=== PATIENT | male | born 1940 | race Hispanic/Latino ===

== ENCOUNTER 2017-07-25 20:19 | Inpatient (IN) | payer OTHER, MEDICARE ==
--- NOTE | 2017-07-25 21:08 | CT ---
EXAM: CT Head Without Intravenous Contrast EXAM DATE/TIME: 07/25/2017 8:44 PM CLINICAL HISTORY: 77 years old, male; Injury or trauma and signs and symptoms; Fall; Initial encounter; Concussion / head injury; Other: Lt weakness; Additional info: L weakness TECHNIQUE: Axial computed tomography images of the head/brain without intravenous contrast. All CT scans at this facility use one or more dose reduction techniques, viz.: automated exposure control; ma/kV adjustment per patient size (including targeted exams where dose is matched to indication; i.e. head); or iterative reconstruction technique. Coronal and sagittal reformatted images were created and reviewed. COMPARISON: CT HEAD OR BRAIN W/O CONT 2014-03-29 12:28 FINDINGS: Brain: There is prominence of sulci gyri and ventricles. There is no midline shift. There is decreased attenuation in periventricular white matter. There is a small age indeterminate lacunar infarct in the right basal ganglia. There is left parieto-occipital encephalomalacia. There are no focal masses. There are no focal hemorrhages. Jeffery-white differentiation is visualized. Ventricles: See above Bones: Cranial vault is intact. Soft tissues: There is right frontal scalp swelling with small hematoma. Sinuses: There is no acute sinusitis. Ears and mastoids: Middle ears and mastoids are unremarkable. Orbits: There are no acute orbital abnormalities. IMPRESSION: Mild atrophy and small vessel disease, no bleed; left parieto-occipital infarct; age indeterminate right basal infarct; small right frontal scalp hematoma
[2017-07-25 21:18] LABS: BASO # 0.1 K/uL (0.0-0.2); BASO % 0.6 % (0.0-2.0); EOS # 0.1 K/uL (0.0-0.7); EOS % 1.3 % (0.0-4.0); HEMATOCRIT 45.4 % (35.0-51.0); LYMPH # 1.9 K/uL (1.0-4.3); LYMPH % 16.2 % (20.0-40.0); MEAN CELL VOLUME 93.1 fl (80.0-94.0); MEAN CORPUSCULAR HGB CONC 33.3 g/dL (33.0-37.0); MEAN PLATELET VOLUME 8.4 fl (7.2-11.7); MONO # 0.7 K/uL (0.0-0.8); MONO % 6.4 % (0.0-10.0); NEUT # 8.7 K/uL (1.8-7.0); NEUT % 75.5 % (50.0-75.0); NRBC % 0.3 % (0.0-0.0); RED CELL DISTRIBUTION WIDTH 14.8 % (11.5-14.5); WHITE BLOOD COUNT 11.5 K/uL (4.8-10.8)
--- NOTE | 2017-07-25 21:18 | CT ---
EXAM: CT Cervical Spine Without Intravenous Contrast EXAM DATE/TIME: 07/25/2017 8:45 PM CLINICAL HISTORY: 77 years old, male; Injury or trauma; Fall; Initial encounter; Concussion /head injury; Injury details: Patient fell down stairs; Additional info: Trauma R/O FX TECHNIQUE: Axial computed tomography images of the cervical spine without intravenous contrast. All CT scans at this facility use one or more dose reduction techniques, viz.: automated exposure control; ma/kV adjustment per patient size (including targeted exams where dose is matched to indication; i.e. head); or iterative reconstruction technique. Coronal and sagittal reformatted images were created and reviewed. COMPARISON: There are no prior studies for comparison. FINDINGS: Vertebrae: There is straightening of the cervical lordosis. There is no prevertebral soft tissue swelling. Bony structures are osteopenic. There are small lucent lesions in multiple vertebral bodies. There are no fractures. There is multilevel degenerative change. There is narrowing of the pre-dental space. There is narrowing of all disc spaces. There are bulky osteophytes C4-C5 to T1/T2. There is narrowing of all facet joints.Facet joints align anatomically.Spinous processes align in the expected fashion. There is dystrophic ossification adjacent to the spinous process of C7. Discs/spinal canal/neural foramina: See above. Soft tissues: See above. Thyroid: Thyroid is unremarkable Lung apices: Motion limits evaluation of the lung apices. Lung apices are clear. IMPRESSION: Degenerative change no fracture Additional findings as described above.
[2017-07-25] MEDS ORDERED: Morphine 4 MG/ML VIAL IV STA ×4 (21:26→23:15)
[2017-07-25 21:28] LABS: ALB/GLOB RATIO 1.1 (1.0-2.1); ALCOHOL SERUM < 10 mg/dl (0-10); ALKALINE PHOSPHATASE 74 U/L (38-126); ALT/SGPT 35 U/L (21-72); AST/SGOT 25 U/L (17-59); BILIRUBIN,TOTAL 1.7 mg/dl (0.2-1.3); BLOOD UREA NITROGEN 34 mg/dl (9-20); CARBON DIOXIDE 27 mmol/L (22-30); CHLORIDE 103 mmol/L (98-107); CHOLESTEROL 183 mg/dL (0-199); GFR AFRICAN-AMERICAN 42; GLUCOSE,RANDOM 165 mg/dL (75-110); POTASSIUM 4.5 MMOL/L (3.6-5.0); SODIUM 138 mmol/l (132-148)
[2017-07-25] MEDS ORDERED: Morphine 4 MG/ML VIAL ONE ×3 (21:29→23:14)
[2017-07-25 21:34] LABS: PARTIAL THROMBOPLASTIN TIME 30.9 Seconds (25.6-37.1)
[2017-07-25] MEDS ORDERED: Iodixanol 320 MG/ML 100 ML BOTTLE IV ONE (21:39)
[2017-07-25] MEDS ORDERED: Sodium Chloride 0.9% 50 ML IV ONE (21:40)
--- NOTE | 2017-07-25 21:40 | CT ---
EXAM: CT Chest Without Intravenous Contrast CLINICAL HISTORY: 77 years old, male; Injury or trauma; Fall; Initial encounter; Concussion/head injury; Concussion /head injury; Additional info: Fall down stairs, CVA, trauma TECHNIQUE: Axial computed tomography images of the chest without intravenous contrast. All CT scans at this facility use one or more dose reduction techniques, viz.: automated exposure control; ma/kV adjustment per patient size (including targeted exams where dose is matched to indication; i.e. head); or iterative reconstruction technique. Coronal and sagittal reformatted images were created and reviewed. COMPARISON: CT chest 10/02/09 FINDINGS: Artifacts: Motion artifact degrades image quality. Lungs and Pleural Spaces: Trachea and main bronchi are patent. There are centrilobular emphysematous changes greatest in the right upper lobe. There is focal airspace disease in the lingula. There is dependent atelectasis. Left lower lobe is hyperinflated with attenuation of markings. There are mild atelectatic changes in the left upper lobe. There is a small left effusion. There is no right effusion. There is elevation of the left diaphragm. Heart and vasculature: Heart size is normal. There are coronary artery calcifications. There is a very small pericardial effusion.Aorta and main pulmonary artery are normal in caliber. There are vascular calcifications. Mediastinum: Esophagus is unremarkable. There are multiple mildly prominent mediastinal nodes. Suzanne noncontrast Thyroid: Thyroid is only partially imaged. Bones/joints: There are degenerative changes in the osseus structures. There are bridging osteophytes and syndesmophytes throughout the thoracic spine. There are no acute displaced rib fractures. There are postsurgical changes in the right shoulder. There are degenerative changes in the osseus structures. Soft tissues: unremarkable Upper abdomen: Referred to follow report for abdominal findings IMPRESSION: Emphysema; increasing left lower lobe hyperinflation with mild compressive atelectasis of the left upper lobe; a small left effusion; minimal lingular airspace disease; atherosclerotic disease; no acute displaced rib fractures Additional findings as described above. EXAM: CT Abdomen and Pelvis Without Intravenous Contrast EXAM DATE/TIME: 07/25/2017 8:54 PM CLINICAL HISTORY: 77 years old, male; Injury or trauma; Fall; Initial encounter; Concussion/head injury; Concussion /head injury; Additional info: Fall down stairs, CVA, trauma TECHNIQUE: Axial computed tomography images of the abdomen and pelvis without intravenous contrast. All CT scans at this facility use one or more dose reduction techniques, viz.: automated exposure control; ma/kV adjustment per patient size (including targeted exams where dose is matched to indication; i.e. head); or iterative reconstruction technique. Coronal and sagittal reformatted images were created and reviewed. COMPARISON: There are no prior studies for comparison. FINDINGS: Artifacts: Streak artifact degrades image quality. Lower thorax: Refer to prior report for chest findings ABDOMEN: Liver: unremarkable Gallbladder and bile ducts: Gallbladder is partially distended.Common duct is unremarkable. Pancreas: Pancreas is atrophic. Spleen: unremarkable Adrenals: unremarkable Kidneys and ureters: Kidneys appear mildly atrophic. There are parapelvic cysts. There is no pelvocaliectasis or ureterectasis. Stomach and bowel: Stomach is incompletely distended. Rotation is normal. There is fluid and air throughout the small bowel. There is no small bowel obstruction. Terminal ileum is unremarkable. Appendix is not visualized. There is no pericecal inflammation. Colon is incompletely distended which limits evaluation.There is diverticulosis. Appendix: See stomach and bowel PELVIS: Bladder: Bladder is incompletely distended. There is mild bladder wall thickening. Reproductive: Prostate is enlarged. Seminal vesicles are unremarkable. ABDOMEN and PELVIS: Intraperitoneal space: There is no free air or free fluid. Bones/joints: Bony structures are osteopenic. There are bridging osteophytes and syndesmophytes at multiple levels. There is degenerative disc disease at multiple levels. There is partial ankylosis of the left sacroiliac joint. Soft tissues: There are small collateral vessels in the left inguinal region and abdominal wall. There is a fat containing left inguinal hernia. There is a fat-containing umbilical hernia. Vasculature: An IVC filter is in place.There are vascular calcifications. Lymph nodes: There is no pathologic adenopathy. Other findings: Additional findings as described above. IMPRESSION: No acute solid visceral or bowel injury, no fracture seen Additional findings as described above.
--- NOTE | 2017-07-25 22:40 | ED PDOC ---
HPI:STROKE - Time Time: 20:30 - Historian Historian: Patient, Family - Chief Complaint Chief Complaint: Weakness, Confusion, Facial droop - Onset Date: 07/25/17 Time: 19:15 - Timing Timing: Currently Symptomatic - Context Context: Walking, Tripped - Location Locate left: Lower extremity - Severity of pain Maximum severity:: Severe Severity Current: Severe - Associated Symptoms Associated symptoms:: Anticoagulant use - Exacerbated by Exacerbated by:: Postition Change - Relieved by Relieved by:: Nothing - TPA Positive for Contraindication: Yes Reason tPA is not being Administered: trauma fall down 17 stairs, already using pradaxa - Notes: Notes:: 77yo male arrives via EMS w family states fell down 1 flight of stairs (17 carpeted stairs) to a landing where he was found by a neighbor about 15-20min ( estimated) after fall. On arrival to ED found to have L facial droop and left sided weakness, code stroke initiated. is poor historian, thinks he takes pradaxa for a blood clot? Unsure if has atrial fib history. Denies etoh abuse. Patient somewhat neglectful of left weakness, c/o back and left leg pain. Does state he went to a wake tonight, was more SOB than normal, attempted to climb 5 flights to apartment when SOB worsened, he remembers reaching for inhaler but states "Left arm wouldnt work right", then remembers falling. PMD Isaac Flores NIHSS Stroke Scale - Date/Time Evaluation Performed Date Performed: 07/25/17 Time Performed: 20:30 When Was NIHSS Performed: Baseline - How Severe is the Stroke Level of Consciousness: 0=Alert LOC to Questions: 0=Both comments correct LOC to commands: 0=Obeys both correctly Best Gaze: 0=Normal Visual: 0=No visual loss Facial: 2=Partial (lower face paralysis) Motor Arm - Left: 2=Falls before 10 sec Motor Arm - Right: 0=No drift Motor Leg - Left: 3=No effort against gravity (falls immediately) Motor Leg - Right: 0=No drift Limb Ataxia: 1=Present Upper or Lower Sensory: 0=Normal Best Language: 0=No aphasia Dysarthia: 0=Normal articulation Extinction & Inattention (Neglect): 1=Partial neglect (mild edmar-attention) Score: 9 rTPA Inclusion/Exclusion - Refusal of Treatment Patient Refused Treatment: No - Inclusion Criteria for Altepase Patient is 18 years or Older: Yes The Clinical Diagnosis of Ischemic Stroke That is Causing a Potentially Disabling Neurological Deficit: Yes Time of Onset is Well Established to be Less Than 270 Minute Before Treatment Would Begin: Yes Risk/Benefit Discussed With Patient/Family Member Present: Yes - Exclusion Criteria for Altepase Uncontrolled Hypertension at Time of Treatment (Systolic BP above 185 or Diastolic BP above 110 mmHg): No Less Than 3 Months Had a Recent: Head Trauma Active Internal Bleeding: No Known Bleeding Diathesis Including but Not Limited to: Platelets Below 100,000/ mm,PTT Above 40 sec After Heparin Use, Current Use of Oral Anitcoagulant With INR Greater Than 1.7 or PT Greater Than 15 secs: No Evidence of an Intracranial Hemorrhage: No - Warning to TPA With Conditions Following Conditions Weighed Against Anticipated Benefit: Yes Condition: Rapid Improvement Additional Condition (For 3-4.5 Hour Window): Any anticoagulant use prior to admission (Even if INR less than 1.7) (fall with multisystem trauma) Past Medical History Reviewed: Historical Data, Nursing Documentation, Vital Signs Vital Signs: Last Vital Signs Temp 98.1 F 07/25/17 20:22 Pulse 87 07/25/17 20:22 Resp 18 07/25/17 20:22 BP 143/92 H 07/25/17 20:22 Pulse Ox 96 07/25/17 20:22 - Medical History PMH: Atrial Fibrillation, COPD, HTN - Family History Family History: States: Unknown Family Hx - Living Arrangements Living Arrangements: With Family - Social History Current smoker - smoking cessation education provided: No - Allergies Allergies/Adverse Reactions: Allergies Allergy/AdvReac Type Severity Reaction Status Date / Time No Known Allergies Allergy Verified 07/25/17 20:24 Review of Systems Constitutional: Negative for: Fever, Chills Cardiovascular: Negative for: Chest Pain, Palpitations Respiratory: Positive for: Cough, Shortness of Breath Gastrointestinal: Negative for: Nausea, Vomiting, Abdominal Pain Musculoskeletal: Positive for: Shoulder Pain, Arm Pain, Back Pain, Hand Pain, Leg Pain, Foot Pain Skin: Negative for: Rash, Lesions, Jaundice Neurological: Positive for: Weakness, Dizziness. Negative for: Numbness, Headache Psych: Negative for: Depression Physical Exam - Reviewed Nursing Documentation Reviewed: Yes Vital Signs Reviewed: Yes - Physical Exam Appears: Positive for: Non-toxic (L facial droop with slight dysarthria, dry, scattered abrasions extremities) Head Exam: Positive for: NORMAL INSPECTION, NORMOCEPHALIC. Negative for: ATRAUMATIC (L scalp frontal contusion) Skin: Positive for: Normal Color, Warm, DRY Eye Exam: Positive for: EOMI, Normal appearance, PERRL ENT: Positive for: Normal ENT Inspection Neck: Positive for: Normal, Painless ROM Cardiovascular/Chest: Positive for: Tachycardia, Irregularly Irregular Respiratory: Positive for: Decreased Breath Sounds. Negative for: Respiratory Distress Pulses-Radial (L): 3+/4+ Pulses-Radial (R): 3+/4+ Gastrointestinal/Abdominal: Positive for: Bowel Sounds, Soft, Other (umbilical hernia). Negative for: Tenderness Back: Positive for: Vertebral Tenderness, Decreased ROM, Muscle Spasm Extremity: Positive for: Tenderness (L hand, L anlkle), Swelling (L wrist/hand/ L ankle) Neurologic/Psych: Positive for: Alert, manager transplant II-XII (L facial droop), Motor/ Sensory Deficits, Other (LUE and LLE weakness, L facial droop, mild confusion/ L neglect). Negative for: Oriented, Aphasia - Laboratory Results Result Diagrams: 07/25/17 21:02 07/25/17 21:02 - ECG O2 Sat by Pulse Oximetry: 96 Pulse Ox Interpretation: Normal Medical Decision Making Medical Decision Making: code stroke initiated CT brain report reviewed d/w rads 9:00pm Dr Slaughter [employer] neuro contacted, case discussed, not candidate for peripheral TPA given major trauma and already on pradaxa. Rec obtain CTA head/neck for possible intervention CTA brain/neck revealed large PE left main/ descending. CT CHest/abd/pelv without contrast ordered r/o traumatic injury. Report from [facility] reviewed. D/w pulmonary and PMD Dr Gray who agrees likely start heparin, unsure if taking pradaxa given developing major PE. D/w Dr Slaughter- consider PFO, need echo w bubble study. ASA 300mg rectal given. Also c/o polyarthralgia from fall- found to have nondisplaced L distal fib fracture, podiatry notified for am consult and L post splint LE placed. L hand appears chronic DJD, unclear if fracture present. Pt states +prior old navicular fracture. Splint placed to L hand. On re-eval at 1030p- L motor improved to 4/5 LUE and LLE. Facial droop improved but persists. Labs reviewed, mild elev BUN/Horse Race Starter, benefits of IV contrast outweight risks. IVF initiated. Admitted Dr Overton hospitalist ICU given acute CVA, acute PE, trauma. Family updated on findings and decision for blood thinning medication discussed. Risks of bleeding explained and questions answered, benefits of treatment of large PE outweigh risks. CTA: VASCULATURE: Right common carotid artery: Unremarkable. No significant stenosis. No dissection or occlusion. Right internal carotid artery: Less than 30% stenosis is identified within the right internal carotid artery, at the level of the bifurcation. The extracranial segment is otherwise patent with no significant stenosis. No dissection or occlusion. Right external carotid artery: Unremarkable. No occlusion. Right vertebral artery: Unremarkable. No significant stenosis. No dissection or occlusion. Left common carotid artery: Unremarkable. No significant stenosis. No dissection or occlusion. Left internal carotid artery: Approximately 30% narrowing is identified at the level of the bifurcation. Extracranial segment is otherwise patent with no significant stenosis. No dissection or occlusion. Left external carotid artery: Unremarkable. No occlusion. Left vertebral artery: Unremarkable. No significant stenosis. No dissection or occlusion. ADELAASYA Marquis | Final Radiology Report CONFIDENTIALITY STATEMENT This report is intended only for use by the referring physician, and only in accordance with law. If you received this in error, call [phone]. Page 3 of 3 NECK: Bones/joints: No acute fracture. No dislocation. Soft tissues: Unremarkable as visualized. No mass. Within the visualized lung britton, is a significant filling defect within the left main and descending pulmonary artery, consistent with pulmonary embolus. CAROTID STENOSIS REFERENCE USING NASCET CRITERIA: % ICA stenosis = (1 - narrowest ICA diameter/diameter of distal cervical ICA) x 100. Mild - <50% stenosis. Moderate - 50-69% stenosis. Severe - 70-94% stenosis. Near occlusion - 95-99% stenosis. Occluded - 100% stenosis. IMPRESSION: Mild stenosis within the bilateral internal carotid arteries at the level of the bifurcations, as detailed above. Findings within the left main and descending pulmonary artery, consistent with pulmonary embolus. Thank you for allowing us to participate in the care of your patient. Dictated and Authenticated by: Leigh Kothari MD 07/25/2017 11:10 PM Eastern Time ([place] & [place]) TECHNIQUE: Axial computed tomography images of the abdomen and pelvis without intravenous contrast. All CT scans at this facility use one or more dose reduction techniques, viz.: automated exposure control; ma/kV adjustment per patient size (including targeted exams where dose is matched to indication; i.e. head); or iterative reconstruction technique. Coronal and sagittal reformatted images were created and reviewed. COMPARISON: There are no prior studies for comparison. FINDINGS: Artifacts: Streak artifact degrades image quality. Lower thorax: Refer to prior report for chest findings ABDOMEN: Liver: unremarkable Gallbladder and bile ducts: Gallbladder is partially distended.Common duct is unremarkable. Pancreas: Pancreas is atrophic. Spleen: unremarkable Adrenals: unremarkable Kidneys and ureters: Kidneys appear mildly atrophic. There are parapelvic cysts. There is no pelvocaliectasis or ureterectasis. Stomach and bowel: Stomach is incompletely distended. Rotation is normal. There is fluid and air throughout the small bowel. There is no small bowel obstruction. Terminal ileum is unremarkable. Appendix is not visualized. There is no pericecal inflammation. Colon is incompletely distended which limits evaluation.There is diverticulosis. Appendix: See stomach and bowel PELVIS: Bladder: Bladder is incompletely distended. There is mild bladder wall thickening. Reproductive: Prostate is enlarged. Seminal vesicles are unremarkable. ABDOMEN and PELVIS: Intraperitoneal space: There is no free air or free fluid. Bones/joints: Bony structures are osteopenic. There are bridging osteophytes and syndesmophytes at multiple levels. There is degenerative disc disease at multiple levels. There is partial ankylosis of the left sacroiliac joint. Soft tissues: There are small collateral vessels in the left inguinal region and abdominal wall. There is a fat containing left inguinal hernia. There is a fat-containing umbilical hernia. Vasculature: An IVC filter is in place.There are vascular calcifications. Lymph nodes: There is no pathologic adenopathy. Other findings: Additional findings as described above. IMPRESSION: No acute solid visceral or bowel injury, no fracture seen Additional findings as described above. Thank you for allowing us to participate in the care of your patient. Dictated and Authenticated by: Dorie Lee MD 07/25/2017 9:39 PM Eastern Time ([place] & [place]) CLINICAL HISTORY: 77 years old, male; Injury or trauma and signs and symptoms; Fall; Initial encounter; Concussion / head injury; Other: Lt weakness; Additional info: L weakness TECHNIQUE: Axial computed tomography images of the head/brain without intravenous contrast. All CT scans at this facility use one or more dose reduction techniques, viz.: automated exposure control; ma/kV adjustment per patient size (including targeted exams where dose is matched to indication; i.e. head); or iterative reconstruction technique. Coronal and sagittal reformatted images were created and reviewed. COMPARISON: CT HEAD OR BRAIN W/O CONT 2014-03-29 12:28 FINDINGS: Brain: There is prominence of sulci gyri and ventricles. There is no midline shift. There is decreased attenuation in periventricular white matter. There is a small age indeterminate lacunar infarct in the right basal ganglia. There is left parieto-occipital encephalomalacia. There are no focal masses. There are no focal hemorrhages. Jeffery-white differentiation is visualized. Ventricles: See above Bones: Cranial vault is intact. Soft tissues: There is right frontal scalp swelling with small hematoma. Sinuses: There is no acute sinusitis. Ears and mastoids: Middle ears and mastoids are unremarkable. Orbits: There are no acute orbital abnormalities. IMPRESSION: Mild atrophy and small vessel disease, no bleed; left parieto- occipital infarct; age indeterminate right basal infarct; small right frontal scalp hematoma Thank you for allowing us to participate in the care of your patient. LORENE ASYA | Final Radiology Report CONFIDENTIALITY STATEMENT This report is intended only for use by the referring physician, and only in accordance with law. If you received this in error, call [phone]. Page 2 of 2 Dictated and Authenticated by: Dorie Lee MD Disposition - Clinical Impression Clinical Impression: Pulmonary embolism, CVA (cerebral vascular accident), Left fibular fracture, Dehydration, Wrist injury - Patient ED Disposition Is Patient to be Admitted: Yes - Disposition Disposition Time: 22:30 Condition: CRITICAL Forms: [employer] (Romanian) - Pt Status Changed To: Hospital Disposition Of: Inpatient - Admit Certification Admit to Inpatient:: After my assessment, the patient will require hospitalization for at least two midnights. This is because of the severity of symptoms shown, intensity of services needed, and/or the medical risk in this patient being treated as an outpatient. - POA Present On Arrival: Falls Or Trauma
[2017-07-25] MEDS ORDERED: Sodium Chloride 0.9% 1,000 ML IV STA (23:10)
--- NOTE | 2017-07-25 23:10 | CT ---
EXAM: CT Angiography Head With Intravenous Contrast CLINICAL HISTORY: 77 years old, male; Signs and symptoms; Weakness; Additional info: L side weakness. TECHNIQUE: Axial computed tomographic angiography images of the head with intravenous contrast using CT angiography protocol. All CT scans at this facility use one or more dose reduction techniques, viz.: automated exposure control; ma/kV adjustment per patient size (including targeted exams where dose is matched to indication; i.e. head); or iterative reconstruction technique. MIP reconstructed images were created and reviewed. Coronal and sagittal reformatted images were created and reviewed. CONTRAST: 80 mL of [id number] administered intravenously. COMPARISON: No relevant prior studies available. FINDINGS: Right internal carotid artery: No acute findings. Intracranial segment is patent with no significant stenosis. No aneurysm. Right anterior cerebral artery: Unremarkable. No occlusion or significant stenosis. No aneurysm. Right middle cerebral artery: Unremarkable. No occlusion or significant stenosis. No aneurysm. Right posterior cerebral artery: Unremarkable. No occlusion or significant stenosis. No aneurysm. Right vertebral artery: Mild atherosclerotic change. Left internal carotid artery: 30-40% stenosis of the cavernous internal carotid artery. The Intracranial segment is otherwise patent with no significant stenosis. No aneurysm. Left anterior cerebral artery: Unremarkable. No occlusion or significant stenosis. No aneurysm. Left middle cerebral artery: Unremarkable. No occlusion or significant stenosis. No aneurysm. Left posterior cerebral artery: Unremarkable. No occlusion or significant stenosis. No aneurysm. Left vertebral artery: Mild atherosclerotic change. Basilar artery: Unremarkable. No occlusion or significant stenosis. No aneurysm. IMPRESSION: Mild stenosis within the supraclinoid left internal carotid artery, as detailed above. Otherwise, largely unremarkable CTA examination of the brain, as detailed above. EXAM: CT Angiography Neck With Intravenous Contrast CLINICAL HISTORY: 77 years old, male; Signs and symptoms; Weakness; Additional info: L side weakness. TECHNIQUE: Axial computed tomographic angiography images of the neck with intravenous contrast using CT angiography protocol. All CT scans at this facility use one or more dose reduction techniques, viz.: automated exposure control; ma/kV adjustment per patient size (including targeted exams where dose is matched to indication; i.e. head); or iterative reconstruction technique. MIP reconstructed images were created and reviewed. Coronal and sagittal reformatted images were created and reviewed. CONTRAST: 80 mL of [id number] administered intravenously. COMPARISON: CT - HEAD W/O (CODE STROKE) 2017-07-25 20:46 FINDINGS: VASCULATURE: Right common carotid artery: Unremarkable. No significant stenosis. No dissection or occlusion. Right internal carotid artery: Less than 30% stenosis is identified within the right internal carotid artery, at the level of the bifurcation. The extracranial segment is otherwise patent with no significant stenosis. No dissection or occlusion. Right external carotid artery: Unremarkable. No occlusion. Right vertebral artery: Unremarkable. No significant stenosis. No dissection or occlusion. Left common carotid artery: Unremarkable. No significant stenosis. No dissection or occlusion. Left internal carotid artery: Approximately 30% narrowing is identified at the level of the bifurcation. Extracranial segment is otherwise patent with no significant stenosis. No dissection or occlusion. Left external carotid artery: Unremarkable. No occlusion. Left vertebral artery: Unremarkable. No significant stenosis. No dissection or occlusion. NECK: Bones/joints: No acute fracture. No dislocation. Soft tissues: Unremarkable as visualized. No mass. Within the visualized lung britton, is a significant filling defect within the left main and descending pulmonary artery, consistent with pulmonary embolus. CAROTID STENOSIS REFERENCE USING NASCET CRITERIA: % ICA stenosis = (1 - narrowest ICA diameter/diameter of distal cervical ICA) x 100. Mild - <50% stenosis. Moderate - 50-69% stenosis. Severe - 70-94% stenosis. Near occlusion - 95-99% stenosis. Occluded - 100% stenosis. IMPRESSION: Mild stenosis within the bilateral internal carotid arteries at the level of the bifurcations, as detailed above. Findings within the left main and descending pulmonary artery, consistent with pulmonary embolus.
[2017-07-25 23:52] VITALS: BMI 30.1
[2017-07-25] MEDS ORDERED: Heparin25000 units/250ml 1/2NS 25,000 UNITS/250 ML BAG IV ONE (23:54)
[2017-07-26] MEDS ORDERED: Metoprolol 1 mg/ml Inj IVP SCH (00:15)
--- NOTE | 2017-07-26 00:15 | CP.PCM.HP ---
History of Present Illness - History of Present Illness History of Present Illness: CC: Fall, R CVA, PE; ankle fx HPI: 77 y/o male who was brought in by EMS after he fell down a flight of 17 stairs. Per report by him and family, dropped patient off at front of apt after an event and went to park the car. Patient was climbing up stairs and became SOB, and tried to use his inhaler, however, he noted difficulty using L arm to take out inhaler. He then felt unsteady, and apparently fell down the stairs. He was found by a neighbor awake, but confused. Neighbor called EMS, by which time had arrived as well. It was about 25 minutes between when he was dropped off and when EMS was called. When family arrived in ED, did note a facial droop on L which was new, as well as slurred speech. Patient currently continues to c/o LUE and LLE weakness, but states better than it was earlier. Denies CP, SOB. Denies f/c/n/v/d. Patient denies any EtOH. Patient is on Pradaxa which he says he is compliant with. PMD: Isaac ROS: 14 systems reviewed, negative other than HPI MHx: COPD, DM2, A fib, prior DVT/PE SHx: None Allergies: NKDA Medications: As per med rec (on Pradaxa as above) Family Hx: No findings relevant to current condition Social: Lives with family, prior history of smoking, prior EtOH, no current usage Surrogate: , info on chart Present on Admission - Present on Admission Any Indicators Present on Admission: No Past Patient History - Past Social History Smoking Status: Former Smoker - CARDIAC Hx Atrial Fibrillation: Yes Hx Hypertension: Yes - PULMONARY Hx Chronic Obstructive Pulmonary Disease (COPD): Yes - GASTROINTESTINAL Other/Comment: GI Bleed - PSYCHIATRIC Hx Substance Use: No - SURGICAL HISTORY Other/Comment: left hand Meds Allergies/Adverse Reactions: Allergies Allergy/AdvReac Type Severity Reaction Status Date / Time No Known Allergies Allergy Verified 07/25/17 20:24 Physical Exam - Constitutional Appears: No Acute Distress - Head Exam Head Exam: ATRAUMATIC, NORMOCEPHALIC - Eye Exam Eye Exam: EOMI, PERRL - ENT Exam ENT Exam: Mucous Membranes Moist - Neck Exam Neck exam: Positive for: Full Rom - Respiratory Exam Respiratory Exam: Rhonchi, NORMAL BREATHING PATTERN - Cardiovascular Exam Cardiovascular Exam: Irregular Rhythm, +S1, +S2 - GI/Abdominal Exam GI & Abdominal Exam: Normal Bowel Sounds, Soft - Extremities Exam Extremities exam: Positive for: full ROM, normal inspection Additional comments: 3/5 strength in LUE and LLE - Neurological Exam Neurological exam: Alert, Oriented x3 Additional comments: L facial droop, L sided weakness as above - Psychiatric Exam Psychiatric exam: Normal Affect, Normal Mood - Skin Skin Exam: Dry, Warm Results - Vital Signs Recent Vital Signs: Last Vital Signs Temp 98.1 F 07/25/17 20:22 Pulse 97 H 07/25/17 23:31 Resp 16 07/25/17 23:31 BP 123/82 07/25/17 23:31 Pulse Ox 96 07/26/17 00:10 - Labs Result Diagrams: 07/26/17 04:20 07/26/17 04:20 Labs: Laboratory Results - last 24 hr 07/25/17 07/25/17 07/25/17 21:02 21:02 21:02 WBC 11.5 H RBC 4.88 Hgb 15.1 Hct 45.4 MCV 93.1 MCH 31.0 MCHC 33.3 RDW 14.8 H Plt Count 180 MPV 8.4 Neut % (Auto) 75.5 H Lymph % (Auto) 16.2 L Alpine % (Auto) 6.4 Eos % (Auto) 1.3 Baso % (Auto) 0.6 Neut # 8.7 H Lymph # 1.9 Alpine # 0.7 Eos # 0.1 Baso # 0.1 PT 13.5 H INR 1.2 APTT 30.9 Sodium 138 Potassium 4.5 Chloride 103 Carbon Dioxide 27 Anion Gap 13 BUN 34 H Creatinine 1.9 H Est GFR ( Amer) 42 Est GFR (Non-Af Amer) 35 Random Glucose 165 H Calcium 9.0 Total Bilirubin 1.7 H AST 25 ALT 35 Alkaline Phosphatase 74 Troponin I < 0.0120 NT-Pro-B Natriuret Pep 1710 H Total Protein 8.0 Albumin 4.2 Globulin 3.8 Albumin/Globulin Ratio 1.1 Triglycerides 135 Cholesterol 183 LDL Cholesterol Direct 131 H HDL Cholesterol 32 Alcohol, Quantitative < 10 Blood Type Antibody Screen BBK History Checked 07/25/17 21:02 WBC RBC Hgb Hct MCV MCH MCHC RDW Plt Count MPV Neut % (Auto) Lymph % (Auto) Alpine % (Auto) Eos % (Auto) Baso % (Auto) Neut # Lymph # Alpine # Eos # Baso # PT INR APTT Sodium Potassium Chloride Carbon Dioxide Anion Gap BUN Creatinine Est GFR ( Amer) Est GFR (Non-Af Amer) Random Glucose Calcium Total Bilirubin AST ALT Alkaline Phosphatase Troponin I NT-Pro-B Natriuret Pep Total Protein Albumin Globulin Albumin/Globulin Ratio Triglycerides Cholesterol LDL Cholesterol Direct HDL Cholesterol Alcohol, Quantitative Blood Type A POSITIVE Antibody Screen Negative BBK History Checked Patient has bt - EKG Data EKG Interpreted by: Myself - EKG Data EKG comments: a fib, rate controlled - Imaging and Cardiology CT scan - chest Status: Image reviewed by me, Report reviewed by me (CTA:) Assessment & Plan (1) CVA (cerebral vascular accident) Assessment and Plan: 77 y/o male with multiple medical conditions presenting with R CVA with L deficits as well as a large PE in the setting of already being on Pradaxa. 1) CVA -admit ICU -NPO, IVF -got rectal ASA x 1 -q6h accucheck, SSI for DM control -allow BP to run higher -Tylenol W[place] for fever -Echo in AM -Neuro c/s in AM 2) PE -Patient on full dose heparin 3) ARF -IVF -dose meds renally -repeat BMP in AM 4) A fib -Metoprolol 5 mg IV q6h PRN to control rate -Hold other b-B/CCB for now given recent CVA, allow BP to run higher 5) DM2 -Patient NPO, q6h accucheck -SSI only for now 6) Ankle Fx -pain control -podiatry consult in AM 7) DVT PPx -- on full dose heparin Status: Acute (2) Pulmonary embolism Status: Acute (3) ARF (acute renal failure) Status: Acute (4) Left fibular fracture Status: Acute (5) Wrist injury Status: Acute (6) COPD (chronic obstructive pulmonary disease) Status: Acute (7) DM2 (diabetes mellitus, type 2) Status: Acute (8) DVT prophylaxis Status: Acute
[2017-07-26] MEDS: Heparin25000 units/250ml 1/2NS 25,000 UNITS/250 ML BAG IV SCH ×2 (00:34→17:16)
[2017-07-26] MEDS ORDERED: Albuterol-Ipratrop 3 mg / 0.5 (3 ml) UD INH PRN (00:42)
[2017-07-26] MEDS: Sodium Chloride 0.9% 1,000 ML IV STA ×2 (04:57→12:33)
[2017-07-26] MEDS: Insulin Lispro (humaLOG) 100 Units/ml Inj SC SCH ×3 (04:58→12:49)
[2017-07-26 05:48] LABS: HEMATOCRIT 41.9 % (35.0-51.0); MEAN CELL VOLUME 93.6 fl (80.0-94.0); MEAN CORPUSCULAR HGB CONC 33.1 g/dL (33.0-37.0); RED CELL DISTRIBUTION WIDTH 14.2 % (11.5-14.5); WHITE BLOOD COUNT 9.4 K/uL (4.8-10.8)
[2017-07-26 05:51] LABS: CALCIUM 8.7 mg/dL (8.4-10.2); POTASSIUM 4.7 MMOL/L (3.6-5.0)
[2017-07-26] MEDS ORDERED: Influenza Vaccine 18yr & older 0.5 ML/45 MCG SYR IM ONE (09:28)
[2017-07-26] MEDS ORDERED: Pneumococcal 23-Valent Vaccine IM ONE (09:29)
--- NOTE | 2017-07-26 09:36 | RAD ---
HISTORY: fall COMPARISON: Chest radiograph dated 03/29/2014 FINDINGS: LUNGS: Stable chronic prominence of the bilateral interstitial markings. No focal consolidation. PLEURA: Elevation of the left hemidiaphragm, stable. Small left pleural effusion. No pneumothorax apparent. CARDIOVASCULAR: Cardiomediastinal silhouette stably prominent. OSSEOUS STRUCTURES: Unchanged. VISUALIZED UPPER ABDOMEN: Normal. OTHER FINDINGS: None. IMPRESSION: Stable chronic prominence of the bilateral interstitial markings. Small left pleural effusion.
--- NOTE | 2017-07-26 09:37 | RAD ---
PROCEDURE: Left Hip X-ray Radiographs. HISTORY: fall COMPARISON: Left hip radiographs dated 10/12/2009. FINDINGS: BONES: No fracture. JOINTS: Mild narrowing of both hips. SOFT TISSUES: Normal. OTHER FINDINGS: None. IMPRESSION: Mild bilateral hip degenerative changes. No demonstrated fracture or dislocation.
--- NOTE | 2017-07-26 09:39 | RAD ---
PROCEDURE: Left Ankle Radiographs. HISTORY: fall down stairs COMPARISON: None FINDINGS: BONES: Relatively nondisplaced lateral malleolar fracture. JOINTS: Normal. No osteoarthritis. Ankle mortise maintained. Talar dome intact SOFT TISSUES: Marked lateral malleolar soft tissue swelling and small ankle joint effusion. OTHER FINDINGS: None. IMPRESSION: Relatively nondisplaced lateral malleolar fracture.
--- NOTE | 2017-07-26 09:40 | RAD ---
PROCEDURE: Radiographs of the left elbow. HISTORY: fall down stairs COMPARISON: No prior. FINDINGS: BONES: Normal. No fracture. JOINTS: Mildly narrowed. SOFT TISSUES: Normal. JOINT EFFUSION: None. OTHER FINDINGS: Calcific tendinitis of the triceps tendon IMPRESSION: No demonstrated fracture dislocation. Calcific tendinitis of the triceps tendon.
[2017-07-26] MEDS ORDERED: Albuterol 0.083% Inhal Sol (2.5 mg/3 mL) UD INH PRN (09:41)
--- NOTE | 2017-07-26 09:41 | RAD ---
PROCEDURE: Radiographs of the Left Forearm HISTORY: fall down stairs COMPARISON: None available. TECHNIQUE: Frontal and lateral views obtained. FINDINGS: BONES: No fracture or destructive lesion. JOINT SPACES: severe chronic arthritic change involving the wrist with extensive subchondral cyst formation and joint space narrowing. OTHER FINDINGS: None. IMPRESSION: No demonstrated fracture dislocation. Severe wrist degenerative change.
--- NOTE | 2017-07-26 09:42 | RAD ---
PROCEDURE: Left Wrist Radiographs. HISTORY: fall down stairs COMPARISON: None. FINDINGS: BONES: No fracture. JOINTS: Severe chronic degenerative change with extensive subchondral cyst formation and joint space narrowing. Proximal carpal row not clearly identified. SOFT TISSUES: Normal. OTHER FINDINGS: None. IMPRESSION: Severe chronic appearing degenerative change involving the wrist as described above.
--- NOTE | 2017-07-26 09:44 | RAD ---
PROCEDURE: Left Femur Radiographs. HISTORY: fall COMPARISON: None. TECHNIQUE: AP and Lateral Radiographs of the left femur. FINDINGS: FEMUR: No fracture. SOFT TISSUES: Normal. OTHER FINDINGS: Mild hip joint and tibial femoral compartment narrowing. IMPRESSION: No demonstrated fracture dislocation. Mild left hip and knee degenerative changes.
--- NOTE | 2017-07-26 09:45 | RAD ---
PROCEDURE: Left Knee Radiographs. HISTORY: Pain. COMPARISON: None. FINDINGS: BONES: No fracture. JOINTS: Mild tricompartmental narrowing. JOINT EFFUSION: None. OTHER FINDINGS: None. IMPRESSION: No demonstrated fracture dislocation. Mild degenerative changes.
--- NOTE | 2017-07-26 09:46 | RAD ---
PROCEDURE: Radiographs of the Right Shoulder HISTORY: fall COMPARISON: No prior. FINDINGS: BONES: No fracture. Prior rotator cuff repair with surgical tack over the humeral head. JOINTS: Glenohumeral and acromioclavicular joints preserved. SOFT TISSUES: Normal. OTHER FINDINGS: None. IMPRESSION: No demonstrated fracture or dislocation.
--- NOTE | 2017-07-26 10:11 | CP.PCM.CON ---
History of Present Illness - History of Present Illness History of Present Illness: This 77 year old male, a former heavy cigarette smoker with a longstanding H/O COPD, had climbed approximately 3 flights of stairs in his home and became SOB. When he reached for his inhaler he claims his arm 'felt funny'. He used his inhaler with the other hand, but suddenly fell w/o LOC, but had no ability to stop his fall. When found by a neighbor 911 was called and he was brought in to the ER where there was left upper and lower extremity weakness and a facial droop with slurred speach. He sustained multiple injuries with the fall including a fractured left ankle. His respiratory status has been stable on his current regimen. He is taking Pradaxa for chronic atrial fibrillation. 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 Review of Systems - Constitutional Constitutional: Daytime Sleepiness - Cardiovascular Cardiovascular: Irregular Heart Rhythm - Respiratory Respiratory: Cough, Dyspnea on Exertion - Genitourinary Genitourinary: Urinary Frequency, Urinary Urgency - Hematologic/Lymphatic Hematologic: Easy Bruising Past Patient History - Past Medical History & Family History Past Medical History?: Yes Pertinent Family History: Liver cancer. - Past Social History Smoking Status: Former Smoker Chewing Tobacco Use: No Cigar Use: No Alcohol: Social Drugs: Denies Home Situation {Lives}: With Family - CARDIAC Hx Atrial Fibrillation: Yes Hx Hypertension: Yes Hx Peripheral Edema: Yes - PULMONARY Hx Chronic Obstructive Pulmonary Disease (COPD): Yes Hx Pneumonia: Yes Hx Pulmonary Embolism: Yes - NEUROLOGICAL Hx Neurological Disorder: No - HEENT Hx HEENT Problems: No - RENAL Hx Chronic Kidney Disease: No - ENDOCRINE/METABOLIC Hx Diabetes Mellitus Type 2: Yes - HEMATOLOGICAL/ONCOLOGICAL Hx Blood Disorders: No Hx Human Immunodeficiency Virus (HIV): No - INTEGUMENTARY Hx Cellulitis: Yes - MUSCULOSKELETAL/RHEUMATOLOGICAL Hx Arthritis: Yes Hx Falls: Yes - GASTROINTESTINAL Hx Gastritis: Yes Other/Comment: GI Bleed - GENITOURINARY/GYNECOLOGICAL Hx Prostate Problems: Yes - PSYCHIATRIC Hx Psychophysiologic Disorder: No Hx Substance Use: No - SURGICAL HISTORY Other/Comment: IVC filter placement 2009. Left hand - ANESTHESIA Hx Anesthesia: Yes Hx Anesthesia Reactions: No Hx Malignant Hyperthermia: No Has any member of the family had a problem w/ anesthesia?: No Meds Allergies/Adverse Reactions: Allergies Allergy/AdvReac Type Severity Reaction Status Date / Time No Known Allergies Allergy Verified 07/25/17 20:24 - Medications Medications: Current Medications Acetaminophen (Tylenol 325 Mg Supp) 325 mg IL Q6 PRN PRN Reason: Fever >100.4 F Albuterol Sulfate (Albuterol 0.083% Inhal Yesy (2.5 Mg/3 Ml) Ud) 2.5 mg INH RQ4 PRN PRN Reason: Shortness of Breath Albuterol/Ipratropium (Duoneb 3 Mg/0.5 Mg (3 Ml) Ud) 3 ml INH RQID MUNA Atorvastatin Calcium (Lipitor) 40 mg PO DAILY [facility] Heparin Sodium/Sodium Chloride (Heparin 36516 Units/250ml 1/2 Normal Saline) 25 ,000 units in 250 mls @ 18 mls/hr IV .[id number] [facility] PRN Reason: Protocol Last Titration: 07/26/17 08:00 Dose: 15 mls/hr Sodium Chloride (Sodium Chloride 0.9%) 1,000 mls @ 75 mls/hr IV .[id number] STA Stop: 07/26/17 12:29 Last Admin: 07/26/17 04:57 Dose: 75 mls/hr Insulin Human Lispro (Humalog) 0 units SC Q6H MUNA PRN Reason: Protocol Last Admin: 07/26/17 09:05 Dose: 2 units Metoprolol Tartrate (Lopressor) 5 mg IVP Q6H PRN PRN Reason: For HR sustained > 120 Morphine Sulfate (Morphine) 1 mg IVP Q4 PRN PRN Reason: Pain, Mild (1-3) Morphine Sulfate (Morphine) 2 mg IVP Q4H PRN PRN Reason: Pain, moderate (4-7) Last Admin: 07/26/17 09:07 Dose: 2 mg Ondansetron HCl (Zofran Inj) 4 mg IVP Q6H PRN PRN Reason: Nausea/Vomiting Physical Exam - Additional Findings Additional findings: Speech is fluent, slight slurring noted. Residual left facial droop noted. Ecchymosis over right eyebrow. Dressings applied to left forearm and wrist as well as left ankle. There is no palpable lymphadenopathy. The neck is supple and trachea is midline. No neck vein distention. No carotid bruit. Pharynx is pink and mucous membranes are dry, no exudate. No dullness on chest percussion. No subcut emphysema. No chest wall ecchymosis. Breath sounds are diminished bilaterally. Scattered dry rales and occasional expiratory wheezes are heard in both lungs. No bronchial breath sounds or egophony. Few sonorous rhonchi in dependant areas. No rub. Heart sounds are distant and the rhythm is irregular, tachycardic. Abdomen is soft and nontender with normal bowel sounds. No palpable HSM. No CVA tenderness. Left upper and lower extremity weakness. Trace ankle edema on the left. Results - Vital Signs Recent Vital Signs: Last Vital Signs Temp 99.2 F 07/26/17 08:00 Pulse 109 H 07/26/17 08:00 Resp 22 07/26/17 08:00 BP 117/85 07/26/17 08:00 Pulse Ox 95 07/26/17 08:00 - Labs Result Diagrams: 07/27/17 05:20 07/27/17 05:25 Labs: Laboratory Results - last 24 hr 07/25/17 07/25/17 07/25/17 21:02 21:02 21:02 WBC 11.5 H RBC 4.88 Hgb 15.1 Hct 45.4 MCV 93.1 MCH 31.0 MCHC 33.3 RDW 14.8 H Plt Count 180 MPV 8.4 Neut % (Auto) 75.5 H Lymph % (Auto) 16.2 L Hind[place] % (Auto) 6.4 Eos % (Auto) 1.3 Baso % (Auto) 0.6 Neut # 8.7 H Lymph # 1.9 Hinds # 0.7 Eos # 0.1 Baso # 0.1 PT 13.5 H INR 1.2 APTT 30.9 Sodium 138 Potassium 4.5 Chloride 103 Carbon Dioxide 27 Anion Gap 13 BUN 34 H Creatinine 1.9 H Est GFR ( Amer) 42 Est GFR (Non-Af Amer) 35 POC Glucose (mg/dL) Random Glucose 165 H Calcium 9.0 Total Bilirubin 1.7 H AST 25 ALT 35 Alkaline Phosphatase 74 Troponin I < 0.0120 NT-Pro-B Natriuret Pep 1710 H Total Protein 8.0 Albumin 4.2 Globulin 3.8 Albumin/Globulin Ratio 1.1 Triglycerides 135 Cholesterol 183 LDL Cholesterol Direct 131 H HDL Cholesterol 32 Alcohol, Quantitative < 10 Blood Type Antibody Screen BBK History Checked 07/25/17 07/26/17 07/26/17 21:02 04:20 04:20 WBC 9.4 RBC 4.47 Hgb 13.8 Hct 41.9 MCV 93.6 MCH 31.0 MCHC 33.1 RDW 14.2 Plt Count 139 MPV Neut % (Auto) Lymph % (Auto) [place] % (Auto) Eos % (Auto) Baso % (Auto) Neut # Lymph # Hinds # Eos # Baso # PT INR APTT 150.2 H* D Sodium Potassium Chloride Carbon Dioxide Anion Gap BUN Creatinine Est GFR ( Amer) Est GFR (Non-Af Amer) POC Glucose (mg/dL) Random Glucose Calcium Total Bilirubin AST ALT Alkaline Phosphatase Troponin I NT-Pro-B Natriuret Pep Total Protein Albumin Globulin Albumin/Globulin Ratio Triglycerides Cholesterol LDL Cholesterol Direct HDL Cholesterol Alcohol, Quantitative Blood Type A POSITIVE Antibody Screen Negative BBK History Checked Patient has bt 07/26/17 07/26/17 07/26/17 04:20 04:20 05:50 WBC RBC Hgb Hct MCV MCH MCHC RDW Plt Count MPV Neut % (Auto) Lymph % (Auto) [place] % (Auto) Eos % (Auto) Baso % (Auto) Neut # Lymph # [place] # Eos # Baso # PT INR APTT Sodium 140 Potassium 4.7 Chloride 105 Carbon Dioxide 26 Anion Gap 14 BUN 36 H Creatinine 1.6 H Est GFR ( Amer) 51 Est GFR (Non-Af Amer) 42 POC Glucose (mg/dL) 154 H Random Glucose 152 H Calcium 8.7 Total Bilirubin AST ALT Alkaline Phosphatase Troponin I < 0.0120 NT-Pro-B Natriuret Pep Total Protein Albumin Globulin Albumin/Globulin Ratio Triglycerides Cholesterol LDL Cholesterol Direct HDL Cholesterol Alcohol, Quantitative Blood Type Antibody Screen BBK History Checked Assessment & Plan (1) CVA (cerebral vascular accident) Status: Acute Priority: High (2) Pulmonary embolism Status: Acute Priority: High (3) COPD (chronic obstructive pulmonary disease) Status: Chronic Priority: High (4) DM2 (diabetes mellitus, type 2) Status: Chronic Priority: High - Assessment and Plan (Free Text) Plan: Patient has shown significant improvement neurologically since admission. Placed on unfractionated heparin because of suspected acute PE. Routine maintenance regimen for his COPD, no steroids. Pain control. Glucose control. Supplemental O2 (maintain SpO2 95+). Neurology consult, podiatry consult, cardiology consult. - Date & Time Date: 07/26/17 Time: 10:47
--- NOTE | 2017-07-26 12:16 | CARD ---
APPROVED REPORT EKG Measurement Heart [id number] <Conclusion> Atrial fibrillation Low voltage QRS Abnormal ECG
--- NOTE | 2017-07-26 14:10 | CP.PCM.CON ---
History of Present Illness - History of Present Illness History of Present Illness: Mr. Cruz is a 77-year-old man who is a former heavy cigarette smoker with a longstanding H/O COPD, atrial fibrillation, and states that he lives on the 5th floor and was taking the stairs up to his apartment. At the top of the stairs, he felt like his left arm and leg were numb. He felt strange and confused and fell down the stairs. He sustained multiple injuries with the fall including a fractured left ankle. He was brought to the ED and a code stroke was called for left sided weakness and an initial NIHSS of 8. CT scan of the head did not show any acute findings and CTA of the head/neck was negative for intracranial thombus, but was found to have a pulmonary embolism. He was started on heparin for treatment. MRI of the brain is pending, but today, he continues to have left sided numbness, but most of the weakness has resolved. He continues to have left facial droop and mild dysarthria, although his speech is easily understood. He complained of back and hip pain. He denied chest pain, but did complain of SOB. He did not have any other complaints at the time. Review of Systems - Review of Systems All systems: reviewed and no additional remarkable complaints except Past Patient History - Past Medical History & Family History Past Medical History?: Yes - Past Social History Smoking Status: Former Smoker - CARDIAC Hx Atrial Fibrillation: Yes Hx Hypertension: Yes - PULMONARY Hx Chronic Obstructive Pulmonary Disease (COPD): Yes - ENDOCRINE/METABOLIC Hx Diabetes Mellitus Type 2: Yes - HEMATOLOGICAL/ONCOLOGICAL Hx AIDS: No Hx Human Immunodeficiency Virus (HIV): No - MUSCULOSKELETAL/RHEUMATOLOGICAL Hx Falls: Yes - GASTROINTESTINAL Other/Comment: GI Bleed - PSYCHIATRIC Hx Substance Use: No - SURGICAL HISTORY Other/Comment: left hand - ANESTHESIA Hx Anesthesia: Yes Hx Anesthesia Reactions: No Hx Malignant Hyperthermia: No Has any member of the family had a problem w/ anesthesia?: No Meds Allergies/Adverse Reactions: Allergies Allergy/AdvReac Type Severity Reaction Status Date / Time No Known Allergies Allergy Verified 07/25/17 20:24 - Medications Medications: Current Medications Acetaminophen (Tylenol 325 Mg Supp) 325 mg OR Q6 PRN PRN Reason: Fever >100.4 F Acetaminophen (Tylenol 325mg Tab) 650 mg PO Q6 PRN PRN Reason: Pain, moderate (4-7) Last Admin: 07/26/17 12:52 Dose: 650 mg Albuterol Sulfate (Albuterol 0.083% Inhal Yesy (2.5 Mg/3 Ml) Ud) 2.5 mg INH RQ4 PRN PRN Reason: Shortness of Breath Albuterol/Ipratropium (Duoneb 3 Mg/0.5 Mg (3 Ml) Ud) 3 ml INH RQID MUNA Atorvastatin Calcium (Lipitor) 40 mg PO DAILY [facility] Heparin Sodium/Sodium Chloride (Heparin 12225 Units/250ml 1/2 Normal Saline) 25 ,000 units in 250 mls @ 18 mls/hr IV .[id number] [facility] PRN Reason: Protocol Last Titration: 07/26/17 08:00 Dose: 15 mls/hr Insulin Human Lispro (Humalog) 0 units SC Q6H MUNA PRN Reason: Protocol Last Admin: 07/26/17 12:49 Dose: 2 units Metoprolol Tartrate (Lopressor) 5 mg IVP Q6H PRN PRN Reason: For HR sustained > 120 Ondansetron HCl (Zofran Inj) 4 mg IVP Q6H PRN PRN Reason: Nausea/Vomiting Physical Exam - Constitutional Appears: Chronically Ill - Head Exam Head Exam: ATRAUMATIC, NORMAL INSPECTION, NORMOCEPHALIC - Eye Exam Eye Exam: EOMI, Normal appearance, PERRL - ENT Exam ENT Exam: Mucous Membranes Moist, Normal Exam - Neck Exam Neck exam: Positive for: Normal Inspection - Respiratory Exam Respiratory Exam: Prolonged Expiratory Phase, Wheezes - Cardiovascular Exam Cardiovascular Exam: Irregular Rhythm - GI/Abdominal Exam GI & Abdominal Exam: Normal Bowel Sounds, Soft. absent: Tenderness - Rectal Exam Rectal Exam: Deferred - Back Exam Back exam: vertebral tenderness - Neurological Exam Neurological exam: Abnormal Gait, Alert, CN II-XII Intact, Oriented x3 Additional comments: Sensation is decreased on the left side as compared with the right. Left upper extremity pronator drift. Left leg is 4/5 in strength as compared with the right. Left facial droop noted. Reflexes normal. Plantar response normal. NIHSS= 4 - Psychiatric Exam Psychiatric exam: Normal Affect, Normal Mood - Skin Skin Exam: Dry, Intact, Normal Color, Warm Results - Vital Signs Recent Vital Signs: Last Vital Signs Temp 99.2 F 07/26/17 12:52 Pulse 112 H 07/26/17 12:00 Resp 23 07/26/17 12:00 BP 169/84 H 07/26/17 12:00 Pulse Ox 97 07/26/17 12:00 - Labs Result Diagrams: 07/26/17 04:20 07/26/17 04:20 Labs: Laboratory Results - last 24 hr 07/25/17 07/25/17 07/25/17 21:02 21:02 21:02 WBC 11.5 H RBC 4.88 Hgb 15.1 Hct 45.4 MCV 93.1 MCH 31.0 MCHC 33.3 RDW 14.8 H Plt Count 180 MPV 8.4 Neut % (Auto) 75.5 H Lymph % (Auto) 16.2 L [place] % (Auto) 6.4 Eos % (Auto) 1.3 Baso % (Auto) 0.6 Neut # 8.7 H Lymph # 1.9 [place] # 0.7 Eos # 0.1 Baso # 0.1 PT 13.5 H INR 1.2 APTT 30.9 Sodium 138 Potassium 4.5 Chloride 103 Carbon Dioxide 27 Anion Gap 13 BUN 34 H Creatinine 1.9 H Est GFR ( Amer) 42 Est GFR (Non-Af Amer) 35 POC Glucose (mg/dL) Random Glucose 165 H Hemoglobin A1c Calcium 9.0 Total Bilirubin 1.7 H AST 25 ALT 35 Alkaline Phosphatase 74 Troponin I < 0.0120 NT-Pro-B Natriuret Pep 1710 H Total Protein 8.0 Albumin 4.2 Globulin 3.8 Albumin/Globulin Ratio 1.1 Triglycerides 135 Cholesterol 183 LDL Cholesterol Direct 131 H HDL Cholesterol 32 Alcohol, Quantitative < 10 Blood Type Antibody Screen BBK History Checked 07/25/17 07/25/17 07/26/17 21:02 21:06 04:20 WBC 9.4 RBC 4.47 Hgb 13.8 Hct 41.9 MCV 93.6 MCH 31.0 MCHC 33.1 RDW 14.2 Plt Count 139 MPV Neut % (Auto) Lymph % (Auto) [place] % (Auto) Eos % (Auto) Baso % (Auto) Neut # Lymph # [place] # Eos # Baso # PT INR APTT Sodium Potassium Chloride Carbon Dioxide Anion Gap BUN Creatinine Est GFR ( Amer) Est GFR (Non-Af Amer) POC Glucose (mg/dL) Random Glucose Hemoglobin A1c 5.9 Calcium Total Bilirubin AST ALT Alkaline Phosphatase Troponin I NT-Pro-B Natriuret Pep Total Protein Albumin Globulin Albumin/Globulin Ratio Triglycerides Cholesterol LDL Cholesterol Direct HDL Cholesterol Alcohol, Quantitative Blood Type A POSITIVE Antibody Screen Negative BBK History Checked Patient has bt 07/26/17 07/26/17 07/26/17 04:20 04:20 04:20 WBC RBC Hgb Hct MCV MCH MCHC RDW Plt Count MPV Neut % (Auto) Lymph % (Auto) [place] % (Auto) Eos % (Auto) Baso % (Auto) Neut # Lymph # [place] # Eos # Baso # PT INR APTT 150.2 H* D Sodium 140 Potassium 4.7 Chloride 105 Carbon Dioxide 26 Anion Gap 14 BUN 36 H Creatinine 1.6 H Est GFR ( Amer) 51 Est GFR (Non-Af Amer) 42 POC Glucose (mg/dL) Random Glucose 152 H Hemoglobin A1c Calcium 8.7 Total Bilirubin AST ALT Alkaline Phosphatase Troponin I < 0.0120 NT-Pro-B Natriuret Pep Total Protein Albumin Globulin Albumin/Globulin Ratio Triglycerides Cholesterol LDL Cholesterol Direct HDL Cholesterol Alcohol, Quantitative Blood Type Antibody Screen BBK History Checked 07/26/17 07/26/17 07/26/17 05:50 10:39 11:21 WBC RBC Hgb Hct MCV MCH MCHC RDW Plt Count MPV Neut % (Auto) Lymph % (Auto) [place] % (Auto) Eos % (Auto) Baso % (Auto) Neut # Lymph # [place] # Eos # Baso # PT INR APTT Sodium Potassium Chloride Carbon Dioxide Anion Gap BUN Creatinine Est GFR ( Amer) Est GFR (Non-Af Amer) POC Glucose (mg/dL) 154 H 187 H Random Glucose Hemoglobin A1c Calcium Total Bilirubin AST ALT Alkaline Phosphatase Troponin I < 0.0120 NT-Pro-B Natriuret Pep Total Protein Albumin Globulin Albumin/Globulin Ratio Triglycerides Cholesterol LDL Cholesterol Direct HDL Cholesterol Alcohol, Quantitative Blood Type Antibody Screen BBK History Checked - Imaging and Cardiology CT scan - head Status: Image reviewed by me, Report reviewed by me Assessment & Plan (1) CVA (cerebral vascular accident) Assessment and Plan: Likely secondary to atrial fibrillation and possible failure of Pradaxa. I recommend continuing heparin for the treatment of pulmonary embolism. Echocardiogram with bubble study is necessary to rule out PFO since he does have a PE and this could be a risk for stroke. Continue permissive hypertension for now, and consider using digoxin for rate control in the setting of atrial fibrillation. In addition to treating his injuries and underlying medical conditions, I recommend the followin. Telemetry 2. PT/OT eval and treatment 3. May start Eliquis 5 mg BID after heparin is stopped. 4. MRI of the brain and MRA of the head/neck 5. Fluids with NS at 100 mL/hr 6. Statin to maintain LDL<100 mg/dL Thank you. Status: Acute Priority: High
[2017-07-26 14:41] LABS: URINE BILIRUBIN NEGATIVE (NEGATIVE); URINE BLOOD NEGATIVE (NEGATIVE); URINE COLOR YELLOW (YELLOW); URINE GLUCOSE (UA) NEG (Normal); URINE KETONE NEGATIVE (NEGATIVE); URINE LEUKOCYTE ESTERASE NEG Leu/uL (Negative); URINE PROTEIN NEGATIVE (NEGATIVE); URINE UROBILINOGEN 0.2-1.0 mg/dL (0.2-1.0); WBC URINE < 1 /hpf (0-5)
[2017-07-26] MEDS: Albuterol-Ipratrop 3 mg / 0.5 (3 ml) UD INH SCH ×2 (15:01→19:20)
--- NOTE | 2017-07-26 15:32 | CP.PCM.CON ---
History of Present Illness - History of Present Illness History of Present Illness: 77 y/o w/m well known to me admitted after falling down a flight of stairs 2* to TIA sustaining a non displaced Fx of Left Lateral Maleolus on admission he had Left facial droop and left arm weakness/numbness/confusion Most of the Symptoms have resolved PMH: Atrial Fibrillation (on Pradaxa) COPD DM Type II DVT EKG: Atrial Fibrillation Troponin: neg Past Patient History - Past Medical History & Family History Past Medical History?: Yes - Past Social History Smoking Status: Former Smoker - CARDIAC Hx Atrial Fibrillation: Yes Hx Hypertension: Yes - PULMONARY Hx Chronic Obstructive Pulmonary Disease (COPD): Yes - ENDOCRINE/METABOLIC Hx Diabetes Mellitus Type 2: Yes - HEMATOLOGICAL/ONCOLOGICAL Hx AIDS: No Hx Human Immunodeficiency Virus (HIV): No - MUSCULOSKELETAL/RHEUMATOLOGICAL Hx Falls: Yes - GASTROINTESTINAL Other/Comment: GI Bleed - PSYCHIATRIC Hx Substance Use: No - SURGICAL HISTORY Other/Comment: left hand - ANESTHESIA Hx Anesthesia: Yes Hx Anesthesia Reactions: No Hx Malignant Hyperthermia: No Has any member of the family had a problem w/ anesthesia?: No Meds Allergies/Adverse Reactions: Allergies Allergy/AdvReac Type Severity Reaction Status Date / Time No Known Allergies Allergy Verified 07/25/17 20:24 - Medications Medications: Current Medications Acetaminophen (Tylenol 325 Mg Supp) 325 mg OR Q6 PRN PRN Reason: Fever >100.4 F Acetaminophen (Tylenol 325mg Tab) 650 mg PO Q6 PRN PRN Reason: Pain, moderate (4-7) Last Admin: 07/26/17 12:52 Dose: 650 mg Albuterol Sulfate (Albuterol 0.083% Inhal Yesy (2.5 Mg/3 Ml) Ud) 2.5 mg INH RQ4 PRN PRN Reason: Shortness of Breath Albuterol/Ipratropium (Duoneb 3 Mg/0.5 Mg (3 Ml) Ud) 3 ml INH RQID MUNA Last Admin: 07/26/17 15:01 Dose: Not Given Atorvastatin Calcium (Lipitor) 40 mg PO DAILY [facility] Heparin Sodium/Sodium Chloride (Heparin 18798 Units/250ml 1/2 Normal Saline) 25 ,000 units in 250 mls @ 18 mls/hr IV .[id number] MUNA PRN Reason: Protocol Last Titration: 07/26/17 08:00 Dose: 15 mls/hr Insulin Human Lispro (Humalog) 0 units SC Q6H MUNA PRN Reason: Protocol Last Admin: 07/26/17 12:49 Dose: 2 units Metoprolol Tartrate (Lopressor) 5 mg IVP Q6H PRN PRN Reason: For HR sustained > 120 Ondansetron HCl (Zofran Inj) 4 mg IVP Q6H PRN PRN Reason: Nausea/Vomiting Physical Exam - Constitutional Appears: Well - Respiratory Exam Respiratory Exam: Decreased Breath Sounds - Cardiovascular Exam Cardiovascular Exam: Irregular Rhythm Results - Vital Signs Recent Vital Signs: Last Vital Signs Temp 98.3 F 07/26/17 13:52 Pulse 117 H 07/26/17 13:59 Resp 15 07/26/17 13:59 BP 134/81 07/26/17 13:59 Pulse Ox 97 07/26/17 13:59 - Labs Result Diagrams: 07/26/17 04:20 07/26/17 04:20 Labs: Laboratory Results - last 24 hr 07/25/17 07/25/17 07/25/17 21:02 21:02 21:02 WBC 11.5 H RBC 4.88 Hgb 15.1 Hct 45.4 MCV 93.1 MCH 31.0 MCHC 33.3 RDW 14.8 H Plt Count 180 MPV 8.4 Neut % (Auto) 75.5 H Lymph % (Auto) 16.2 L [place] % (Auto) 6.4 Eos % (Auto) 1.3 Baso % (Auto) 0.6 Neut # 8.7 H Lymph # 1.9 [place] # 0.7 Eos # 0.1 Baso # 0.1 PT 13.5 H INR 1.2 APTT 30.9 Sodium 138 Potassium 4.5 Chloride 103 Carbon Dioxide 27 Anion Gap 13 BUN 34 H Creatinine 1.9 H Est GFR ( Amer) 42 Est GFR (Non-Af Amer) 35 POC Glucose (mg/dL) Random Glucose 165 H Hemoglobin A1c Calcium 9.0 Total Bilirubin 1.7 H AST 25 ALT 35 Alkaline Phosphatase 74 Troponin I < 0.0120 NT-Pro-B Natriuret Pep 1710 H Total Protein 8.0 Albumin 4.2 Globulin 3.8 Albumin/Globulin Ratio 1.1 Triglycerides 135 Cholesterol 183 LDL Cholesterol Direct 131 H HDL Cholesterol 32 Urine Color Urine Clarity Urine pH Ur Specific [place] Urine Protein Urine Glucose (UA) Urine Ketones Urine Blood Urine Nitrate Urine Bilirubin Urine Urobilinogen Ur Leukocyte Esterase Urine Microscopic WBC Ur Squamous Epith Cells Alcohol, Quantitative < 10 Blood Type Antibody Screen BBK History Checked 07/25/17 07/25/17 07/26/17 21:02 21:06 04:20 WBC 9.4 RBC 4.47 Hgb 13.8 Hct 41.9 MCV 93.6 MCH 31.0 MCHC 33.1 RDW 14.2 Plt Count 139 MPV Neut % (Auto) Lymph % (Auto) [place] % (Auto) Eos % (Auto) Baso % (Auto) Neut # Lymph # [place] # Eos # Baso # PT INR APTT Sodium Potassium Chloride Carbon Dioxide Anion Gap BUN Creatinine Est GFR ( Amer) Est GFR (Non-Af Amer) POC Glucose (mg/dL) Random Glucose Hemoglobin A1c 5.9 Calcium Total Bilirubin AST ALT Alkaline Phosphatase Troponin I NT-Pro-B Natriuret Pep Total Protein Albumin Globulin Albumin/Globulin Ratio Triglycerides Cholesterol LDL Cholesterol Direct HDL Cholesterol Urine Color Urine Clarity Urine pH Ur Specific [place] Urine Protein Urine Glucose (UA) Urine Ketones Urine Blood Urine Nitrate Urine Bilirubin Urine Urobilinogen Ur Leukocyte Esterase Urine Microscopic WBC Ur Squamous Epith Cells Alcohol, Quantitative Blood Type A POSITIVE Antibody Screen Negative BBK History Checked Patient has bt 07/26/17 07/26/17 07/26/17 04:20 04:20 04:20 WBC RBC Hgb Hct MCV MCH MCHC RDW Plt Count MPV Neut % (Auto) Lymph % (Auto) [place] % (Auto) Eos % (Auto) Baso % (Auto) Neut # Lymph # [place] # Eos # Baso # PT INR APTT 150.2 H* D Sodium 140 Potassium 4.7 Chloride 105 Carbon Dioxide 26 Anion Gap 14 BUN 36 H Creatinine 1.6 H Est GFR ( Amer) 51 Est GFR (Non-Af Amer) 42 POC Glucose (mg/dL) Random Glucose 152 H Hemoglobin A1c Calcium 8.7 Total Bilirubin AST ALT Alkaline Phosphatase Troponin I < 0.0120 NT-Pro-B Natriuret Pep Total Protein Albumin Globulin Albumin/Globulin Ratio Triglycerides Cholesterol LDL Cholesterol Direct HDL Cholesterol Urine Color Urine Clarity Urine pH Ur Specific [place] Urine Protein Urine Glucose (UA) Urine Ketones Urine Blood Urine Nitrate Urine Bilirubin Urine Urobilinogen Ur Leukocyte Esterase Urine Microscopic WBC Ur Squamous Epith Cells Alcohol, Quantitative Blood Type Antibody Screen BBK History Checked 07/26/17 07/26/17 07/26/17 05:50 10:39 11:21 WBC RBC Hgb Hct MCV MCH MCHC RDW Plt Count MPV Neut % (Auto) Lymph % (Auto) [place] % (Auto) Eos % (Auto) Baso % (Auto) Neut # Lymph # [place] # Eos # Baso # PT INR APTT Sodium Potassium Chloride Carbon Dioxide Anion Gap BUN Creatinine Est GFR ( Amer) Est GFR (Non-Af Amer) POC Glucose (mg/dL) 154 H 187 H Random Glucose Hemoglobin A1c Calcium Total Bilirubin AST ALT Alkaline Phosphatase Troponin I < 0.0120 NT-Pro-B Natriuret Pep Total Protein Albumin Globulin Albumin/Globulin Ratio Triglycerides Cholesterol LDL Cholesterol Direct HDL Cholesterol Urine Color Urine Clarity Urine pH Ur Specific [place] Urine Protein Urine Glucose (UA) Urine Ketones Urine Blood Urine Nitrate Urine Bilirubin Urine Urobilinogen Ur Leukocyte Esterase Urine Microscopic WBC Ur Squamous Epith Cells Alcohol, Quantitative Blood Type Antibody Screen BBK History Checked 07/26/17 11:39 WBC RBC Hgb Hct MCV MCH MCHC RDW Plt Count MPV Neut % (Auto) Lymph % (Auto) [place] % (Auto) Eos % (Auto) Baso % (Auto) Neut # Lymph # [place] # Eos # Baso # PT INR APTT Sodium Potassium Chloride Carbon Dioxide Anion Gap BUN Creatinine Est GFR ( Amer) Est GFR (Non-Af Amer) POC Glucose (mg/dL) Random Glucose Hemoglobin A1c Calcium Total Bilirubin AST ALT Alkaline Phosphatase Troponin I NT-Pro-B Natriuret Pep Total Protein Albumin Globulin Albumin/Globulin Ratio Triglycerides Cholesterol LDL Cholesterol Direct HDL Cholesterol Urine Color Yellow Urine Clarity Slighty-cloudy Urine pH 5.0 Ur Specific [place] 1.039 H Urine Protein Negative Urine Glucose (UA) Neg Urine Ketones Negative Urine Blood Negative Urine Nitrate Negative Urine Bilirubin Negative Urine Urobilinogen 0.2-1.0 Ur Leukocyte Esterase Neg Urine Microscopic WBC < 1 Ur Squamous Epith Cells < 1 Alcohol, Quantitative Blood Type Antibody Screen BBK History Checked Assessment & Plan (1) CVA (cerebral vascular accident) Status: Acute Priority: High (2) Left fibular fracture Status: Acute (3) COPD (chronic obstructive pulmonary disease) Status: Chronic Priority: High (4) DM2 (diabetes mellitus, type 2) Status: Chronic Priority: High - Assessment and Plan (Free Text) Assessment: Atrial Fibrillation
--- NOTE | 2017-07-26 15:47 | CP.CCUPN ---
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 ER eval noted with discovery of acute PTE, CVA, Left ankle fracture, and dehydration. Stated on IV Heparin drip, presently awake and responsive, denies any recurrent SOB nor chest discomfort at bed rest. 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 ALLERGIES: NKDA Home Meds: Albuterol, Budesonide, Pradaxa, Diltiazem 24H CD, Lasix, Zyrtec, Lopressor, Montelukast, Januvia, Tiptropium. ROS: No other pertinent negs or positives on 10+ system review. PMSFH: All Nursing and physician documentation reviewed to date; no new pertinent info noted relevant to current medical problems. CXR: elevated left HD ( chronic), no gross consolidation (my interp). IMPRESSION / MAJOR PROBLEMS NOW: 1. Acute CVA 2. H/o Chronic A fib on NOAC 3. H/o DVT with IVCF, also on NOAC 4. s/p Fall at home 5. SubAcute PTE: non-massive 6. h/o COPD 7. h/o DM II PLAN: 1. Unclear if true PTE event, remains on Heparin drip for now. 2. Venous Doppler US legs. 3. ECHO for RA/RV size and strain, Trops negative x 3. 4. Neuro eval reviewed: further vascular studies ordered. Statin therapy. Neuro recommends IV Acetaminophen prn for pain. 5. Keep normoglycemic. 6. Stable for tele bed monitoring. CCU Objective - Vital Signs / Intake & Output Vital Signs (Last 4 hours): Vital Signs Temp Pulse Resp BP Pulse Ox 07/26/17 13:59 117 H 15 134/81 97 07/26/17 13:52 98.3 F 117 H 15 134/81 07/26/17 12:52 99.2 F 07/26/17 12:00 98.2 F 112 H 23 169/84 H 97 Intake and Output (Last 8hrs): Intake & Output 07/26/17 07/26/17 07/26/17 06:59 14:59 22:59 Intake Total 100 Balance 100 Weight 210 lb 210 lb Intake: IV 100 - Physical Exam Head: Positive for: Atraumatic, Normocephalic Pupils: Positive for: PERRL Extroacular Muscles: Positive for: EOMI Conjunctiva: Positive for: Normal. Negative for: Icteric Mouth: Positive for: Moist Mucous Membranes Neck: Positive for: Normal Range of Motion. Negative for: JVD Respiratory/Chest: Positive for: Clear to Auscultation, Decreased Breath Sounds (left base). Negative for: Accessory Muscle Use, Wheezes Cardiovascular: Positive for: Irregular Rhythm. Negative for: Murmurs, Tachycardic, Bradycardic, Rub Abdomen: Positive for: Normal Bowel Sounds. Negative for: Tenderness, Distention, Mass/Organomegaly Lower Extremity: Positive for: Edema (trace), NORMAL PULSES. Negative for: CALF TENDERNESS, Cyanosis Skin: Positive for: Warm, Dry. Negative for: Rashes Psychiatric: Positive for: Alert, Oriented x 3, Normal Mood - Medications Active Medications: Active Medications Generic Name Dose Route Start Last Admin Trade Name Freq PRN Reason Stop Dose Admin Acetaminophen 325 mg 07/26/17 00:44 Tylenol 325 Mg Supp OR Q6 PRN Fever >100.4 F Acetaminophen 650 mg 07/26/17 12:40 07/26/17 12:52 Tylenol 325mg Tab PO 650 mg Q6 PRN Administration Pain, moderate (4-7) Albuterol Sulfate 2.5 mg 07/26/17 09:41 Albuterol 0.083% Inhal Yesy (2.5 Mg/3 Ml) Ud INH RQ4 PRN Shortness of Breath Albuterol/Ipratropium 3 ml 07/26/17 12:00 07/26/17 15:01 Duoneb 3 Mg/0.5 Mg (3 Ml) Ud INH Not Given RQID MUNA Atorvastatin Calcium 40 mg 07/26/17 22:00 Lipitor PO DAILY MUNA Heparin Sodium/Sodium Chloride 25,000 units in 250 mls @ 18 mls/hr 07/25/17 23 :45 07/26/17 08:00 Heparin 44999 Units/250ml 1/2 Normal Saline IV 15 mls/hr .[id number] MUNA Titration Protocol Insulin Human Lispro 0 units 07/26/17 01:45 07/26/17 12:49 Humalog SC 2 units Q6H MUNA Administration Protocol Metoprolol Tartrate 5 mg 07/26/17 00:29 Lopressor IVP Q6H PRN For HR sustained > 120 Ondansetron HCl 4 mg 07/26/17 00:07 Zofran Inj IVP Q6H PRN Nausea/Vomiting - Patient Studies Lab Studies: Lab Studies 07/26/17 07/26/17 07/26/17 Range/Units 11:39 11:21 10:39 WBC (4.8-10.8) K/uL RBC (4.40-5.90) Mil/uL Hgb (12.0-18.0) g/dL Hct (35.0-51.0) % MCV (80.0-94.0) fl MCH (27.0-31.0) pg MCHC (33.0-37.0) g/dL RDW (11.5-14.5) % Plt Count (130-400) K/uL MPV (7.2-11.7) fl Neut % (Auto) (50.0-75.0) % Lymph % (Auto) (20.0-40.0) % [place] % (Auto) (0.0-10.0) % Eos % (Auto) (0.0-4.0) % Baso % (Auto) (0.0-2.0) % Neut # (1.8-7.0) K/uL Lymph # (1.0-4.3) K/uL [place] # (0.0-0.8) K/uL Eos # (0.0-0.7) K/uL Baso # (0.0-0.2) K/uL PT (9.8-13.1) Seconds INR (0.9-1.2) APTT (25.6-37.1) Seconds Sodium (132-148) mmol/l Potassium (3.6-5.0) MMOL/L Chloride (98-107) mmol/L Carbon Dioxide (22-30) mmol/L Anion Gap (10-20) BUN (9-20) mg/dl Creatinine (0.8-1.5) mg/dl Est GFR ( Amer) Est GFR (Non-Af Amer) POC Glucose (mg/dL) 187 H (65-110) mg/dL Random Glucose (75-110) mg/dL Hemoglobin A1c (4.2-6.5) % Calcium (8.4-10.2) mg/dL Total Bilirubin (0.2-1.3) mg/dl AST (17-59) U/L ALT (21-72) U/L Alkaline Phosphatase (38-126) U/L Troponin I < 0.0120 (0.00-0.120) ng/mL NT-Pro-B Natriuret Pep (0-900) pg/ml Total Protein (6.3-8.2) G/DL Albumin (3.5-5.0) g/dL Globulin (2.2-3.9) gm/dL Albumin/Globulin Ratio (1.0-2.1) Triglycerides (0-149) mg/DL Cholesterol (0-199) mg/dL LDL Cholesterol Direct (0-129) mg/dL HDL Cholesterol (30-70) MG/DL Urine Color Yellow (YELLOW) Urine Clarity Slighty-cloudy (Clear) Urine pH 5.0 (5.0-8.0) Ur Specific [place] 1.039 H (1.003-1.030) Urine Protein Negative (NEGATIVE) mg/dL Urine Glucose (UA) Neg (Normal) mg/dL Urine Ketones Negative (NEGATIVE) mg/dL Urine Blood Negative (NEGATIVE) Urine Nitrate Negative (NEGATIVE) Urine Bilirubin Negative (NEGATIVE) Urine Urobilinogen 0.2-1.0 (0.2-1.0) mg/dL Ur Leukocyte Esterase Neg (Negative) [place]eb[place]/uL Urine Microscopic WBC < 1 (0-5) /hpf Ur Squamous Epith Cells < 1 (0-5) /hpf Alcohol, Quantitative (0-10) mg/dl Blood Type Antibody Screen BBK History Checked 07/26/17 07/26/17 07/26/17 Range/Units 05:50 04:20 04:20 WBC (4.8-10.8) K/uL RBC (4.40-5.90) Mil/uL Hgb (12.0-18.0) g/dL Hct (35.0-51.0) % MCV (80.0-94.0) fl MCH (27.0-31.0) pg MCHC (33.0-37.0) g/dL RDW (11.5-14.5) % Plt Count (130-400) K/uL MPV (7.2-11.7) fl Neut % (Auto) (50.0-75.0) % Lymph % (Auto) (20.0-40.0) % [place] % (Auto) (0.0-10.0) % Eos % (Auto) (0.0-4.0) % Baso % (Auto) (0.0-2.0) % Neut # (1.8-7.0) K/uL Lymph # (1.0-4.3) K/uL [place] # (0.0-0.8) K/uL Eos # (0.0-0.7) K/uL Baso # (0.0-0.2) K/uL PT (9.8-13.1) Seconds INR (0.9-1.2) APTT (25.6-37.1) Seconds Sodium 140 (132-148) mmol/l Potassium 4.7 (3.6-5.0) MMOL/L Chloride 105 (98-107) mmol/L Carbon Dioxide 26 (22-30) mmol/L Anion Gap 14 (10-20) BUN 36 H (9-20) mg/dl Creatinine 1.6 H (0.8-1.5) mg/dl Est GFR ( Amer) 51 Est GFR (Non-Af Amer) 42 POC Glucose (mg/dL) 154 H (65-110) mg/dL Random Glucose 152 H (75-110) mg/dL Hemoglobin A1c (4.2-6.5) % Calcium 8.7 (8.4-10.2) mg/dL Total Bilirubin (0.2-1.3) mg/dl AST (17-59) U/L ALT (21-72) U/L Alkaline Phosphatase (38-126) U/L Troponin I < 0.0120 (0.00-0.120) ng/mL NT-Pro-B Natriuret Pep (0-900) pg/ml Total Protein (6.3-8.2) G/DL Albumin (3.5-5.0) g/dL Globulin (2.2-3.9) gm/dL Albumin/Globulin Ratio (1.0-2.1) Triglycerides (0-149) mg/DL Cholesterol (0-199) mg/dL LDL Cholesterol Direct (0-129) mg/dL HDL Cholesterol (30-70) MG/DL Urine Color (YELLOW) Urine Clarity (Clear) Urine pH (5.0-8.0) Ur Specific [place] (1.003-1.030) Urine Protein (NEGATIVE) mg/dL Urine Glucose (UA) (Normal) mg/dL Urine Ketones (NEGATIVE) mg/dL Urine Blood (NEGATIVE) Urine Nitrate (NEGATIVE) Urine Bilirubin (NEGATIVE) Urine Urobilinogen (0.2-1.0) mg/dL Ur Leukocyte Esterase (Negative) Bebeto/uL Urine Microscopic WBC (0-5) /hpf Ur Squamous Epith Cells (0-5) /hpf Alcohol, Quantitative (0-10) mg/dl Blood Type Antibody Screen BBK History Checked 07/26/17 07/26/17 07/25/17 Range/Units 04:20 04:20 21:06 WBC 9.4 (4.8-10.8) K/uL RBC 4.47 (4.40-5.90) Mil/uL Hgb 13.8 (12.0-18.0) g/dL Hct 41.9 (35.0-51.0) % MCV 93.6 (80.0-94.0) fl MCH 31.0 (27.0-31.0) pg MCHC 33.1 (33.0-37.0) g/dL RDW 14.2 (11.5-14.5) % Plt Count 139 (130-400) K/uL MPV (7.2-11.7) fl Neut % (Auto) (50.0-75.0) % Lymph % (Auto) (20.0-40.0) % [place] % (Auto) (0.0-10.0) % Eos % (Auto) (0.0-4.0) % Baso % (Auto) (0.0-2.0) % Neut # (1.8-7.0) K/uL Lymph # (1.0-4.3) K/uL [place] # (0.0-0.8) K/uL Eos # (0.0-0.7) K/uL Baso # (0.0-0.2) K/uL PT (9.8-13.1) Seconds INR (0.9-1.2) APTT 150.2 H* D (25.6-37.1) Seconds Sodium (132-148) mmol/l Potassium (3.6-5.0) MMOL/L Chloride (98-107) mmol/L Carbon Dioxide (22-30) mmol/L Anion Gap (10-20) BUN (9-20) mg/dl Creatinine (0.8-1.5) mg/dl Est GFR ( Amer) Est GFR (Non-Af Amer) POC Glucose (mg/dL) (65-110) mg/dL Random Glucose (75-110) mg/dL Hemoglobin A1c 5.9 (4.2-6.5) % Calcium (8.4-10.2) mg/dL Total Bilirubin (0.2-1.3) mg/dl AST (17-59) U/L ALT (21-72) U/L Alkaline Phosphatase (38-126) U/L Troponin I (0.00-0.120) ng/mL NT-Pro-B Natriuret Pep (0-900) pg/ml Total Protein (6.3-8.2) G/DL Albumin (3.5-5.0) g/dL Globulin (2.2-3.9) gm/dL Albumin/Globulin Ratio (1.0-2.1) Triglycerides (0-149) mg/DL Cholesterol (0-199) mg/dL LDL Cholesterol Direct (0-129) mg/dL HDL Cholesterol (30-70) MG/DL Urine Color (YELLOW) Urine Clarity (Clear) Urine pH (5.0-8.0) Ur Specific [place] (1.003-1.030) Urine Protein (NEGATIVE) mg/dL Urine Glucose (UA) (Normal) mg/dL Urine Ketones (NEGATIVE) mg/dL Urine Blood (NEGATIVE) Urine Nitrate (NEGATIVE) Urine Bilirubin (NEGATIVE) Urine Urobilinogen (0.2-1.0) mg/dL Ur Leukocyte Esterase (Negative) Bebeto/uL Urine Microscopic WBC (0-5) /hpf Ur Squamous Epith Cells (0-5) /hpf Alcohol, Quantitative (0-10) mg/dl Blood Type Antibody Screen BBK History Checked 07/25/17 07/25/17 07/25/17 Range/Units 21:02 21:02 21:02 WBC (4.8-10.8) K/uL RBC (4.40-5.90) Mil/uL Hgb (12.0-18.0) g/dL Hct (35.0-51.0) % MCV (80.0-94.0) fl MCH (27.0-31.0) pg MCHC (33.0-37.0) g/dL RDW (11.5-14.5) % Plt Count (130-400) K/uL MPV (7.2-11.7) fl Neut % (Auto) (50.0-75.0) % Lymph % (Auto) (20.0-40.0) % [place] % (Auto) (0.0-10.0) % Eos % (Auto) (0.0-4.0) % Baso % (Auto) (0.0-2.0) % Neut # (1.8-7.0) K/uL Lymph # (1.0-4.3) K/uL [place] # (0.0-0.8) K/uL Eos # (0.0-0.7) K/uL Baso # (0.0-0.2) K/uL PT 13.5 H (9.8-13.1) Seconds INR 1.2 (0.9-1.2) APTT 30.9 (25.6-37.1) Seconds Sodium 138 (132-148) mmol/l Potassium 4.5 (3.6-5.0) MMOL/L Chloride 103 (98-107) mmol/L Carbon Dioxide 27 (22-30) mmol/L Anion Gap 13 (10-20) BUN 34 H (9-20) mg/dl Creatinine 1.9 H (0.8-1.5) mg/dl Est GFR ( Amer) 42 Est GFR (Non-Af Amer) 35 POC Glucose (mg/dL) (65-110) mg/dL Random Glucose 165 H (75-110) mg/dL Hemoglobin A1c (4.2-6.5) % Calcium 9.0 (8.4-10.2) mg/dL Total Bilirubin 1.7 H (0.2-1.3) mg/dl AST 25 (17-59) U/L ALT 35 (21-72) U/L Alkaline Phosphatase 74 (38-126) U/L Troponin I < 0.0120 (0.00-0.120) ng/mL NT-Pro-B Natriuret Pep 1710 H (0-900) pg/ml Total Protein 8.0 (6.3-8.2) G/DL Albumin 4.2 (3.5-5.0) g/dL Globulin 3.8 (2.2-3.9) gm/dL Albumin/Globulin Ratio 1.1 (1.0-2.1) Triglycerides 135 (0-149) mg/DL Cholesterol 183 (0-199) mg/dL LDL Cholesterol Direct 131 H (0-129) mg/dL HDL Cholesterol 32 (30-70) MG/DL Urine Color (YELLOW) Urine Clarity (Clear) Urine pH (5.0-8.0) Ur Specific [place] (1.003-1.030) Urine Protein (NEGATIVE) mg/dL Urine Glucose (UA) (Normal) mg/dL Urine Ketones (NEGATIVE) mg/dL Urine Blood (NEGATIVE) Urine Nitrate (NEGATIVE) Urine Bilirubin (NEGATIVE) Urine Urobilinogen (0.2-1.0) mg/dL Ur Leukocyte Esterase (Negative) Bebeto/uL Urine Microscopic WBC (0-5) /hpf Ur Squamous Epith Cells (0-5) /hpf Alcohol, Quantitative < 10 (0-10) mg/dl Blood Type A POSITIVE Antibody Screen Negative BBK History Checked Patient has bt 07/25/17 Range/Units 21:02 WBC 11.5 H (4.8-10.8) K/uL RBC 4.88 (4.40-5.90) Mil/uL Hgb 15.1 (12.0-18.0) g/dL Hct 45.4 (35.0-51.0) % MCV 93.1 (80.0-94.0) fl MCH 31.0 (27.0-31.0) pg MCHC 33.3 (33.0-37.0) g/dL RDW 14.8 H (11.5-14.5) % Plt Count 180 (130-400) K/uL MPV 8.4 (7.2-11.7) fl Neut % (Auto) 75.5 H (50.0-75.0) % Lymph % (Auto) 16.2 L (20.0-40.0) % [place] % (Auto) 6.4 (0.0-10.0) % Eos % (Auto) 1.3 (0.0-4.0) % Baso % (Auto) 0.6 (0.0-2.0) % Neut # 8.7 H (1.8-7.0) K/uL Lymph # 1.9 (1.0-4.3) K/uL [place] # 0.7 (0.0-0.8) K/uL Eos # 0.1 (0.0-0.7) K/uL Baso # 0.1 (0.0-0.2) K/uL PT (9.8-13.1) Seconds INR (0.9-1.2) APTT (25.6-37.1) Seconds Sodium (132-148) mmol/l Potassium (3.6-5.0) MMOL/L Chloride (98-107) mmol/L Carbon Dioxide (22-30) mmol/L Anion Gap (10-20) BUN (9-20) mg/dl Creatinine (0.8-1.5) mg/dl Est GFR ( Amer) Est GFR (Non-Af Amer) POC Glucose (mg/dL) (65-110) mg/dL Random Glucose (75-110) mg/dL Hemoglobin A1c (4.2-6.5) % Calcium (8.4-10.2) mg/dL Total Bilirubin (0.2-1.3) mg/dl AST (17-59) U/L ALT (21-72) U/L Alkaline Phosphatase (38-126) U/L Troponin I (0.00-0.120) ng/mL NT-Pro-B Natriuret Pep (0-900) pg/ml Total Protein (6.3-8.2) G/DL Albumin (3.5-5.0) g/dL Globulin (2.2-3.9) gm/dL Albumin/Globulin Ratio (1.0-2.1) Triglycerides (0-149) mg/DL Cholesterol (0-199) mg/dL LDL Cholesterol Direct (0-129) mg/dL HDL Cholesterol (30-70) MG/DL Urine Color (YELLOW) Urine Clarity (Clear) Urine pH (5.0-8.0) Ur Specific [place] (1.003-1.030) Urine Protein (NEGATIVE) mg/dL Urine Glucose (UA) (Normal) mg/dL Urine Ketones (NEGATIVE) mg/dL Urine Blood (NEGATIVE) Urine Nitrate (NEGATIVE) Urine Bilirubin (NEGATIVE) Urine Urobilinogen (0.2-1.0) mg/dL Ur Leukocyte Esterase (Negative) Bebeto/uL Urine Microscopic WBC (0-5) /hpf Ur Squamous Epith Cells (0-5) /hpf Alcohol, Quantitative (0-10) mg/dl Blood Type Antibody Screen BBK History Checked Laboratory Results - last 24 hr 07/25/17 07/25/17 07/25/17 21:02 21:02 21:02 WBC 11.5 H RBC 4.88 Hgb 15.1 Hct 45.4 MCV 93.1 MCH 31.0 MCHC 33.3 RDW 14.8 H Plt Count 180 MPV 8.4 Neut % (Auto) 75.5 H Lymph % (Auto) 16.2 L [place] % (Auto) 6.4 Eos % (Auto) 1.3 Baso % (Auto) 0.6 Neut # 8.7 H Lymph # 1.9 [place] # 0.7 Eos # 0.1 Baso # 0.1 PT 13.5 H INR 1.2 APTT 30.9 Sodium 138 Potassium 4.5 Chloride 103 Carbon Dioxide 27 Anion Gap 13 BUN 34 H Creatinine 1.9 H Est GFR ( Amer) 42 Est GFR (Non-Af Amer) 35 POC Glucose (mg/dL) Random Glucose 165 H Hemoglobin A1c Calcium 9.0 Total Bilirubin 1.7 H AST 25 ALT 35 Alkaline Phosphatase 74 Troponin I < 0.0120 NT-Pro-B Natriuret Pep 1710 H Total Protein 8.0 Albumin 4.2 Globulin 3.8 Albumin/Globulin Ratio 1.1 Triglycerides 135 Cholesterol 183 LDL Cholesterol Direct 131 H HDL Cholesterol 32 Urine Color Urine Clarity Urine pH Ur Specific [place] Urine Protein Urine Glucose (UA) Urine Ketones Urine Blood Urine Nitrate Urine Bilirubin Urine Urobilinogen Ur Leukocyte Esterase Urine Microscopic WBC Ur Squamous Epith Cells Alcohol, Quantitative < 10 Blood Type Antibody Screen BBK History Checked 07/25/17 07/25/17 07/26/17 21:02 21:06 04:20 WBC 9.4 RBC 4.47 Hgb 13.8 Hct 41.9 MCV 93.6 MCH 31.0 MCHC 33.1 RDW 14.2 Plt Count 139 MPV Neut % (Auto) Lymph % (Auto) [place] % (Auto) Eos % (Auto) Baso % (Auto) Neut # Lymph # [place] # Eos # Baso # PT INR APTT Sodium Potassium Chloride Carbon Dioxide Anion Gap BUN Creatinine Est GFR ( Amer) Est GFR (Non-Af Amer) POC Glucose (mg/dL) Random Glucose Hemoglobin A1c 5.9 Calcium Total Bilirubin AST ALT Alkaline Phosphatase Troponin I NT-Pro-B Natriuret Pep Total Protein Albumin Globulin Albumin/Globulin Ratio Triglycerides Cholesterol LDL Cholesterol Direct HDL Cholesterol Urine Color Urine Clarity Urine pH Ur Specific [place] Urine Protein Urine Glucose (UA) Urine Ketones Urine Blood Urine Nitrate Urine Bilirubin Urine Urobilinogen Ur Leukocyte Esterase Urine Microscopic WBC Ur Squamous Epith Cells Alcohol, Quantitative Blood Type A POSITIVE Antibody Screen Negative BBK History Checked Patient has bt 07/26/17 07/26/17 07/26/17 04:20 04:20 04:20 WBC RBC Hgb Hct MCV MCH MCHC RDW Plt Count MPV Neut % (Auto) Lymph % (Auto) [place] % (Auto) Eos % (Auto) Baso % (Auto) Neut # Lymph # [place] # Eos # Baso # PT INR APTT 150.2 H* D Sodium 140 Potassium 4.7 Chloride 105 Carbon Dioxide 26 Anion Gap 14 BUN 36 H Creatinine 1.6 H Est GFR ( Amer) 51 Est GFR (Non-Af Amer) 42 POC Glucose (mg/dL) Random Glucose 152 H Hemoglobin A1c Calcium 8.7 Total Bilirubin AST ALT Alkaline Phosphatase Troponin I < 0.0120 NT-Pro-B Natriuret Pep Total Protein Albumin Globulin Albumin/Globulin Ratio Triglycerides Cholesterol LDL Cholesterol Direct HDL Cholesterol Urine Color Urine Clarity Urine pH Ur Specific [place] Urine Protein Urine Glucose (UA) Urine Ketones Urine Blood Urine Nitrate Urine Bilirubin Urine Urobilinogen Ur Leukocyte Esterase Urine Microscopic WBC Ur Squamous Epith Cells Alcohol, Quantitative Blood Type Antibody Screen BBK History Checked 07/26/17 07/26/17 07/26/17 05:50 10:39 11:21 WBC RBC Hgb Hct MCV MCH MCHC RDW Plt Count MPV Neut % (Auto) Lymph % (Auto) [place] % (Auto) Eos % (Auto) Baso % (Auto) Neut # Lymph # [place] # Eos # Baso # PT INR APTT Sodium Potassium Chloride Carbon Dioxide Anion Gap BUN Creatinine Est GFR ( Amer) Est GFR (Non-Af Amer) POC Glucose (mg/dL) 154 H 187 H Random Glucose Hemoglobin A1c Calcium Total Bilirubin AST ALT Alkaline Phosphatase Troponin I < 0.0120 NT-Pro-B Natriuret Pep Total Protein Albumin Globulin Albumin/Globulin Ratio Triglycerides Cholesterol LDL Cholesterol Direct HDL Cholesterol Urine Color Urine Clarity Urine pH Ur Specific [place] Urine Protein Urine Glucose (UA) Urine Ketones Urine Blood Urine Nitrate Urine Bilirubin Urine Urobilinogen Ur Leukocyte Esterase Urine Microscopic WBC Ur Squamous Epith Cells Alcohol, Quantitative Blood Type Antibody Screen BBK History Checked 07/26/17 11:39 WBC RBC Hgb Hct MCV MCH MCHC RDW Plt Count MPV Neut % (Auto) Lymph % (Auto) [place] % (Auto) Eos % (Auto) Baso % (Auto) Neut # Lymph # [place] # Eos # Baso # PT INR APTT Sodium Potassium Chloride Carbon Dioxide Anion Gap BUN Creatinine Est GFR ( Amer) Est GFR (Non-Af Amer) POC Glucose (mg/dL) Random Glucose Hemoglobin A1c Calcium Total Bilirubin AST ALT Alkaline Phosphatase Troponin I NT-Pro-B Natriuret Pep Total Protein Albumin Globulin Albumin/Globulin Ratio Triglycerides Cholesterol LDL Cholesterol Direct HDL Cholesterol Urine Color Yellow Urine Clarity Slighty-cloudy Urine pH 5.0 Ur Specific [place] 1.039 H Urine Protein Negative Urine Glucose (UA) Neg Urine Ketones Negative Urine Blood Negative Urine Nitrate Negative Urine Bilirubin Negative Urine Urobilinogen 0.2-1.0 Ur Leukocyte Esterase Neg Urine Microscopic WBC < 1 Ur Squamous Epith Cells < 1 Alcohol, Quantitative Blood Type Antibody Screen BBK History Checked Radiology Interpretations (Free Text): see above Fingerstick Blood Sugar Results: 187 Review of Systems - Review of Systems All systems: reviewed and no additional remarkable complaints except (see above) Critical Care Progress Note - Nutrition Nutrition: Nutrition Category Date Time Status Heart Healthy Diet [DIET] Diets 07/26/17 Lunch Active
--- NOTE | 2017-07-26 16:45 | CP.PCM.CON ---
History of Present Illness - History of Present Illness History of Present Illness: Podiatry Consult Note- Dr. Roche 77 y.o male with PMH of COPD, DM2, A fib, history of PE/DVT was seen in the ICU for left ankle fracture sustained secondary to trauma/falling steps of stair. Patient is seen resting comfortably at bedside, accompanied by his two daughters and a family friend. Patient is in NAD, AAOx3. Patient reports that he does not feel any left foot or ankle pain at the moment. He rates the pain 0/ 10 to the left lower extremity on VAS scale. However he does report hip pain, which made it difficult for him to sleep last night. He denies numbness or tingling to the left ankle or foot. Patient reports some shortness of breath. He denies chest pain, chills, fever, diarrhea, vomiting, nausea. Welcome Wagon Host/Hostess: Dr. Roche PMH:COPD, DM2, A fib, history of DVT/PE PSH: none SH: former heavy smoker, denies elicit drug use FH: noncontributory ALL: NKDA MEDS: see medication list Past Patient History - Past Medical History & Family History Past Medical History?: Yes - Past Social History Smoking Status: Former Smoker - CARDIAC Hx Atrial Fibrillation: Yes Hx Hypertension: Yes - PULMONARY Hx Chronic Obstructive Pulmonary Disease (COPD): Yes - ENDOCRINE/METABOLIC Hx Diabetes Mellitus Type 2: Yes - HEMATOLOGICAL/ONCOLOGICAL Hx AIDS: No Hx Human Immunodeficiency Virus (HIV): No - MUSCULOSKELETAL/RHEUMATOLOGICAL Hx Falls: Yes - GASTROINTESTINAL Other/Comment: GI Bleed - PSYCHIATRIC Hx Substance Use: No - SURGICAL HISTORY Other/Comment: left hand - ANESTHESIA Hx Anesthesia: Yes Hx Anesthesia Reactions: No Hx Malignant Hyperthermia: No Has any member of the family had a problem w/ anesthesia?: No Meds Allergies/Adverse Reactions: Allergies Allergy/AdvReac Type Severity Reaction Status Date / Time No Known Allergies Allergy Verified 07/25/17 20:24 - Medications Medications: Current Medications Acetaminophen (Tylenol 325 Mg Supp) 325 mg [place] Q6 PRN PRN Reason: Fever >100.4 F Acetaminophen (Tylenol 325mg Tab) 650 mg PO Q6 PRN PRN Reason: Pain, moderate (4-7) Last Admin: 07/26/17 12:52 Dose: 650 mg Albuterol Sulfate (Albuterol 0.083% Inhal Yesy (2.5 Mg/3 Ml) Ud) 2.5 mg INH RQ4 PRN PRN Reason: Shortness of Breath Albuterol/Ipratropium (Duoneb 3 Mg/0.5 Mg (3 Ml) Ud) 3 ml INH RQID [facility] Last Admin: 07/26/17 15:01 Dose: Not Given Atorvastatin Calcium (Lipitor) 40 mg PO DAILY [facility] Heparin Sodium/Sodium Chloride (Heparin 28055 Units/250ml 1/2 Normal Saline) 25 ,000 units in 250 mls @ 18 mls/hr IV .[id number] [facility] PRN Reason: Protocol Last Titration: 07/26/17 08:00 Dose: 15 mls/hr Insulin Human Lispro (Humalog) 0 units SC Q6H [facility] PRN Reason: Protocol Last Admin: 07/26/17 12:49 Dose: 2 units Metoprolol Tartrate (Lopressor) 5 mg IVP Q6H PRN PRN Reason: For HR sustained > 120 Ondansetron HCl (Zofran Inj) 4 mg IVP Q6H PRN PRN Reason: Nausea/Vomiting Physical Exam - Constitutional Appears: Well, Non-toxic, No Acute Distress - Extremities Exam Additional comments: Vasc: DP and PT 1/4 bilaterally, CFT < 3 seconds x10 digits, temperature gradient from knees to distal toes wnl, localized nonpitting edema to the left ankle, trace edema noted to the LE Ortho: moderate pain with palpation to the lateral malleolus, MM is 3/5 in all four compartments of dorsiflexion, plantarflexion, inversion, eversion, negative calf tenderness Neuro: gross and protective sensation intact Derm: no open lesions, no ecchymosis appreciated, no clinical signs of infection - Psychiatric Exam Psychiatric exam: Normal Affect, Normal Mood Results - Vital Signs Recent Vital Signs: Last Vital Signs Temp 98.3 F 07/26/17 13:52 Pulse 117 H 07/26/17 13:59 Resp 15 07/26/17 13:59 BP 134/81 07/26/17 13:59 Pulse Ox 97 07/26/17 13:59 - Labs Result Diagrams: 07/26/17 04:20 07/26/17 04:20 Labs: Laboratory Results - last 24 hr 07/25/17 07/25/17 07/25/17 21:02 21:02 21:02 WBC 11.5 H RBC 4.88 Hgb 15.1 Hct 45.4 MCV 93.1 MCH 31.0 MCHC 33.3 RDW 14.8 H Plt Count 180 MPV 8.4 Neut % (Auto) 75.5 H Lymph % (Auto) 16.2 L Grant % (Auto) 6.4 Eos % (Auto) 1.3 Baso % (Auto) 0.6 Neut # 8.7 H Lymph # 1.9 Grant # 0.7 Eos # 0.1 Baso # 0.1 PT 13.5 H INR 1.2 APTT 30.9 Sodium 138 Potassium 4.5 Chloride 103 Carbon Dioxide 27 Anion Gap 13 BUN 34 H Creatinine 1.9 H Est GFR ( Amer) 42 Est GFR (Non-Af Amer) 35 POC Glucose (mg/dL) Random Glucose 165 H Hemoglobin A1c Calcium 9.0 Total Bilirubin 1.7 H AST 25 ALT 35 Alkaline Phosphatase 74 Troponin I < 0.0120 NT-Pro-B Natriuret Pep 1710 H Total Protein 8.0 Albumin 4.2 Globulin 3.8 Albumin/Globulin Ratio 1.1 Triglycerides 135 Cholesterol 183 LDL Cholesterol Direct 131 H HDL Cholesterol 32 Urine Color Urine Clarity Urine pH Ur Specific [place] Urine Protein Urine Glucose (UA) Urine Ketones Urine Blood Urine Nitrate Urine Bilirubin Urine Urobilinogen Ur Leukocyte Esterase Urine Microscopic WBC Ur Squamous Epith Cells Alcohol, Quantitative < 10 Blood Type Antibody Screen BBK History Checked 07/25/17 07/25/17 07/26/17 21:02 21:06 04:20 WBC 9.4 RBC 4.47 Hgb 13.8 Hct 41.9 MCV 93.6 MCH 31.0 MCHC 33.1 RDW 14.2 Plt Count 139 MPV Neut % (Auto) Lymph % (Auto) Grant % (Auto) Eos % (Auto) Baso % (Auto) Neut # Lymph # Grant # Eos # Baso # PT INR APTT Sodium Potassium Chloride Carbon Dioxide Anion Gap BUN Creatinine Est GFR ( Amer) Est GFR (Non-Af Amer) POC Glucose (mg/dL) Random Glucose Hemoglobin A1c 5.9 Calcium Total Bilirubin AST ALT Alkaline Phosphatase Troponin I NT-Pro-B Natriuret Pep Total Protein Albumin Globulin Albumin/Globulin Ratio Triglycerides Cholesterol LDL Cholesterol Direct HDL Cholesterol Urine Color Urine Clarity Urine pH Ur Specific [place] Urine Protein Urine Glucose (UA) Urine Ketones Urine Blood Urine Nitrate Urine Bilirubin Urine Urobilinogen Ur Leukocyte Esterase Urine Microscopic WBC Ur Squamous Epith Cells Alcohol, Quantitative Blood Type A POSITIVE Antibody Screen Negative BBK History Checked Patient has bt 07/26/17 07/26/17 07/26/17 04:20 04:20 04:20 WBC RBC Hgb Hct MCV MCH MCHC RDW Plt Count MPV Neut % (Auto) Lymph % (Auto) Grant % (Auto) Eos % (Auto) Baso % (Auto) Neut # Lymph # Grant # Eos # Baso # PT INR APTT 150.2 H* D Sodium 140 Potassium 4.7 Chloride 105 Carbon Dioxide 26 Anion Gap 14 BUN 36 H Creatinine 1.6 H Est GFR ( Amer) 51 Est GFR (Non-Af Amer) 42 POC Glucose (mg/dL) Random Glucose 152 H Hemoglobin A1c Calcium 8.7 Total Bilirubin AST ALT Alkaline Phosphatase Troponin I < 0.0120 NT-Pro-B Natriuret Pep Total Protein Albumin Globulin Albumin/Globulin Ratio Triglycerides Cholesterol LDL Cholesterol Direct HDL Cholesterol Urine Color Urine Clarity Urine pH Ur Specific [place] Urine Protein Urine Glucose (UA) Urine Ketones Urine Blood Urine Nitrate Urine Bilirubin Urine Urobilinogen Ur Leukocyte Esterase Urine Microscopic WBC Ur Squamous Epith Cells Alcohol, Quantitative Blood Type Antibody Screen BBK History Checked 07/26/17 07/26/17 07/26/17 05:50 10:39 11:21 WBC RBC Hgb Hct MCV MCH MCHC RDW Plt Count MPV Neut % (Auto) Lymph % (Auto) Grant % (Auto) Eos % (Auto) Baso % (Auto) Neut # Lymph # Grant # Eos # Baso # PT INR APTT Sodium Potassium Chloride Carbon Dioxide Anion Gap BUN Creatinine Est GFR ( Amer) Est GFR (Non-Af Amer) POC Glucose (mg/dL) 154 H 187 H Random Glucose Hemoglobin A1c Calcium Total Bilirubin AST ALT Alkaline Phosphatase Troponin I < 0.0120 NT-Pro-B Natriuret Pep Total Protein Albumin Globulin Albumin/Globulin Ratio Triglycerides Cholesterol LDL Cholesterol Direct HDL Cholesterol Urine Color Urine Clarity Urine pH Ur Specific [place] Urine Protein Urine Glucose (UA) Urine Ketones Urine Blood Urine Nitrate Urine Bilirubin Urine Urobilinogen Ur Leukocyte Esterase Urine Microscopic WBC Ur Squamous Epith Cells Alcohol, Quantitative Blood Type Antibody Screen BBK History Checked 07/26/17 11:39 WBC RBC Hgb Hct MCV MCH MCHC RDW Plt Count MPV Neut % (Auto) Lymph % (Auto) Grant % (Auto) Eos % (Auto) Baso % (Auto) Neut # Lymph # Grant # Eos # Baso # PT INR APTT Sodium Potassium Chloride Carbon Dioxide Anion Gap BUN Creatinine Est GFR ( Amer) Est GFR (Non-Af Amer) POC Glucose (mg/dL) Random Glucose Hemoglobin A1c Calcium Total Bilirubin AST ALT Alkaline Phosphatase Troponin I NT-Pro-B Natriuret Pep Total Protein Albumin Globulin Albumin/Globulin Ratio Triglycerides Cholesterol LDL Cholesterol Direct HDL Cholesterol Urine Color Yellow Urine Clarity Slighty-cloudy Urine pH 5.0 Ur Specific [place] 1.039 H Urine Protein Negative Urine Glucose (UA) Neg Urine Ketones Negative Urine Blood Negative Urine Nitrate Negative Urine Bilirubin Negative Urine Urobilinogen 0.2-1.0 Ur Leukocyte Esterase Neg Urine Microscopic WBC < 1 Ur Squamous Epith Cells < 1 Alcohol, Quantitative Blood Type Antibody Screen BBK History Checked Assessment & Plan - Assessment and Plan (Free Text) Assessment: 77 y.o male with PMH of COPD, DM2, A fib, history of PE/DVT was seen in the ICU for left nondisplaced lateral malleolus fracture Plan: Patient examined and evaluated in ICU Charts, labs, vitals reviewed X-rays reviewed- nondisplaced lateral malleolus fracture left Discussed plan in detail with attending Dr. Roche Modified [place]ynn Compression applied to left LE Keep dressing clean, dry, intact. Patient to be NWB to the LLE Will continue to follow while in house Thank you for the consult
[2017-07-26] MEDS: Metoprolol 1 mg/ml Inj IVP PRN (17:20)
[2017-07-26] MEDS: HYDROmorphone 0.5 mg/0.5 ml ISec IVP PRN ×2 (18:10→23:59)
--- NOTE | 2017-07-26 19:06 | CP.PCM.PN ---
Subjective - Date & Time of Evaluation Date of Evaluation: 07/26/17 Time of Evaluation: 10:00 - Subjective Subjective: Patient seen bedside. Feeling well. Denies any pain . Afib on monitor HR 109 BP 117/85 saturating well 94 5 . With dysarthria and left side numbness passed swallow eval WBC 9 Hgb 13.8 BUN/ Cr 36/1.6 Left ankle Xray showed non displaced lmalleolar fracture CT head showed left parieto occipito fracture , right basal ganglia infarction Objective - Vital Signs/Intake and Output Vital Signs (last 24 hours): Temp Pulse Resp BP Pulse Ox 98.1 F 125 H 17 123/82 94 L 07/26/17 17:00 07/26/17 18:00 07/26/17 18:00 07/26/17 18:00 07/26/17 18:00 Intake and Output: 07/26/17 07/27/17 18:59 06:59 Intake Total 1265 Output Total 200 Balance 1065 - Medications Medications: Current Medications Acetaminophen (Tylenol 325 Mg Supp) 325 mg [place] Q6 PRN PRN Reason: Fever >100.4 F Acetaminophen (Tylenol 325mg Tab) 650 mg PO Q6 PRN PRN Reason: Pain, moderate (4-7) Last Admin: 07/26/17 12:52 Dose: 650 mg Albuterol Sulfate (Albuterol 0.083% Inhal Yesy (2.5 Mg/3 Ml) Ud) 2.5 mg INH RQ4 PRN PRN Reason: Shortness of Breath Albuterol/Ipratropium (Duoneb 3 Mg/0.5 Mg (3 Ml) Ud) 3 ml INH RQID [facility] Last Admin: 07/26/17 15:01 Dose: Not Given Atorvastatin Calcium (Lipitor) 40 mg PO DAILY [facility] Hydromorphone HCl (Dilaudid) 0.5 mg IVP Q2 PRN PRN Reason: Pain, moderate (4-7) Stop: 07/28/17 17:38 Last Admin: 07/26/17 18:10 Dose: 0.5 mg Heparin Sodium/Sodium Chloride (Heparin 51524 Units/250ml 1/2 Normal Saline) 25 ,000 units in 250 mls @ 18 mls/hr IV .[id number] [facility] PRN Reason: Protocol Last Titration: 12/01/17 18:06 Dose: 13 mls/hr Insulin Human Lispro (Humalog) 0 units SC Q6H [facility] PRN Reason: Protocol Last Admin: 07/26/17 12:49 Dose: 2 units Metoprolol Tartrate (Lopressor) 5 mg IVP Q6H PRN PRN Reason: For HR sustained > 120 Last Admin: 07/26/17 17:20 Dose: 5 mg Ondansetron HCl (Zofran Inj) 4 mg IVP Q6H PRN PRN Reason: Nausea/Vomiting - Labs Labs: 07/26/17 04:20 07/26/17 04:20 PT 13.5 Seconds (9.8-13.1) H 07/25/17 21:02 INR 1.2 (0.9-1.2) 07/25/17 21:02 APTT 82.5 Seconds (25.6-37.1) H D 07/26/17 17:09 - Constitutional Appears: Non-toxic, No Acute Distress - Head Exam Head Exam: ATRAUMATIC, NORMOCEPHALIC - Eye Exam Eye Exam: EOMI, PERRL Pupil Exam: NORMAL ACCOMODATION - ENT Exam ENT Exam: Mucous Membranes Moist, Normal Exam - Neck Exam Neck Exam: Full ROM, Normal Inspection - Respiratory Exam Respiratory Exam: Clear to Ausculation Bilateral. absent: Rales, Rhonchi, Wheezes - Cardiovascular Exam Cardiovascular Exam: Irregular Rhythm, +S1, +S2. absent: JVD - GI/Abdominal Exam GI & Abdominal Exam: Soft, Normal Bowel Sounds. absent: Distended, Guarding, Tenderness, Rebound - Rectal Exam Rectal Exam: Deferred - Extremities Exam Extremities Exam: Full ROM, Normal Capillary Refill, Normal Inspection. absent : Calf Tenderness, Pedal Edema - Back Exam Back Exam: NORMAL INSPECTION - Neurological Exam Neurological Exam: Alert, Awake Additional comments: left facial droop left side numbness left upper extremity pronator drift LLE 4/5 power - Psychiatric Exam Psychiatric exam: Normal Affect, Normal Mood - Skin Skin Exam: Dry, Intact, Normal Color, Warm Assessment and Plan - Assessment and Plan (Free Text) Assessment: 77-year-old man,former heavy cigarette smoker with a longstanding , COPD, atrial fibrillation, history of PE and DVt s/o IVC filter on Pradaxa , DM , HTN brought to Er for evaluation after fall from 5 flight of stairs. As per patient he was taking the stairs up to his apartment when he felt left arm and left leg weakness and numbness. He fell down the stairs and he sustained multiple injuries . He was brought to the ED and a code stroke was called for left sided weakness and an initial NIHSS of 8. CT scan of the head did not show any acute findings and CTA of the head/neck was negative for intracranial thrombus, but was found to have a pulmonary embolism on left main descending pulmonary artery . He was started on heparin drip and admitted to ICU . Imaging of pelvis, left arm , wrist , neck sll showed no fracture except left ankle non displaced malleolar fracture . Neuro was consulted He continues to have left sided numbness, but most of the weakness has resolved. He continues to have left facial droop and mild dysarthria, although his speech is easily understood. 1. Acute CVA continue ICU monitoring with left facial droop, dysarthria,left side numbness Neuro eval appreciated Allow permissive hypertension patient passed swallow eval Continue Statin, ASA F/u Echo , MRI head and MRA Glycemic control PT/OT / speech eval 2. Subacute PE patient has history of PE , DVT IVC filter Continue heparin drip for now As per neuro can switch to eliquist once heparin drip is discontinued 3. ARF Continue IVF BUN/cr 36/1.6 medications dosed to renal function 4. A fib rate uncontrolled Metoprolol 5 mg IV q6h PRN to control rate Will consider digoxin Po for better herat rate control cardiology cosnult appreciated f/u echo report 5.DM2 start diet accuchecks, insulin coverage f/u Hgb A1c 6. Non displaced left malleolar Ankle Fx pain control podiatry consult appreciated NWB to LLE 7. COPD (chronic obstructive pulmonary disease) stable pulmonary consulted stu 8. DVT prophylaxis Acute Heparin drip
[2017-07-26] MEDS ORDERED: Digoxin 250 mcg (0.25 mg) Tab PO ONE (19:31)
[2017-07-27] MEDS: Insulin Lispro (humaLOG) 100 Units/ml Inj SC SCH ×5 (01:44→21:58)
[2017-07-27] MEDS: Heparin 25,000units in D5W 25,000 UNITS/250 ML BAG IV SCH ×2 (02:08→16:19)
[2017-07-27] MEDS: HYDROmorphone 0.5 mg/0.5 ml ISec IVP PRN ×4 (02:10→20:26)
[2017-07-27] MEDS: Metoprolol 1 mg/ml Inj IVP PRN ×2 (07:08)
[2017-07-27] MEDS: Albuterol-Ipratrop 3 mg / 0.5 (3 ml) UD INH SCH ×2 (07:18→11:23)
[2017-07-27 07:39] LABS: HEMATOCRIT 37.1 % (35.0-51.0); MEAN CELL VOLUME 93.8 fl (80.0-94.0); MEAN CORPUSCULAR HGB CONC 34.1 g/dL (33.0-37.0); RED CELL DISTRIBUTION WIDTH 14.5 % (11.5-14.5); WHITE BLOOD COUNT 5.8 K/uL (4.8-10.8)
[2017-07-27 07:56] LABS: BLOOD UREA NITROGEN 23 mg/dl (9-20); CALCIUM 8.4 mg/dL (8.4-10.2); CARBON DIOXIDE 26 mmol/L (22-30); CHLORIDE 108 mmol/L (98-107); GFR AFRICAN-AMERICAN > 60; GLUCOSE,RANDOM 104 mg/dL (75-110); POTASSIUM 4.2 MMOL/L (3.6-5.0); SODIUM 140 mmol/l (132-148)
--- NOTE | 2017-07-27 08:00 | CP.PCM.PN ---
Objective - Vital Signs/Intake and Output Vital Signs (last 24 hours): Temp Pulse Resp BP Pulse Ox 98.4 F 146 H 17 141/82 98 07/27/17 04:00 07/27/17 07:08 07/27/17 06:01 07/27/17 07:08 07/27/17 06:01 Intake and Output: 07/27/17 07/27/17 06:59 18:59 Intake Total 679 Output Total 400 Balance 279 - Medications Medications: Current Medications Acetaminophen (Tylenol 325 Mg Supp) 325 mg [place] Q6 PRN PRN Reason: Fever >100.4 F Acetaminophen (Tylenol 325mg Tab) 650 mg PO Q6 PRN PRN Reason: Pain, moderate (4-7) Last Admin: 07/26/17 12:52 Dose: 650 mg Albuterol Sulfate (Albuterol 0.083% Inhal Yesy (2.5 Mg/3 Ml) Ud) 2.5 mg INH RQ4 PRN PRN Reason: Shortness of Breath Albuterol/Ipratropium (Duoneb 3 Mg/0.5 Mg (3 Ml) Ud) 3 ml INH RQID [facility] Last Admin: 07/27/17 07:18 Dose: 3 ml Atorvastatin Calcium (Lipitor) 40 mg PO DAILY [facility] Last Admin: 07/26/17 21:10 Dose: 40 mg Hydromorphone HCl (Dilaudid) 0.5 mg IVP Q2 PRN PRN Reason: Pain, moderate (4-7) Stop: 07/28/17 17:38 Last Admin: 07/27/17 02:10 Dose: 0.5 mg Heparin Sodium/Dextrose (Heparin 25,000 Units/250ml In D5w) 25,000 units in 250 mls @ 12 mls/hr IV .[id number] [facility] PRN Reason: Protocol Last Admin: 07/27/17 02:08 Dose: 13 mls/hr Insulin Human Lispro (Humalog) 0 units SC Q6H [facility] PRN Reason: Protocol Last Admin: 07/27/17 07:15 Dose: Not Given Metoprolol Tartrate (Lopressor) 5 mg IVP Q6H PRN PRN Reason: For HR sustained > 120 Last Admin: 07/27/17 07:08 Dose: 5 mg Ondansetron HCl (Zofran Inj) 4 mg IVP Q6H PRN PRN Reason: Nausea/Vomiting - Labs Labs: 07/26/17 04:20 07/27/17 05:25 PT 13.5 Seconds (9.8-13.1) H 07/25/17 21:02 INR 1.2 (0.9-1.2) 07/25/17 21:02 APTT 61.3 Seconds (25.6-37.1) H D 07/27/17 01:11 Assessment and Plan - Assessment and Plan (Free Text) Assessment: 77-year-old man,former heavy cigarette smoker with a longstanding , COPD, atrial fibrillation, history of PE and DVt s/o IVC filter on Pradaxa , DM , HTN brought to Er for evaluation after fall from 5 flight of stairs. As per patient he was taking the stairs up to his apartment when he felt left arm and left leg weakness and numbness. He fell down the stairs and he sustained multiple injuries . He was brought to the ED and a code stroke was called for left sided weakness and an initial NIHSS of 8. CT scan of the head did not show any acute findings and CTA of the head/neck was negative for intracranial thrombus, but was found to have a pulmonary embolism on left main descending pulmonary artery . He was started on heparin drip and admitted to ICU . Imaging of pelvis, left arm , wrist , neck sll showed no fracture except left ankle non displaced malleolar fracture . Neuro was consulted He continues to have left sided numbness, but most of the weakness has resolved. He continues to have left facial droop and mild dysarthria, although his speech is easily understood. 1. Acute CVA continue ICU monitoring with left facial droop, dysarthria,left side numbness Neuro eval appreciated Allow permissive hypertension patient passed swallow eval Continue Statin, ASA F/u Echo , MRI head and MRA Glycemic control PT/OT / speech eval 2. Subacute PE patient has history of PE , DVT IVC filter Continue heparin drip for now As per neuro can switch to eliquist once heparin drip is discontinued 3. ARF Continue IVF BUN/cr 36/1.6 medications dosed to renal function 4. A fib rate uncontrolled Metoprolol 5 mg IV q6h PRN to control rate Will consider digoxin Po for better herat rate control cardiology cosnult appreciated f/u echo report 5.DM2 start diet accuchecks, insulin coverage f/u Hgb A1c 6. Non displaced left malleolar Ankle Fx pain control podiatry consult appreciated NWB to LLE 7. COPD (chronic obstructive pulmonary disease) stable pulmonary consulted stu 8. DVT prophylaxis Acute Heparin drip
--- NOTE | 2017-07-27 08:31 | CP.CCUPN ---
CCU Subjective - Physician Review Subjective (Free Text): Awake and alert, geovany required multiple doses of Dilaudid for L hip pain-relief, no untoward effects noted on mental status, with up to Q2H low dose Dilaudid. Anahiev is non-formulary at [facility] as requested for pain relief use by Neurology. Afebrile, no fever spikes, other hemodynamics have been acceptable. he denies any SOB, chest discomfort at bed rest. Very mild left sided weakness noted, but speech is near normal too. Other vitals and I/O's reviewed. ROS: No other pertinent negs or positives on 10+ system review. PMSFH: All Nursing and physician documentation reviewed to date; no new pertinent info noted relevant to current medical problems. IMPRESSION / MAJOR PROBLEMS NOW: 1. Acute CVA 2. H/o Chronic A fib on NOAC 3. H/o DVT with IVCF, also on NOAC 4. s/p Fall at home 5. SubAcute PTE: non-massive 6. h/o COPD 7. h/o DM II PLANS: essentially unchanged today- 1. Unclear if true PTE event, remains on Heparin drip for now. As renal function continues to improve, could impose another CT Chest angio study to re- assess extent of PTE mentioned on initial CTA Head/ Neck but not on CTA Chest study; or do V/Q lung scan if tolerable. 2. Venous Doppler US legs. 3. ECHO for RA/RV size and strain, Trops negative x 3. 4. Neuro eval reviewed: further vascular studies ordered. Statin therapy. Neuro recommends IV Acetaminophen prn for pain. 5. Keep normoglycemic. 6. Stable for tele bed monitoring. 7. Appears to not need any surgical repair of ankle fracture. If so, start post-CVA PT/OT/Speech therapy as tolerated. CCU Objective - Vital Signs / Intake & Output Vital Signs (Last 4 hours): Vital Signs Temp Pulse Resp BP Pulse Ox 07/27/17 08:00 98.5 F 116 H 15 141/82 91 L 07/27/17 07:08 146 H 141/82 07/27/17 06:01 110 H 17 134/75 98 Intake and Output (Last 8hrs): Intake & Output 07/26/17 07/27/17 07/27/17 22:59 06:59 14:59 Intake Total 1065 679 Output Total 200 400 Balance 865 279 Intake: IV 1065 525 Intake, Piggyback 104 Oral 50 Output: Urine 200 400 Urine, Voided 200 400 Other: # Voids Urine, Voided 2 - Physical Exam Head: Positive for: Atraumatic, Normocephalic Pupils: Positive for: PERRL Extroacular Muscles: Positive for: EOMI Conjunctiva: Positive for: Normal. Negative for: Icteric Mouth: Positive for: Moist Mucous Membranes Neck: Positive for: Normal Range of Motion. Negative for: JVD Respiratory/Chest: Positive for: Clear to Auscultation, Decreased Breath Sounds (left base). Negative for: Accessory Muscle Use, Wheezes Cardiovascular: Positive for: Irregular Rhythm. Negative for: Murmurs, Tachycardic, Bradycardic, Rub Abdomen: Positive for: Normal Bowel Sounds. Negative for: Tenderness, Distention, Mass/Organomegaly Lower Extremity: Positive for: Edema (trace), NORMAL PULSES. Negative for: CALF TENDERNESS, Cyanosis Skin: Positive for: Warm, Dry. Negative for: Rashes Psychiatric: Positive for: Alert, Oriented x 3, Normal Mood - Medications Active Medications: Active Medications Generic Name Dose Route Start Last Admin Trade Name Freq PRN Reason Stop Dose Admin Acetaminophen 325 mg 07/26/17 00:44 Tylenol 325 Mg Supp [place] Q6 PRN Fever >100.4 F Acetaminophen 650 mg 07/26/17 12:40 07/26/17 12:52 Tylenol 325mg Tab PO 650 mg Q6 PRN Administration Pain, moderate (4-7) Albuterol Sulfate 2.5 mg 07/26/17 09:41 Albuterol 0.083% Inhal Yesy (2.5 Mg/3 Ml) Ud INH RQ4 PRN Shortness of Breath Albuterol/Ipratropium 3 ml 07/26/17 12:00 07/27/17 07:18 Duoneb 3 Mg/0.5 Mg (3 Ml) Ud INH 3 ml RQID MUNA Administration Atorvastatin Calcium 40 mg 07/26/17 22:00 07/26/17 21:10 Lipitor PO 40 mg DAILY MUNA Administration Hydromorphone HCl 0.5 mg 07/26/17 17:38 07/27/17 02:10 Dilaudid IVP 07/28/17 17:38 0.5 mg Q2 PRN Administration Pain, moderate (4-7) Heparin Sodium/Dextrose 25,000 units in 250 mls @ 12 mls/hr 07/27/17 01:15 02:08 Heparin 25,000 Units/250ml In D5w IV 13 mls/hr .[id number] [facility] Administration Protocol Insulin Human Lispro 0 units 07/26/17 01:45 07/27/17 07:15 Humalog SC Not Given Q6H [facility] Protocol Metoprolol Tartrate 5 mg 07/26/17 00:29 07/27/17 07:08 Lopressor IVP 5 mg Q6H PRN Administration For HR sustained > 120 Ondansetron HCl 4 mg 07/26/17 00:07 Zofran Inj IVP Q6H PRN Nausea/Vomiting - Patient Studies Lab Studies: Lab Studies 07/27/17 07/27/17 07/27/17 Range/Units 07:30 05:44 05:25 WBC (4.8-10.8) K/uL RBC (4.40-5.90) Mil/uL Hgb (12.0-18.0) g/dL Hct (35.0-51.0) % MCV (80.0-94.0) fl MCH (27.0-31.0) pg MCHC (33.0-37.0) g/dL RDW (11.5-14.5) % Plt Count (130-400) K/uL APTT 76.7 H D (25.6-37.1) Seconds Sodium 140 (132-148) mmol/l Potassium 4.2 (3.6-5.0) MMOL/L Chloride 108 H (98-107) mmol/L Carbon Dioxide 26 (22-30) mmol/L Anion Gap 10 (10-20) BUN 23 H (9-20) mg/dl Creatinine 1.3 (0.8-1.5) mg/dl Est GFR ( Amer) > 60 Est GFR (Non-Af Amer) 54 POC Glucose (mg/dL) 100 (65-110) mg/dL Random Glucose 104 (75-110) mg/dL Hemoglobin A1c (4.2-6.5) % Calcium 8.4 (8.4-10.2) mg/dL Troponin I (0.00-0.120) ng/mL Urine Color (YELLOW) Urine Clarity (Clear) Urine pH (5.0-8.0) Ur Specific [place] (1.003-1.030) Urine Protein (NEGATIVE) mg/dL Urine Glucose (UA) (Normal) mg/dL Urine Ketones (NEGATIVE) mg/dL Urine Blood (NEGATIVE) Urine Nitrate (NEGATIVE) Urine Bilirubin (NEGATIVE) Urine Urobilinogen (0.2-1.0) mg/dL Ur Leukocyte Esterase (Negative) Bebeto/uL Urine Microscopic WBC (0-5) /hpf Ur Squamous Epith Cells (0-5) /hpf 07/27/17 07/27/17 07/26/17 Range/Units 05:20 01:11 21:30 WBC 5.8 (4.8-10.8) K/uL RBC 3.95 L (4.40-5.90) Mil/uL Hgb 12.6 (12.0-18.0) g/dL Hct 37.1 (35.0-51.0) % MCV 93.8 (80.0-94.0) fl MCH 32.0 H (27.0-31.0) pg MCHC 34.1 (33.0-37.0) g/dL RDW 14.5 (11.5-14.5) % Plt Count 129 L (130-400) K/uL APTT 61.3 H D (25.6-37.1) Seconds Sodium (132-148) mmol/l Potassium (3.6-5.0) MMOL/L Chloride (98-107) mmol/L Carbon Dioxide (22-30) mmol/L Anion Gap (10-20) BUN (9-20) mg/dl Creatinine (0.8-1.5) mg/dl Est GFR ( Amer) Est GFR (Non-Af Amer) POC Glucose (mg/dL) 160 H (65-110) mg/dL Random Glucose (75-110) mg/dL Hemoglobin A1c (4.2-6.5) % Calcium (8.4-10.2) mg/dL Troponin I (0.00-0.120) ng/mL Urine Color (YELLOW) Urine Clarity (Clear) Urine pH (5.0-8.0) Ur Specific [place] (1.003-1.030) Urine Protein (NEGATIVE) mg/dL Urine Glucose (UA) (Normal) mg/dL Urine Ketones (NEGATIVE) mg/dL Urine Blood (NEGATIVE) Urine Nitrate (NEGATIVE) Urine Bilirubin (NEGATIVE) Urine Urobilinogen (0.2-1.0) mg/dL Ur Leukocyte Esterase (Negative) Bebeto/uL Urine Microscopic WBC (0-5) /hpf Ur Squamous Epith Cells (0-5) /hpf 07/26/17 07/26/17 07/26/17 Range/Units 17:09 16:10 11:39 WBC (4.8-10.8) K/uL RBC (4.40-5.90) Mil/uL Hgb (12.0-18.0) g/dL Hct (35.0-51.0) % MCV (80.0-94.0) fl MCH (27.0-31.0) pg MCHC (33.0-37.0) g/dL RDW (11.5-14.5) % Plt Count (130-400) K/uL APTT 82.5 H D (25.6-37.1) Seconds Sodium (132-148) mmol/l Potassium (3.6-5.0) MMOL/L Chloride (98-107) mmol/L Carbon Dioxide (22-30) mmol/L Anion Gap (10-20) BUN (9-20) mg/dl Creatinine (0.8-1.5) mg/dl Est GFR ( Amer) Est GFR (Non-Af Amer) POC Glucose (mg/dL) 95 (65-110) mg/dL Random Glucose (75-110) mg/dL Hemoglobin A1c (4.2-6.5) % Calcium (8.4-10.2) mg/dL Troponin I (0.00-0.120) ng/mL Urine Color Yellow (YELLOW) Urine Clarity Slighty-cloudy (Clear) Urine pH 5.0 (5.0-8.0) Ur Specific [place] 1.039 H (1.003-1.030) Urine Protein Negative (NEGATIVE) mg/dL Urine Glucose (UA) Neg (Normal) mg/dL Urine Ketones Negative (NEGATIVE) mg/dL Urine Blood Negative (NEGATIVE) Urine Nitrate Negative (NEGATIVE) Urine Bilirubin Negative (NEGATIVE) Urine Urobilinogen 0.2-1.0 (0.2-1.0) mg/dL Ur Leukocyte Esterase Neg (Negative) Bebeto/uL Urine Microscopic WBC < 1 (0-5) /hpf Ur Squamous Epith Cells < 1 (0-5) /hpf 07/26/17 07/26/17 07/25/17 Range/Units 11:21 10:39 21:06 WBC (4.8-10.8) K/uL RBC (4.40-5.90) Mil/uL Hgb (12.0-18.0) g/dL Hct (35.0-51.0) % MCV (80.0-94.0) fl MCH (27.0-31.0) pg MCHC (33.0-37.0) g/dL RDW (11.5-14.5) % Plt Count (130-400) K/uL APTT (25.6-37.1) Seconds Sodium (132-148) mmol/l Potassium (3.6-5.0) MMOL/L Chloride (98-107) mmol/L Carbon Dioxide (22-30) mmol/L Anion Gap (10-20) BUN (9-20) mg/dl Creatinine (0.8-1.5) mg/dl Est GFR ( Amer) Est GFR (Non-Af Amer) POC Glucose (mg/dL) 187 H (65-110) mg/dL Random Glucose (75-110) mg/dL Hemoglobin A1c 5.9 (4.2-6.5) % Calcium (8.4-10.2) mg/dL Troponin I < 0.0120 (0.00-0.120) ng/mL Urine Color (YELLOW) Urine Clarity (Clear) Urine pH (5.0-8.0) Ur Specific [place] (1.003-1.030) Urine Protein (NEGATIVE) mg/dL Urine Glucose (UA) (Normal) mg/dL Urine Ketones (NEGATIVE) mg/dL Urine Blood (NEGATIVE) Urine Nitrate (NEGATIVE) Urine Bilirubin (NEGATIVE) Urine Urobilinogen (0.2-1.0) mg/dL Ur Leukocyte Esterase (Negative) Bebeto/uL Urine Microscopic WBC (0-5) /hpf Ur Squamous Epith Cells (0-5) /hpf Laboratory Results - last 24 hr 07/25/17 07/26/17 07/26/17 21:06 10:39 11:21 WBC RBC Hgb Hct MCV MCH MCHC RDW Plt Count APTT Sodium Potassium Chloride Carbon Dioxide Anion Gap BUN Creatinine Est GFR ( Amer) Est GFR (Non-Af Amer) POC Glucose (mg/dL) 187 H Random Glucose Hemoglobin A1c 5.9 Calcium Troponin I < 0.0120 Urine Color Urine Clarity Urine pH Ur Specific [place] Urine Protein Urine Glucose (UA) Urine Ketones Urine Blood Urine Nitrate Urine Bilirubin Urine Urobilinogen Ur Leukocyte Esterase Urine Microscopic WBC Ur Squamous Epith Cells 07/26/17 07/26/17 07/26/17 11:39 16:10 17:09 WBC RBC Hgb Hct MCV MCH MCHC RDW Plt Count APTT 82.5 H D Sodium Potassium Chloride Carbon Dioxide Anion Gap BUN Creatinine Est GFR ( Amer) Est GFR (Non-Af Amer) POC Glucose (mg/dL) 95 Random Glucose Hemoglobin A1c Calcium Troponin I Urine Color Yellow Urine Clarity Slighty-cloudy Urine pH 5.0 Ur Specific [place] 1.039 H Urine Protein Negative Urine Glucose (UA) Neg Urine Ketones Negative Urine Blood Negative Urine Nitrate Negative Urine Bilirubin Negative Urine Urobilinogen 0.2-1.0 Ur Leukocyte Esterase Neg Urine Microscopic WBC < 1 Ur Squamous Epith Cells < 1 07/26/17 07/27/17 07/27/17 21:30 01:11 05:20 WBC 5.8 RBC 3.95 L Hgb 12.6 Hct 37.1 MCV 93.8 MCH 32.0 H MCHC 34.1 RDW 14.5 Plt Count 129 L APTT 61.3 H D Sodium Potassium Chloride Carbon Dioxide Anion Gap BUN Creatinine Est GFR ( Amer) Est GFR (Non-Af Amer) POC Glucose (mg/dL) 160 H Random Glucose Hemoglobin A1c Calcium Troponin I Urine Color Urine Clarity Urine pH Ur Specific [place] Urine Protein Urine Glucose (UA) Urine Ketones Urine Blood Urine Nitrate Urine Bilirubin Urine Urobilinogen Ur Leukocyte Esterase Urine Microscopic WBC Ur Squamous Epith Cells 07/27/17 07/27/17 07/27/17 05:25 05:44 07:30 WBC RBC Hgb Hct MCV MCH MCHC RDW Plt Count APTT 76.7 H D Sodium 140 Potassium 4.2 Chloride 108 H Carbon Dioxide 26 Anion Gap 10 BUN 23 H Creatinine 1.3 Est GFR ( Amer) > 60 Est GFR (Non-Af Amer) 54 POC Glucose (mg/dL) 100 Random Glucose 104 Hemoglobin A1c Calcium 8.4 Troponin I Urine Color Urine Clarity Urine pH Ur Specific [place] Urine Protein Urine Glucose (UA) Urine Ketones Urine Blood Urine Nitrate Urine Bilirubin Urine Urobilinogen Ur Leukocyte Esterase Urine Microscopic WBC Ur Squamous Epith Cells Fingerstick Blood Sugar Results: 100 Review of Systems - Review of Systems All systems: reviewed and no additional remarkable complaints except (as above) Critical Care Progress Note - Nutrition Nutrition: Nutrition Category Date Time Status Consistent Carbohydrate [DIET] Diets 07/27/17 Breakfast Active
[2017-07-27] MEDS ORDERED: Digoxin 0.05 mg/mL Elixir 5mL PO ONE (09:45)
--- NOTE | 2017-07-27 11:17 | CP.PCM.PN ---
Subjective - Date & Time of Evaluation Date of Evaluation: 07/27/17 Time of Evaluation: 10:00 - Subjective Subjective: Pt is in AF w/ RVR Digoxin was given last evening and again this AM Will place on Digoxin 0.25 daily Objective - Vital Signs/Intake and Output Vital Signs (last 24 hours): Temp Pulse Resp BP Pulse Ox 98.5 F 139 H 28 H 139/84 96 07/27/17 10:05 07/27/17 10:05 07/27/17 10:05 07/27/17 10:05 07/27/17 10:00 Intake and Output: 07/27/17 07/27/17 06:59 18:59 Intake Total 679 150 Output Total 400 200 Balance 279 -50 - Medications Medications: Current Medications Acetaminophen (Tylenol 325 Mg Supp) 325 mg [place] Q6 PRN PRN Reason: Fever >100.4 F Acetaminophen (Tylenol 325mg Tab) 650 mg PO Q6 PRN PRN Reason: Pain, moderate (4-7) Last Admin: 07/27/17 09:05 Dose: 650 mg Albuterol Sulfate (Albuterol 0.083% Inhal Yesy (2.5 Mg/3 Ml) Ud) 2.5 mg INH RQ4 PRN PRN Reason: Shortness of Breath Albuterol/Ipratropium (Duoneb 3 Mg/0.5 Mg (3 Ml) Ud) 3 ml INH RQID MUNA Last Admin: 07/27/17 07:18 Dose: 3 ml Atorvastatin Calcium (Lipitor) 40 mg PO DAILY [facility] Last Admin: 07/27/17 09:04 Dose: 40 mg Digoxin (Lanoxin Elixir Soln) 0.25 mg PO DAILY [facility] Hydromorphone HCl (Dilaudid) 0.5 mg IVP Q2 PRN PRN Reason: Pain, moderate (4-7) Stop: 07/28/17 17:38 Last Admin: 07/27/17 02:10 Dose: 0.5 mg Heparin Sodium/Dextrose (Heparin 25,000 Units/250ml In D5w) 25,000 units in 250 mls @ 12 mls/hr IV .[id number] MUNA PRN Reason: Protocol Last Titration: 07/27/17 09:01 Dose: 11 mls/hr Insulin Human Lispro (Humalog) 0 units SC Q6H MUNA PRN Reason: Protocol Last Admin: 07/27/17 07:15 Dose: Not Given Ondansetron HCl (Zofran Inj) 4 mg IVP Q6H PRN PRN Reason: Nausea/Vomiting Last Admin: 07/27/17 10:21 Dose: 4 mg - Labs Labs: 07/27/17 05:20 07/27/17 05:25 PT 13.5 Seconds (9.8-13.1) H 07/25/17 21:02 INR 1.2 (0.9-1.2) 07/25/17 21:02 APTT 76.7 Seconds (25.6-37.1) H D 07/27/17 07:30 Assessment and Plan (1) CVA (cerebral vascular accident) Status: Acute (2) Left fibular fracture Status: Acute (3) COPD (chronic obstructive pulmonary disease) Status: Chronic (4) DM2 (diabetes mellitus, type 2) Status: Chronic
--- NOTE | 2017-07-27 12:08 | CP.PCM.PN ---
Subjective - Date & Time of Evaluation Date of Evaluation: 07/27/17 Time of Evaluation: 11:55 - Subjective Subjective: Looks comfortable this morning. Remains in a fib with RVR. Oxygenation and vital signs are stable. Pain controlled with low dose Dilaudid w/o inducing somnolence. Faint residual facial droop still present. Speech is better. Scattered rhonchi are present in the dependant areas of both lungs (R>L). Few low pitched expiratory wheezes are heard. No bronchial breath souds. Dry to medium rales (few) are present in lower lobes posteriorly. Heart sounds are very distant, tachy ~120. Abdomen is soft with NABS. New dressing applied to left ankle, toes are pink and warm. On review of chest CT done w/o contrast there is noted definite oligemia of the LLL, favoring the dx of acute PE. Will continue anticoagulation with heparin for now, and switch to Eliquis later. Will continue respiratory treatment with once daily Spiriva and switch albuterol to low dose Xopenex to hopefully help reduce the heart rate by decreasing the adrenergic stimulus. OOB to chair TIFFANIE. Will add acetylcysteine to the aerosol regimen. Objective - Vital Signs/Intake and Output Vital Signs (last 24 hours): Temp Pulse Resp BP Pulse Ox 98.5 F 139 H 28 H 139/84 96 07/27/17 10:05 07/27/17 10:05 07/27/17 10:05 07/27/17 10:05 07/27/17 10:00 Intake and Output: 07/26/17 07/27/17 23:59 11:59 Intake Total 1165 829 Output Total 200 600 Balance 965 229 - Medications Medications: Current Medications Acetaminophen (Tylenol 325 Mg Supp) 325 mg [place] Q6 PRN PRN Reason: Fever >100.4 F Acetaminophen (Tylenol 325mg Tab) 650 mg PO Q6 PRN PRN Reason: Pain, moderate (4-7) Last Admin: 07/27/17 09:05 Dose: 650 mg Albuterol Sulfate (Albuterol 0.083% Inhal Yesy (2.5 Mg/3 Ml) Ud) 2.5 mg INH RQ4 PRN PRN Reason: Shortness of Breath Albuterol/Ipratropium (Duoneb 3 Mg/0.5 Mg (3 Ml) Ud) 3 ml INH RQID MUNA Last Admin: 07/27/17 11:23 Dose: 3 ml Atorvastatin Calcium (Lipitor) 40 mg PO DAILY [facility] Last Admin: 07/27/17 09:04 Dose: 40 mg Digoxin (Lanoxin Elixir Soln) 0.25 mg PO DAILY COUNT [facility]CLUD[facility] Hydromorphone HCl (Dilaudid) 0.5 mg IVP Q2 PRN PRN Reason: Pain, moderate (4-7) Stop: 07/28/17 17:38 Last Admin: 07/27/17 02:10 Dose: 0.5 mg Heparin Sodium/Dextrose (Heparin 25,000 Units/250ml In D5w) 25,000 units in 250 mls @ 12 mls/hr IV .[id number] COUNT [facility]CLUD[facility] PRN Reason: Protocol Last Titration: 07/27/17 09:01 Dose: 11 mls/hr Insulin Human Lispro (Humalog) 0 units SC Q6H MUNA PRN Reason: Protocol Last Admin: 07/27/17 07:15 Dose: Not Given Ondansetron HCl (Zofran Inj) 4 mg IVP Q6H PRN PRN Reason: Nausea/Vomiting Last Admin: 07/27/17 10:21 Dose: 4 mg - Labs Labs: 07/27/17 05:20 07/27/17 05:25 PT 13.5 Seconds (9.8-13.1) H 07/25/17 21:02 INR 1.2 (0.9-1.2) 07/25/17 21:02 APTT 76.7 Seconds (25.6-37.1) H D 07/27/17 07:30 Assessment and Plan (1) CVA (cerebral vascular accident) Status: Acute (2) Pulmonary embolism Status: Acute (3) COPD (chronic obstructive pulmonary disease) Status: Chronic (4) DM2 (diabetes mellitus, type 2) Status: Chronic
[2017-07-27] MEDS ORDERED: Levalbuterol 0.63 MG/3 ML Inhal Soln UD INH PRN (12:16)
--- NOTE | 2017-07-27 12:24 | CP.PCM.PN ---
Subjective - Date & Time of Evaluation Date of Evaluation: 07/27/17 Time of Evaluation: 09:30 - Subjective Subjective: Patient seen and examined bedside. Lying in bed in NAD.Complains of left and right arm numbness, speech has improved. Still afib with RVR on monitor HR ranging to 140 , denies any chest pain, palpitations, chest pain .Pain is controlled. No acute issues overnight BP 141/82 afebrile unable to stay still for MRI of head. Objective - Vital Signs/Intake and Output Vital Signs (last 24 hours): Temp Pulse Resp BP Pulse Ox 98.5 F 139 H 28 H 139/84 96 07/27/17 10:05 07/27/17 10:05 07/27/17 10:05 07/27/17 10:05 07/27/17 10:00 Intake and Output: 07/27/17 07/27/17 06:59 18:59 Intake Total 679 150 Output Total 400 200 Balance 279 -50 - Medications Medications: Current Medications Acetaminophen (Tylenol 325 Mg Supp) 325 mg [place] Q6 PRN PRN Reason: Fever >100.4 F Acetaminophen (Tylenol 325mg Tab) 650 mg PO Q6 PRN PRN Reason: Pain, moderate (4-7) Last Admin: 07/27/17 09:05 Dose: 650 mg Albuterol Sulfate (Albuterol 0.083% Inhal Yesy (2.5 Mg/3 Ml) Ud) 2.5 mg INH RQ4 PRN PRN Reason: Shortness of Breath Albuterol/Ipratropium (Duoneb 3 Mg/0.5 Mg (3 Ml) Ud) 3 ml INH RQID [facility] Last Admin: 07/27/17 11:23 Dose: 3 ml Atorvastatin Calcium (Lipitor) 40 mg PO DAILY [facility] Last Admin: 07/27/17 09:04 Dose: 40 mg Digoxin (Lanoxin Elixir Soln) 0.25 mg PO DAILY [facility] Hydromorphone HCl (Dilaudid) 0.5 mg IVP Q2 PRN PRN Reason: Pain, moderate (4-7) Stop: 07/28/17 17:38 Last Admin: 07/27/17 02:10 Dose: 0.5 mg Heparin Sodium/Dextrose (Heparin 25,000 Units/250ml In D5w) 25,000 units in 250 mls @ 12 mls/hr IV .[id number] MUNA PRN Reason: Protocol Last Titration: 07/27/17 09:01 Dose: 11 mls/hr Insulin Human Lispro (Humalog) 0 units SC Q6H MUNA PRN Reason: Protocol Last Admin: 07/27/17 07:15 Dose: Not Given Ondansetron HCl (Zofran Inj) 4 mg IVP Q6H PRN PRN Reason: Nausea/Vomiting Last Admin: 07/27/17 10:21 Dose: 4 mg - Labs Labs: 07/27/17 05:20 07/27/17 05:25 PT 13.5 Seconds (9.8-13.1) H 07/25/17 21:02 INR 1.2 (0.9-1.2) 07/25/17 21:02 APTT 76.7 Seconds (25.6-37.1) H D 07/27/17 07:30 - Constitutional Appears: Non-toxic, No Acute Distress - Head Exam Additional comments: right frontal hematoma - Eye Exam Eye Exam: EOMI, Normal appearance, PERRL Pupil Exam: NORMAL ACCOMODATION - ENT Exam ENT Exam: Mucous Membranes Moist, Normal Exam - Neck Exam Neck Exam: Full ROM, Normal Inspection - Respiratory Exam Respiratory Exam: Rhonchi, NORMAL BREATHING PATTERN. absent: Accessory Muscle Use, Prolonged Expiratory Phase, Wheezes - Cardiovascular Exam Cardiovascular Exam: Tachycardia, Irregular Rhythm. absent: JVD - GI/Abdominal Exam GI & Abdominal Exam: Soft, Normal Bowel Sounds. absent: Distended, Guarding, Tenderness, Rebound - Rectal Exam Rectal Exam: Deferred - Extremities Exam Extremities Exam: Full ROM, Normal Capillary Refill, Normal Inspection. absent : Pedal Edema - Back Exam Back Exam: NORMAL INSPECTION - Neurological Exam Neurological Exam: Alert, Awake, Oriented x3 Additional comments: left facial droop left arm numbness - Psychiatric Exam Psychiatric exam: Normal Affect - Skin Skin Exam: Dry, Normal Color, Warm Assessment and Plan - Assessment and Plan (Free Text) Assessment: 77-year-old man,former heavy cigarette smoker with a longstanding , COPD, atrial fibrillation, history of PE and DVt s/p IVC filter on Pradaxa , DM , HTN brought to ER for evaluation after fall from 5 flights of stairs. As per patient he was taking the stairs up to his apartment when he felt left arm and left leg weakness and numbness. He fell down the stairs and sustained multiple injuries . He was brought to the ED and a code stroke was called for left sided weakness and an initial NIHSS of 8. CT scan of the head did not show any acute findings and CTA of the head/neck was negative for intracranial thrombus, but was found to have a pulmonary embolism on left main and descending pulmonary artery . He was started on heparin drip and admitted to ICU . Imaging of pelvis , left arm , wrist , neck all showed no fractures except left ankle non displaced malleolar fracture . Neuro was consulted He continues to have left sided numbness, but most of the weakness has resolved. He continues to have left facial droop , dysarthria resolved. 1. Acute CVA presented with left facial droop, dysarthria,left side numbness and weakness. At present left facial droop and left side numbness persists. Neuro eval appreciated Allow permissive hypertension patient passed swallow eval Continue Statin, ASA F/u Echo , MRI head and MRA head / neck Glycemic control PT/OT / speech eval 2. Subacute PE patient has history of PE , DVT IVC filter Continue heparin drip for now As per neuro can switch to eliquist once heparin drip is discontinued 3. ARF improved, most likely prerenal Continue IVF BUN/cr 23/1.3 medications dosed to renal function 4. A fib with RVR rate uncontrolled patient has history of chronic afib and was on metoprolol and cardizem at home both metoprolol and cardizem on hold to allow permissive hypertension Given Digoxin yesterday and this AM 0.5 mg PO .Started on Digoxin 0.25 mg po daily cardiology consult appreciated f/u echo report 5.DM2 started diet accuchecks, insulin coverage f/u Hgb A1c 6. Non displaced left malleolar Ankle Fx pain control podiatry consult appreciated NWB to LLE 7. COPD (chronic obstructive pulmonary disease) with rhonchi today pulmonary consulted changed Duonebs to xopenex Started mucomyst and spiriva as per pulmonary 8. DVT prophylaxis Acute Heparin drip
[2017-07-27] MEDS ORDERED: Digoxin 500 mcg/2ml (0.5 mg/2ml) Inj IVP ONE (12:25)
[2017-07-27 12:31] VITALS: PULSE 160
[2017-07-27] MEDS: Tiotropium 18 mcg Cap For Inhalation INH SCH (13:41)
[2017-07-27] MEDS: Levalbuterol 0.63 MG/3 ML Inhal Soln UD INH SCH (15:21)
[2017-07-27] MEDS: Acetylcysteine 10% 4 ML IH SCH ×2 (15:22→22:02)
[2017-07-27] MEDS: Metoprolol 1 mg/ml Inj IVP SCH ×2 (17:11→22:59)
[2017-07-27] MEDS: Sodium Chloride 0.9% 1,000 ML IV SCH (17:11)
--- NOTE | 2017-07-28 00:50 | MRI ---
PROCEDURE: MR Angiography of the neck without contrast HISTORY: CVA COMPARISON: None available. TECHNIQUE: 3D [id number] angiography of the neck was performed. Rotating maximum intensity projection images of the cervical carotid and vertebral arteries were generated. The origins of the common carotid arteries were not visualized, which is a limitation inherent to the non-contrast time of flight technique. FINDINGS: RIGHT CAROTID ARTERIES: No significant stenosis of the right common carotid artery, carotid bifurcation or right internal carotid artery. LEFT CAROTID ARTERIES: Re- demonstrated is a move moderate appearing stenotic lesion at the level of the left carotid bifurcation extending to the the proximal left internal carotid artery which was estimated at approximately 30-40 % on CTA. However note that the current study poorly delineates this area of stenosis. Consider carotid Doppler of for further evaluation if necessary. VERTEBRAL ARTERIES: Right Vertebral Artery: Normal. Left Vertebral Artery: Normal. OTHER FINDINGS: None. IMPRESSION: Re- demonstrated is a mild - moderate appearing stenotic lesion at the level of the left carotid bifurcation extending into the proximal left internal carotid artery although this is less well seen on this exam as compared to high-resolution CTA of the neck and brain 07/25/2017. Note that the stenosis was estimated between 30-40 % on that exam. Consider followup carotid Doppler for further evaluation if necessary.
[2017-07-28] MEDS: Insulin Lispro (humaLOG) 100 Units/ml Inj SC SCH ×4 (01:55→21:37)
[2017-07-28] MEDS: Metoprolol 1 mg/ml Inj IVP SCH ×2 (03:40→09:45)
[2017-07-28] MEDS: HYDROmorphone 0.5 mg/0.5 ml ISec IVP PRN (04:22)
[2017-07-28 06:37] LABS: HEMATOCRIT 37.7 % (35.0-51.0); MEAN CORPUSCULAR HEMOGLOBIN 31.6 pg (27.0-31.0); MEAN CORPUSCULAR HGB CONC 33.3 g/dL (33.0-37.0); RED CELL DISTRIBUTION WIDTH 14.6 % (11.5-14.5); WHITE BLOOD COUNT 6.7 K/uL (4.8-10.8)
[2017-07-28 06:54] LABS: BLOOD UREA NITROGEN 17 mg/dl (9-20); CALCIUM 8.7 mg/dL (8.4-10.2); CARBON DIOXIDE 26 mmol/L (22-30); CHLORIDE 105 mmol/L (98-107); GFR AFRICAN-AMERICAN > 60; GLUCOSE,RANDOM 178 mg/dL (75-110); SODIUM 140 mmol/l (132-148)
[2017-07-28] MEDS: Levalbuterol 0.63 MG/3 ML Inhal Soln UD INH SCH ×2 (07:35→23:40)
[2017-07-28] MEDS: Acetylcysteine 10% 4 ML IH SCH (07:36)
--- NOTE | 2017-07-28 08:18 | CP.PCM.PN ---
Subjective - Date & Time of Evaluation Date of Evaluation: 07/28/17 Time of Evaluation: 08:00 - Subjective Subjective: Patient seen and examined bedside. No acute issues overnight. Still afib on monitor with uncontrolled rate with HR ranging 130-147.Complains of epigastric discomfort , feeling nauseated. Passing flatus but has had no BM since admission .Unable to void freely. denies any chest pain or SOB . complains of pain to left foot and lower back, with numbness to LUE BP 142/72 afebrile O2 Sat 98 % ON 2 l o2 via NC Objective - Vital Signs/Intake and Output Vital Signs (last 24 hours): Temp Pulse Resp BP Pulse Ox 98 F 143 H 26 H 139/100 H 98 07/27/17 20:00 07/28/17 03:40 07/27/17 22:00 07/28/17 03:40 07/27/17 22:00 Intake and Output: 07/28/17 07/28/17 06:59 18:59 Intake Total 0 Balance 0 - Medications Medications: Current Medications Acetaminophen (Tylenol 325 Mg Supp) 325 mg [place] Q6 PRN PRN Reason: Fever >100.4 F Acetaminophen (Tylenol 325mg Tab) 650 mg PO Q6 PRN PRN Reason: Pain, moderate (4-7) Last Admin: 07/27/17 16:25 Dose: 650 mg Acetylcysteine (Mucomyst 10% 4ml) 2 ml IH RBID [facility] Last Admin: 07/28/17 07:36 Dose: Not Given Atorvastatin Calcium (Lipitor) 40 mg PO DAILY [facility] Last Admin: 07/27/17 09:04 Dose: 40 mg Digoxin (Lanoxin Elixir Soln) 0.25 mg PO DAILY [facility] Famotidine (Pepcid) 20 mg PO BID [facility] Last Admin: 07/27/17 16:23 Dose: 20 mg Hydromorphone HCl (Dilaudid) 0.5 mg IVP Q2 PRN PRN Reason: Pain, moderate (4-7) Stop: 07/28/17 17:38 Last Admin: 07/28/17 04:22 Dose: 0.5 mg Heparin Sodium/Dextrose (Heparin 25,000 Units/250ml In D5w) 25,000 units in 250 mls @ 12 mls/hr IV .[id number] [facility] PRN Reason: Protocol Last Titration: 07/27/17 22:50 Dose: 13 mls/hr Sodium Chloride (Sodium Chloride 0.9%) 1,000 mls @ 75 mls/hr IV .[id number] [facility] Stop: 07/28/17 16:43 Last Admin: 07/27/17 17:11 Dose: 75 mls/hr Insulin Human Lispro (Humalog) 0 units SC Q6H [facility] PRN Reason: Protocol Last Admin: 07/28/17 01:55 Dose: Not Given Levalbuterol HCl (Xopenex) 0.63 mg INH RQ8 [facility] Last Admin: 07/28/17 07:35 Dose: 0.63 mg Levalbuterol HCl (Xopenex) 0.63 mg INH Q4H PRN PRN Reason: Shortness of Breath Metoprolol Tartrate (Lopressor) 2.5 mg IVP Q6 [facility] Last Admin: 07/28/17 03:40 Dose: 2.5 mg Ondansetron HCl (Zofran Inj) 4 mg IVP Q6H PRN PRN Reason: Nausea/Vomiting Last Admin: 07/28/17 01:59 Dose: 4 mg Tiotropium [place] (Spiriva) 18 mcg INH DAILY [facility] Last Admin: 07/27/17 13:41 Dose: 18 mcg - Labs Labs: 07/28/17 05:40 07/28/17 05:40 PT 13.5 Seconds (9.8-13.1) H 07/25/17 21:02 INR 1.2 (0.9-1.2) 07/25/17 21:02 APTT 60.4 Seconds (25.6-37.1) H D 07/28/17 05:40 - Constitutional Appears: Non-toxic, No Acute Distress - Head Exam Head Exam: ATRAUMATIC, NORMAL INSPECTION, NORMOCEPHALIC - Eye Exam Eye Exam: EOMI, Normal appearance, PERRL Pupil Exam: NORMAL ACCOMODATION - ENT Exam ENT Exam: Mucous Membranes Moist, Normal Exam - Neck Exam Neck Exam: Full ROM, Normal Inspection - Respiratory Exam Respiratory Exam: Clear to Ausculation Bilateral, Rhonchi, NORMAL BREATHING PATTERN. absent: Rales, Wheezes, Respiratory Distress - Cardiovascular Exam Cardiovascular Exam: Tachycardia, Irregular Rhythm. absent: JVD - GI/Abdominal Exam GI & Abdominal Exam: Distended, Soft, Tenderness (epigastric ), Normal Bowel Sounds - Rectal Exam Rectal Exam: Deferred - Extremities Exam Extremities Exam: Full ROM, Normal Capillary Refill, Normal Inspection. absent : Calf Tenderness, Pedal Edema Additional comments: LLE and LUE with keith bandage in place - Back Exam Back Exam: NORMAL INSPECTION - Neurological Exam Neurological Exam: Alert, Awake Additional comments: left facial droop left arm numbnes - Psychiatric Exam Psychiatric exam: Normal Affect - Skin Skin Exam: Dry, Normal Color, Warm Assessment and Plan - Assessment and Plan (Free Text) Assessment: 77-year-old man,former heavy cigarette smoker with a longstanding , COPD, atrial fibrillation, history of PE and DVt s/p IVC filter on Pradaxa , DM , HTN brought to ER for evaluation after a fall from 5 flights of stairs. As per patient he was taking the stairs up to his apartment when he felt left arm and left leg weakness and numbness. He fell down the stairs and sustained multiple injuries . He was brought to the ED and a code stroke was called for left sided weakness and an initial NIHSS of 8. CT scan of the head did not show any acute findings and CTA of the head/neck was negative for intracranial thrombus, but was found to have a pulmonary embolism on left main and descending pulmonary artery . He was started on heparin drip and admitted to ICU . Imaging of pelvis , left arm , wrist , neck all showed no fractures except left ankle non displaced malleolar fracture . Neuro was consulted He continues to have left sided numbness, but most of the weakness has resolved. He continues to have left facial droop , dysarthria resolved. At present in ICU unit , afib on monitor with uncontrolled rate patient could not tolerate the MRI 1. Acute CVA presented with left facial droop, dysarthria,left side numbness and weakness. At present left facial droop and left side numbness persists. Neuro eval appreciated Allow permissive hypertension patient passed swallow eval Continue Statin, ASA patient could not tolerate MRI head. MRA neck showed 30-40 % stenotic lesion to left carotid bifurcation F/u Echo Glycemic control PT/OT / speech eval 2. Subacute PE patient has history of PE , DVT IVC filter and was on Pradaxa Continue heparin drip for now As per neuro can switch to eliquist once heparin drip is discontinued 3. ARF improved, most likely prerenal Continue IVF BUN/cr 23/1.3 medications dosed to renal function 4. A fib with RVR rate uncontrolled patient has history of chronic afib and was on metoprolol and cardizem at home both metoprolol and cardizem on hold to allow permissive hypertension Given Digoxin yesterday total 1 mg PO and started on Digoxin 0.25 mg po daily HR today ranging as high as 160 Will load with Amiodarone 150 mg IV and than will start on amiodarone drip cardiology consult appreciated f/u echo report 5.DM2 started diet accuchecks, insulin coverage f/u Hgb A1c 6. Non displaced left malleolar Ankle Fx pain control podiatry consult appreciated NWB to LLE 7. COPD (chronic obstructive pulmonary disease) with rhonchi today pulmonary consulted changed Duonebs to xopenex Started mucomyst and spiriva as per pulmonary 8. Rule out ileus and urinary retention patient with nausea, difficulty urinating and epifgastric discomfort F/u Abdominal flat xray Bladder US Zofran PRN 9. DVT prophylaxis Acute Heparin drip
[2017-07-28] MEDS ORDERED: Amiodarone 900 MG in Dextrose 5% In Water 500 ML IVPB SCH ×2 (09:15→09:17)
[2017-07-28] MEDS ORDERED: Amiodarone 150mg/3 ml vial ONE (09:16)
[2017-07-28] MEDS: Digoxin 0.05 mg/mL Elixir 5mL PO SCH (09:40)
[2017-07-28] MEDS: Sodium Chloride 0.9% 1,000 ML IV SCH (09:44)
[2017-07-28] MEDS: Tiotropium 18 mcg Cap For Inhalation INH SCH (09:46)
--- NOTE | 2017-07-28 10:52 | CP.PCM.PN ---
Subjective - Date & Time of Evaluation Date of Evaluation: 07/28/17 Time of Evaluation: 10:00 - Subjective Subjective: Pt's HR still elevated have added Metoprolol pt c/o nausea/no appetite Abdomen tympanic, BS hypoactive ++passing gas pt may need to be NPO Objective - Vital Signs/Intake and Output Vital Signs (last 24 hours): Temp Pulse Resp BP Pulse Ox 98.8 F 124 H 22 158/109 H 98 07/28/17 08:00 07/28/17 10:00 07/28/17 10:00 07/28/17 10:00 07/28/17 10:00 Intake and Output: 07/28/17 07/28/17 06:59 18:59 Intake Total 450 Output Total 200 100 Balance 250 -100 - Medications Medications: Current Medications Acetaminophen (Tylenol 325 Mg Supp) 325 mg [place] Q6 PRN PRN Reason: Fever >100.4 F Acetaminophen (Tylenol 325mg Tab) 650 mg PO Q6 PRN PRN Reason: Pain, moderate (4-7) Last Admin: 07/27/17 16:25 Dose: 650 mg Acetylcysteine (Mucomyst 10% 4ml) 2 ml IH RBID [facility] Last Admin: 07/28/17 07:36 Dose: Not Given Atorvastatin Calcium (Lipitor) 40 mg PO DAILY [facility] Last Admin: 07/28/17 09:41 Dose: 40 mg Digoxin (Lanoxin Elixir Soln) 0.25 mg PO DAILY [facility] Last Admin: 07/28/17 09:40 Dose: 0.25 mg Famotidine (Pepcid) 20 mg PO BID [facility] Last Admin: 07/28/17 09:41 Dose: 20 mg Hydromorphone HCl (Dilaudid) 0.5 mg IVP Q2 PRN PRN Reason: Pain, moderate (4-7) Stop: 07/28/17 17:38 Last Admin: 07/28/17 04:22 Dose: 0.5 mg Heparin Sodium/Dextrose (Heparin 25,000 Units/250ml In D5w) 25,000 units in 250 mls @ 12 mls/hr IV .[id number] [facility] PRN Reason: Protocol Last Titration: 07/27/17 22:50 Dose: 13 mls/hr Sodium Chloride (Sodium Chloride 0.9%) 1,000 mls @ 75 mls/hr IV .[id number] [facility] Stop: 07/28/17 16:43 Last Admin: 07/28/17 09:44 Dose: 75 mls/hr Amiodarone HCl 450 mg/ (Dextrose) 259 mls @ 34.53 mls/hr IVPB .Q7H31M [facility]; 1 MG /MIN PRN Reason: Protocol Last Admin: 07/28/17 09:50 Dose: 34.53 mls/hr Insulin Human Lispro (Humalog) 0 units SC Q6H [facility] PRN Reason: Protocol Last Admin: 07/28/17 01:55 Dose: Not Given Lactulose (Enulose) 20 gm PO DAILY PRN PRN Reason: Constipation Levalbuterol HCl (Xopenex) 0.63 mg INH RQ8 [facility] Last Admin: 07/28/17 07:35 Dose: 0.63 mg Levalbuterol HCl (Xopenex) 0.63 mg INH Q4H PRN PRN Reason: Shortness of Breath Ondansetron HCl (Zofran Inj) 4 mg IVP Q6H PRN PRN Reason: Nausea/Vomiting Last Admin: 07/28/17 09:49 Dose: 4 mg Tiotropium [place] (Spiriva) 18 mcg INH DAILY [facility] Last Admin: 07/28/17 09:46 Dose: 18 mcg - Labs Labs: 07/28/17 05:40 07/28/17 05:40 PT 13.5 Seconds (9.8-13.1) H 07/25/17 21:02 INR 1.2 (0.9-1.2) 07/25/17 21:02 APTT 60.4 Seconds (25.6-37.1) H D 07/28/17 05:40 Assessment and Plan (1) CVA (cerebral vascular accident) Status: Acute (2) Left fibular fracture Status: Acute (3) COPD (chronic obstructive pulmonary disease) Status: Chronic (4) DM2 (diabetes mellitus, type 2) Status: Chronic
[2017-07-28] MEDS: Acetylcysteine 20% Inhal Soln (4ml) INH SCH (12:00)
[2017-07-28] MEDS: Heparin 25,000units in D5W 25,000 UNITS/250 ML BAG IV SCH (12:26)
[2017-07-28] MEDS: Amiodarone 900 MG in Dextrose 5% In Water 500 ML IVPB SCH (16:52)
--- NOTE | 2017-07-28 17:04 | CP.PCM.PN ---
Subjective - Date & Time of Evaluation Date of Evaluation: 07/28/17 Time of Evaluation: 16:52 - Subjective Subjective: Mr. Cruz was seen and examined today at bedside in the ICU. He was asleep and his family was in the room. We discussed the underlying conditions and his current status. He continues to complain of left leg pain and states that his back pain is slightly better. According to nursing, the patient has not had a bowel movement since being in the hospital. I discussed stopping opiates and trying to use NSAIDs for the pain. Objective - Vital Signs/Intake and Output Vital Signs (last 24 hours): Temp Pulse Resp BP Pulse Ox 96.5 F L 114 H 23 147/74 98 07/28/17 16:00 07/28/17 16:00 07/28/17 16:00 07/28/17 16:00 07/28/17 16:00 Intake and Output: 07/28/17 07/28/17 06:59 18:59 Intake Total 450 1555 Output Total 200 100 Balance 250 1455 - Medications Medications: Current Medications Acetaminophen (Tylenol 325 Mg Supp) 325 mg [place] Q6 PRN PRN Reason: Fever >100.4 F Acetaminophen (Tylenol 325mg Tab) 650 mg PO Q6 PRN PRN Reason: Pain, moderate (4-7) Last Admin: 07/27/17 16:25 Dose: 650 mg Acetylcysteine (Acetylcysteine 20%) 2 ml INH RBID [facility] Last Admin: 07/28/17 12:00 Dose: 2 ml Atorvastatin Calcium (Lipitor) 40 mg PO DAILY [facility] Last Admin: 07/28/17 09:41 Dose: 40 mg Digoxin (Lanoxin Elixir Soln) 0.25 mg PO DAILY [facility] Last Admin: 07/28/17 09:40 Dose: 0.25 mg Famotidine (Pepcid) 20 mg PO BID [facility] Last Admin: 07/28/17 09:41 Dose: 20 mg Heparin Sodium/Dextrose (Heparin 25,000 Units/250ml In D5w) 25,000 units in 250 mls @ 12 mls/hr IV .[id number] [facility] PRN Reason: Protocol Last Admin: 07/28/17 12:26 Dose: 13 mls/hr Amiodarone HCl 450 mg/ (Dextrose) 259 mls @ 34.53 mls/hr IVPB .Q7H31M [facility]; 1 MG /MIN PRN Reason: Protocol Last Admin: 07/28/17 09:50 Dose: 34.53 mls/hr Amiodarone HCl 900 mg/ (Dextrose) 518 mls @ 17.26 mls/hr IVPB .Q24H [facility]; 0.5 MG /MIN PRN Reason: Protocol Stop: 07/29/17 16:46 Ibuprofen (Motrin Tab) 600 mg PO Q8 PRN PRN Reason: Pain, Mild (1-3) Insulin Human Lispro (Humalog) 0 units SC Q6H [facility] PRN Reason: Protocol Last Admin: 07/28/17 12:30 Dose: 3 units Ketorolac Tromethamine (Toradol) 15 mg IVP Q6H PRN PRN Reason: Pain, moderate (4-7) Lactulose (Enulose) 20 gm PO DAILY PRN PRN Reason: Constipation Last Admin: 07/28/17 14:44 Dose: 20 gm Levalbuterol HCl (Xopenex) 0.63 mg INH RQ8 [facility] Last Admin: 07/28/17 07:35 Dose: 0.63 mg Levalbuterol HCl (Xopenex) 0.63 mg INH Q4H PRN PRN Reason: Shortness of Breath Last Admin: 07/28/17 12:00 Dose: 0.63 mg Ondansetron HCl (Zofran Inj) 4 mg IVP Q6H PRN PRN Reason: Nausea/Vomiting Last Admin: 07/28/17 09:49 Dose: 4 mg Tiotropium [place] (Spiriva) 18 mcg INH DAILY [facility] Last Admin: 07/28/17 09:46 Dose: 18 mcg - Labs Labs: 07/28/17 05:40 07/28/17 05:40 PT 13.5 Seconds (9.8-13.1) H 07/25/17 21:02 INR 1.2 (0.9-1.2) 07/25/17 21:02 APTT 51.1 Seconds (25.6-37.1) H D 07/28/17 12:30 - Neurological Exam Neurological Exam: Alert, Awake, CN II-XII Intact, Oriented x3 Neuro motor strength exam: Left Upper Extremity: 3, Right Upper Extremity: 5, Left Lower Extremity: 3, Right Lower Extremity: 5 Additional comments: NIHSS = 5 Assessment and Plan (1) CVA (cerebral vascular accident) Assessment & Plan: Will repeat CT head to evaluate for stroke status since he cannot tolerate the MRI. I recommend starting Eliquis at 5 mg BID and stopping Heparin if the CT head does not show any hemorrhagic conversion. For severe pain, we can try a one time dose of Toradol 15 mg IV. This should be used sparingly since he is also on anticoagulation for the potential PE. But, constipation and changes in his mental status due to opiates are another concern. Tylenol does not seem to be helping his pain. Status: Acute
[2017-07-28] MEDS: Magnesium Oxide 400 mg Tab UD PO SCH (17:06)
[2017-07-29] MEDS: Insulin Lispro (humaLOG) 100 Units/ml Inj SC SCH ×4 (01:37→22:07)
[2017-07-29 05:07] LABS: HEMATOCRIT 36.7 % (35.0-51.0); MEAN CELL VOLUME 95.1 fl (80.0-94.0); MEAN CORPUSCULAR HEMOGLOBIN 31.7 pg (27.0-31.0); MEAN CORPUSCULAR HGB CONC 33.3 g/dL (33.0-37.0); RED CELL DISTRIBUTION WIDTH 14.4 % (11.5-14.5); WHITE BLOOD COUNT 8.8 K/uL (4.8-10.8)
[2017-07-29 05:18] LABS: BLOOD UREA NITROGEN 17 mg/dl (9-20); CALCIUM 8.2 mg/dL (8.4-10.2); CARBON DIOXIDE 25 mmol/L (22-30); CHLORIDE 105 mmol/L (98-107); GFR AFRICAN-AMERICAN > 60; GLUCOSE,RANDOM 162 mg/dL (75-110); POTASSIUM 4.4 MMOL/L (3.6-5.0); SODIUM 138 mmol/l (132-148)
--- NOTE | 2017-07-29 08:30 | PN ---
DATE: 07/28/2017 CRITICAL CARE PROGRESS NOTE LOCATION: Patient in ICU, bed 425. SUBJECTIVE: The patient is seen and evaluated at the bedside. Events since admission noted. Past medical, surgical, and social history reviewed. Nursing notes and other consultants' note reviewed. A 77-year-old male with history of chronic obstructive pulmonary disease, diabetes mellitus type 2, atrial fibrillation, prior deep venous thrombosis/PE, status post IVC filter, admitted through emergency room on 07/25/2017, complaining of left upper extremity and left lower extremity weakness, status post fall and sustained nondisplaced fracture of left fibula. Overnight, afebrile. Telemetry, atrial fibrillation with rapid ventricular response, given digoxin for rate control. PHYSICAL EXAMINATION: VITAL SIGNS: Blood pressure 147 to 155/74 to 99, respiratory rate 25, oxygen saturation 98%. Intake 1555, output on 300, positive balance 1255. Weight 210 pounds. HEAD, EYE, EAR, NOSE AND THROAT: Left facial droop, oral mucosa dry. Extraocular muscles are intact. Pupils equal, round, reactive to light, and accommodation. CHEST: Bilateral breath sounds. Clear to auscultation. Scattered rhonchi bilaterally. HEART: Rhythm irregular, tachycardic. No audible murmur. ABDOMEN: Bowel sounds present. Soft, mild tenderness in the epigastric area. No rebound or tenderness. EXTREMITIES: Full range of motion. NEUROLOGICAL: Left lower extremity and left upper extremity with Jesus bandage in place. Alert, awake, follows commands appropriate. Noted left arm numbness. SKIN: Without rash. LABORATORY DATA: WBC 6.7, hemoglobin 12.6, hematocrit 37.7, platelet count 129. PTT 51.1. SMA-7: Sodium 140, potassium 5, chloride 105, CO2 of 26, blood urea nitrogen 17, creatinine 1.1, glucose 185. Urinalysis: Leuko esterase negative, wbc less than 1, alcohol level less than 10. Microbiology: Blood culture, no growth reported. MRA of neck: [id number] appearing stenotic lesion at the level of the left carotid bifurcation extending into the proximal left internal carotid artery. IMPRESSION AND PLAN: 1. Neurological: Acute cerebrovascular accident, admitted with left facial droop, dysarthria, and left-sided numbness and weakness. Seen by Neurology consult. Recommend a repeat CT head, status post swallow evaluation, continue statin and aspirin. Suspected subacute pulmonary embolism on intravenous heparin, currently status post inferior vena cava filter for history of pulmonary embolism in the past. As per neuro, can switch to Eliquis once heparin is discontinued. 2. Acute renal failure, improved. 3. History of atrial fibrillation with rapid ventricular response. Continue digoxin and amiodarone. Appreciate cardiology input. Beta ines on hold secondary to consent about permissive hypertension and reduction in blood pressure from metoprolol. 4. Diabetes mellitus type 2. Accu-check with regular insulin coverage, maintain blood sugar less than 180. 5. Nondisplaced malleolar fracture, left. Pain, analgesic as needed. Podiatry consult noted. Nonweightbearing to left lower extremity. 6. History of chronic obstructive pulmonary disease, continue DuoNeb, Xopenex 0.63 mg q. 8 hours, Spiriva and Mucomyst. 7. Rule out ileus, urinary retention. Zofran as needed. Bladder ultrasound. Follow up abdominal x-ray. 8. Continue heparin drip to cover for deep venous thrombosis prophylaxis. Nuno Spain MD
[2017-07-29] MEDS: Heparin 25,000units in D5W 25,000 UNITS/250 ML BAG IV SCH (08:48)
[2017-07-29] MEDS: Acetylcysteine 20% Inhal Soln (4ml) INH SCH (08:53)
[2017-07-29] MEDS: Levalbuterol 0.63 MG/3 ML Inhal Soln UD INH SCH ×3 (08:53→23:32)
[2017-07-29] MEDS ORDERED: Dexamethasone 10 MG in Sodium Chloride 0.9% 50 ML IV ONE (08:57)
[2017-07-29] MEDS ORDERED: Magnesium Sulfate 2 gm/50 ml 2 GM/50 ML BAG IVPB ONE (09:00)
--- NOTE | 2017-07-29 09:03 | CP.PCM.PN ---
Subjective - Date & Time of Evaluation Date of Evaluation: 07/29/17 Time of Evaluation: 09:01 - Subjective Subjective: Mr. Cruz was seen and examined at the bedside in the ICU. He is alert, oriented in all spheres. He claims of having severe headache in his right temporal area. He has the ecchymosis noted in his right temporal area s/p fall. The pain is non-radiating with pain scale 7/10. He further claims of having poor appetite, but no vomiting. He also complains of pain in his left arm and left ankle. The patient is on Toradol as needed. There was no untoward events overnight. Objective - Vital Signs/Intake and Output Vital Signs (last 24 hours): Temp Pulse Resp BP Pulse Ox 98.1 F 121 H 19 130/110 H 97 07/29/17 08:00 07/29/17 08:00 07/29/17 08:00 07/29/17 08:00 07/29/17 08:00 Intake and Output: 07/29/17 07/29/17 06:59 18:59 Intake Total 450 Output Total 400 Balance 50 - Medications Medications: Current Medications Acetaminophen (Tylenol 325 Mg Supp) 325 mg [place] Q6 PRN PRN Reason: Fever >100.4 F Acetaminophen (Tylenol 325mg Tab) 650 mg PO Q6 PRN PRN Reason: Pain, moderate (4-7) Last Admin: 07/27/17 16:25 Dose: 650 mg Acetylcysteine (Acetylcysteine 20%) 2 ml INH RBID [facility] Last Admin: 07/29/17 08:53 Dose: 2 ml Atorvastatin Calcium (Lipitor) 40 mg PO DAILY [facility] Last Admin: 07/28/17 09:41 Dose: 40 mg Digoxin (Lanoxin Elixir Soln) 0.25 mg PO DAILY [facility] Last Admin: 07/28/17 09:40 Dose: 0.25 mg Docusate Sodium (Colace) 100 mg PO BID [facility] Famotidine (Pepcid) 20 mg PO BID [facility] Last Admin: 07/28/17 17:01 Dose: 20 mg Amiodarone HCl 450 mg/ (Dextrose) 259 mls @ 34.53 mls/hr IVPB .Q7H31M [facility]; 1 MG /MIN PRN Reason: Protocol Last Admin: 07/28/17 17:07 Dose: Not Given Amiodarone HCl 900 mg/ (Dextrose) 518 mls @ 17.26 mls/hr IVPB .Q24H [facility]; 0.5 MG /MIN PRN Reason: Protocol Stop: 07/29/17 16:46 Last Admin: 07/28/17 16:52 Dose: 17.26 mls/hr Heparin Sodium/Dextrose (Heparin 25,000 Units/250ml In D5w) 25,000 units in 250 mls @ 17 mls/hr IV .[id number] [facility] PRN Reason: Protocol Last Admin: 07/29/17 08:48 Dose: 17 mls/hr Magnesium Sulfate (Magnesium Sulfate 2 Gm/50 Ml Water) 2 gm in 50 mls @ 50 mls/ hr IVPB ONCE ONE PRN Reason: 2 GM/HR Stop: 07/29/17 09:59 Dexamethasone 10 mg/ Sodium (Chloride) 51 mls @ 100 mls/hr IV ONCE ONE Stop: 07/29/17 09:26 Valproate Sodium 500 mg/ (Sodium Chloride) 105 mls @ 0 mls/hr IVPB ONCE ONE PRN Reason: As Directed Stop: 07/29/17 08:59 Insulin Human Lispro (Humalog) 0 units SC Q6H [facility] PRN Reason: Protocol Last Admin: 07/29/17 01:37 Dose: Not Given Ketorolac Tromethamine (Toradol) 15 mg IVP Q6H PRN PRN Reason: Pain, moderate (4-7) Last Admin: 07/29/17 01:24 Dose: 15 mg Lactulose (Enulose) 20 gm PO DAILY PRN PRN Reason: Constipation Last Admin: 07/28/17 14:44 Dose: 20 gm Levalbuterol HCl (Xopenex) 0.63 mg INH RQ8 [facility] Last Admin: 07/29/17 08:53 Dose: 0.63 mg Levalbuterol HCl (Xopenex) 0.63 mg INH Q4H PRN PRN Reason: Shortness of Breath Last Admin: 07/28/17 12:00 Dose: 0.63 mg Magnesium Oxide (Mag-Ox) 400 mg PO BID [facility] Last Admin: 07/28/17 17:06 Dose: 400 mg Metoclopramide HCl (Reglan) 5 mg IVP Q6 PRN PRN Reason: Nausea/Vomiting Last Admin: 07/29/17 06:45 Dose: 5 mg Tiotropium [place] (Spiriva) 18 mcg INH DAILY [facility] Last Admin: 07/28/17 09:46 Dose: 18 mcg - Labs Labs: 07/29/17 04:20 07/29/17 04:20 PT 13.5 Seconds (9.8-13.1) H 07/25/17 21:02 INR 1.2 (0.9-1.2) 07/25/17 21:02 APTT 32.1 Seconds (25.6-37.1) D 07/29/17 04:20 - Constitutional Appears: No Acute Distress - Head Exam Head Exam: ATRAUMATIC - Neurological Exam Neurological Exam: Alert, Awake, CN II-XII Intact, Oriented x3 Neuro motor strength exam: Left Upper Extremity: 4, Right Upper Extremity: 5, Left Lower Extremity: 4, Right Lower Extremity: 5 Additional comments: He answer questions appropriately and follows commands. Sensation remains intact. Assessment and Plan - Assessment and Plan (Free Text) Assessment: CVA: Case discussed with Dr. Slaughter, will repeat CT of the head without since patient unable to tolerate MRI. headache: Case discussed with Dr. Slaughter, recommends Magnesium 2 gm. IVPB for 1 dose, Decadron 10 mg IV for 1 dose, and Depakote 500 mg IVPB for 1 dose. Follow up repeat CT of the head.
--- NOTE | 2017-07-29 09:05 | CP.PCM.PN ---
Subjective - Date & Time of Evaluation Date of Evaluation: 07/29/17 Time of Evaluation: 08:51 - Subjective Subjective: EMR reviewed, interim events noted. Remains in ICU on cardiac surgeon. Still in a fib with RVR, non-sustained, 6 beat VT yesterday. Still no BM since admission. + flatus. Nausea and headache complaints. Given Reglan for former, may be related to latter. BP and SpO2 have remained stable. Afebrile. Labs reviewed, stable. Awake, talkative, following commands. Speech is fluent, memory intact. Ecchymosis over right frontal area more pronounced. Neck is supple and trachea midline, no visible JVD. No dullness on percussion of the anterior chest wall. Breath sounds are present bilaterally, equally diminished. Scattered sonorous rhonchi in lower lobes bilaterally. Dry to medium rales in lower lobes posteriorly, no wheezing or bronchial breathing. Left ankle dressing intact, right ankle w/o edema. No cyanosis. Left forearm and wrist dressing intact. Obstructive series (bedside, my read); distended stomach, gas present in small and large bowel, no obstruction. CXR done with obstructive series; elevated left hemidiaphragm (large stomach bubble), maybe small basal atelectasis on left, right lung w/o effusion or consolidation, increased BV markings bilaterally (chronic). Needs alternate analgesia. Tried one dose of ketorolac. Parenteral acetaminophen being requested. OOB to chair today. Followup CT brain. Cautious use of nebulizer rx (arrhythmia stimulation). If needed he can probably go to telemetry (need cardiac OK). Objective - Vital Signs/Intake and Output Vital Signs (last 24 hours): Temp Pulse Resp BP Pulse Ox 98.1 F 121 H 19 130/110 H 97 07/29/17 08:00 07/29/17 08:00 07/29/17 08:00 07/29/17 08:00 07/29/17 08:00 Intake and Output: 07/28/17 07/29/17 23:59 11:59 Intake Total 1555 450 Output Total 200 400 Balance 1355 50 - Medications Medications: Current Medications Acetaminophen (Tylenol 325 Mg Supp) 325 mg [place] Q6 PRN PRN Reason: Fever >100.4 F Acetaminophen (Tylenol 325mg Tab) 650 mg PO Q6 PRN PRN Reason: Pain, moderate (4-7) Last Admin: 12/02/17 16:25 Dose: 650 mg Acetylcysteine (Acetylcysteine 20%) 2 ml INH RBID [facility] Last Admin: 07/28/17 12:00 Dose: 2 ml Atorvastatin Calcium (Lipitor) 40 mg PO DAILY [facility] Last Admin: 07/28/17 09:41 Dose: 40 mg Digoxin (Lanoxin Elixir Soln) 0.25 mg PO DAILY [facility] Last Admin: 07/28/17 09:40 Dose: 0.25 mg Docusate Sodium (Colace) 100 mg PO BID MUNA Famotidine (Pepcid) 20 mg PO BID [facility] Last Admin: 07/28/17 17:01 Dose: 20 mg Amiodarone HCl 450 mg/ (Dextrose) 259 mls @ 34.53 mls/hr IVPB .Q7H31M MUNA; 1 MG /MIN PRN Reason: Protocol Last Admin: 07/28/17 17:07 Dose: Not Given Amiodarone HCl 900 mg/ (Dextrose) 518 mls @ 17.26 mls/hr IVPB .Q24H MUNA; 0.5 MG /MIN PRN Reason: Protocol Stop: 07/29/17 16:46 Last Admin: 07/28/17 16:52 Dose: 17.26 mls/hr Heparin Sodium/Dextrose (Heparin 25,000 Units/250ml In D5w) 25,000 units in 250 mls @ 17 mls/hr IV .[id number] [facility] PRN Reason: Protocol Last Admin: 07/29/17 08:48 Dose: 17 mls/hr Insulin Human Lispro (Humalog) 0 units SC Q6H [facility] PRN Reason: Protocol Last Admin: 07/29/17 01:37 Dose: Not Given Ketorolac Tromethamine (Toradol) 15 mg IVP Q6H PRN PRN Reason: Pain, moderate (4-7) Last Admin: 07/29/17 01:24 Dose: 15 mg Lactulose (Enulose) 20 gm PO DAILY PRN PRN Reason: Constipation Last Admin: 07/28/17 14:44 Dose: 20 gm Levalbuterol HCl (Xopenex) 0.63 mg INH RQ8 [facility] Last Admin: 07/28/17 23:40 Dose: 0.63 mg Levalbuterol HCl (Xopenex) 0.63 mg INH Q4H PRN PRN Reason: Shortness of Breath Last Admin: 07/28/17 12:00 Dose: 0.63 mg Magnesium Oxide (Mag-Ox) 400 mg PO BID [facility] Last Admin: 07/28/17 17:06 Dose: 400 mg Metoclopramide HCl (Reglan) 5 mg IVP Q6 PRN PRN Reason: Nausea/Vomiting Last Admin: 07/29/17 06:45 Dose: 5 mg Tiotropium [place] (Spiriva) 18 mcg INH DAILY [facility] Last Admin: 07/28/17 09:46 Dose: 18 mcg - Labs Labs: 07/29/17 04:20 07/29/17 04:20 PT 13.5 Seconds (9.8-13.1) H 07/25/17 21:02 INR 1.2 (0.9-1.2) 07/25/17 21:02 APTT 32.1 Seconds (25.6-37.1) D 07/29/17 04:20 Assessment and Plan (1) CVA (cerebral vascular accident) Status: Acute (2) Pulmonary embolism Status: Acute (3) Closed left ankle fracture Status: Acute (4) Multiple injuries due to trauma Status: Acute (5) COPD (chronic obstructive pulmonary disease) Status: Chronic (6) DM2 (diabetes mellitus, type 2) Status: Chronic
[2017-07-29] MEDS: Magnesium Oxide 400 mg Tab UD PO SCH ×2 (09:40→17:26)
[2017-07-29] MEDS: Digoxin 0.05 mg/mL Elixir 5mL PO SCH (09:40)
[2017-07-29] MEDS: Tiotropium 18 mcg Cap For Inhalation INH SCH (09:41)
[2017-07-29] MEDS ORDERED: Valproate 500 MG in Sodium Chloride 0.9% 100 ML IVPB ONE (09:45)
--- NOTE | 2017-07-29 11:37 | CP.PCM.PN ---
Subjective - Date & Time of Evaluation Date of Evaluation: 07/29/17 Time of Evaluation: 11:00 - Subjective Subjective: Pt seen and examined Afebrile denies CP no SOB sl headache no change in vision left sided numbness ewakness resolved also complains of nausea and some abd discomfort On Heparin drip and Amiodarone drip Objective - Vital Signs/Intake and Output Vital Signs (last 24 hours): Temp Pulse Resp BP Pulse Ox 98.1 F 128 H 18 132/62 98 07/29/17 08:00 07/29/17 09:00 07/29/17 09:00 07/29/17 09:00 07/29/17 09:00 Intake and Output: 07/29/17 07/29/17 06:59 18:59 Intake Total 450 Output Total 400 Balance 50 - Medications Medications: Current Medications Acetaminophen (Tylenol 325 Mg Supp) 325 mg [place] Q6 PRN PRN Reason: Fever >100.4 F Acetaminophen (Tylenol 325mg Tab) 650 mg PO Q6 PRN PRN Reason: Pain, moderate (4-7) Last Admin: 07/27/17 16:25 Dose: 650 mg Acetylcysteine (Acetylcysteine 20%) 2 ml INH RBID [facility] Last Admin: 07/29/17 08:53 Dose: 2 ml Atorvastatin Calcium (Lipitor) 40 mg PO DAILY [facility] Last Admin: 07/29/17 09:40 Dose: 40 mg Digoxin (Lanoxin Elixir Soln) 0.25 mg PO DAILY [facility] Last Admin: 07/29/17 09:40 Dose: 0.25 mg Docusate Sodium (Colace) 100 mg PO BID [facility] Last Admin: 07/29/17 09:37 Dose: 100 mg Famotidine (Pepcid) 20 mg PO BID [facility] Last Admin: 07/29/17 09:41 Dose: 20 mg Amiodarone HCl 450 mg/ (Dextrose) 259 mls @ 34.53 mls/hr IVPB .Q7H31M MUNA; 1 MG /MIN PRN Reason: Protocol Last Admin: 07/28/17 17:07 Dose: Not Given Amiodarone HCl 900 mg/ (Dextrose) 518 mls @ 17.26 mls/hr IVPB .Q24H MUNA; 0.5 MG /MIN PRN Reason: Protocol Stop: 07/29/17 16:46 Last Admin: 07/28/17 16:52 Dose: 17.26 mls/hr Heparin Sodium/Dextrose (Heparin 25,000 Units/250ml In D5w) 25,000 units in 250 mls @ 17 mls/hr IV .[id number] MUNA PRN Reason: Protocol Last Admin: 07/29/17 08:48 Dose: 17 mls/hr Insulin Human Lispro (Humalog) 0 units SC Q6H MUNA PRN Reason: Protocol Last Admin: 07/29/17 09:01 Dose: 2 units Ketorolac Tromethamine (Toradol) 15 mg IVP Q6H PRN PRN Reason: Pain, moderate (4-7) Last Admin: 07/29/17 01:24 Dose: 15 mg Lactulose (Enulose) 20 gm PO DAILY PRN PRN Reason: Constipation Last Admin: 07/28/17 14:44 Dose: 20 gm Levalbuterol HCl (Xopenex) 0.63 mg INH RQ8 [facility] Last Admin: 07/29/17 08:53 Dose: 0.63 mg Levalbuterol HCl (Xopenex) 0.63 mg INH Q4H PRN PRN Reason: Shortness of Breath Last Admin: 07/28/17 12:00 Dose: 0.63 mg Magnesium Oxide (Mag-Ox) 400 mg PO BID [facility] Last Admin: 07/29/17 09:40 Dose: 400 mg Metoclopramide HCl (Reglan) 5 mg IVP Q6 PRN PRN Reason: Nausea/Vomiting Last Admin: 07/29/17 06:45 Dose: 5 mg Tiotropium [place] (Spiriva) 18 mcg INH DAILY [facility] Last Admin: 07/29/17 09:41 Dose: 18 mcg - Labs Labs: 07/29/17 04:20 07/29/17 04:20 PT 13.5 Seconds (9.8-13.1) H 07/25/17 21:02 INR 1.2 (0.9-1.2) 07/25/17 21:02 APTT 32.1 Seconds (25.6-37.1) D 07/29/17 04:20 - Constitutional Appears: No Acute Distress, Chronically Ill - Head Exam Head Exam: NORMOCEPHALIC - Eye Exam Eye Exam: EOMI, Normal appearance Pupil Exam: NORMAL ACCOMODATION - ENT Exam ENT Exam: Mucous Membranes Dry, Normal External Ear Exam - Neck Exam Neck Exam: Full ROM. absent: Meningismus - Respiratory Exam Respiratory Exam: Rales, Rhonchi, NORMAL BREATHING PATTERN. absent: Wheezes, Respiratory Distress - Cardiovascular Exam Cardiovascular Exam: Tachycardia, Irregular Rhythm, +S1, +S2 - GI/Abdominal Exam GI & Abdominal Exam: Soft, Normal Bowel Sounds. absent: Tenderness - Extremities Exam Extremities Exam: Normal Capillary Refill Additional comments: Left foot wrapped in VIDHI bandage - Neurological Exam Neurological Exam: Alert, Awake, Oriented x3 Neuro motor strength exam: Left Upper Extremity: 4, Right Upper Extremity: 4, Left Lower Extremity: 4, Right Lower Extremity: 4 - Psychiatric Exam Psychiatric exam: Normal Mood - Skin Skin Exam: Dry, Normal Color, Warm Assessment and Plan (1) Acute CVA (cerebrovascular accident) Status: Acute - Assessment and Plan (Free Text) Assessment: 77-year-old man,former heavy cigarette smoker with a longstanding , COPD, atrial fibrillation, history of PE and DVt s/p IVC filter on Pradaxa , DM , HTN brought to ER for evaluation after a fall from 5 flights of stairs. As per patient he was taking the stairs up to his apartment when he felt left arm and left leg weakness and numbness. He fell down the stairs and sustained multiple injuries . He was brought to the ED and a code stroke was called for left sided weakness and an initial NIHSS of 8. CT scan of the head did not show any acute findings and CTA of the head/neck was negative for intracranial thrombus, but was found to have a pulmonary embolism on left main and descending pulmonary artery . He was started on heparin drip and admitted to ICU . Imaging of pelvis , left arm , wrist , neck all showed no fractures except left ankle non displaced malleolar fracture . Neuro was consulted He continues to have left sided numbness, but most of the weakness has resolved. He continues to have left facial droop , dysarthria resolved. At present in ICU unit , afib on monitor with uncontrolled rate patient could not tolerate the MRI 1. Acute CVA presented with left facial droop, dysarthria,left side numbness and weakness. At present left facial droop and left side numbness persists. Neuro eval appreciated Allow permissive hypertension patient passed swallow eval Continue Statin, ASA patient could not tolerate MRI head. MRA neck showed 30-40 % stenotic lesion to left carotid bifurcation Rpt Head CT showed Acute right parietal lobe infarct F/u Echo Glycemic control PT/OT / speech eval 2. Subacute PE patient has history of PE , DVT s/p IVC filter and was on Pradaxa Continue heparin drip for now As per neuro can switch to eliquis once heparin drip is discontinued 3. ARF improved, most likely prerenal Continue IVF Crea 1.9 on admission now 1.0 medications dosed to renal function 4. A fib with RVR rate uncontrolled patient has history of chronic afib and was on metoprolol and cardizem at home both metoprolol and cardizem on hold to allow permissive hypertension started on Digoxin 0.25 mg po daily On Amiodarone drip - will change to PO cardiology consult appreciated f/u echo report 5.DM2 started diet accuchecks, insulin coverage f/u Hgb A1c 6. Non displaced left malleolar Ankle Fx pain control podiatry consult appreciated NWB to LLE 7. COPD (chronic obstructive pulmonary disease) with rhonchi today pulmonary consulted changed Duonebs to xopenex Started mucomyst and spiriva as per pulmonary 8. Ileus patient with nausea, difficulty urinating and epigastric discomfort Abdominal Obst xray : Ileus Bladder US Zofran PRN start Simethicone 9. DVT prophylaxis Acute Heparin drip
--- NOTE | 2017-07-29 14:54 | RAD ---
PROCEDURE: Radiographs of the chest and abdomen (obstructive series) HISTORY: Abdominal pain/Distention/constipation COMPARISON: No prior. TECHNIQUE: AP radiograph of the chest, with upright and supine radiographs of the abdomen. FINDINGS: CHEST: Lungs: Clear. Cardiovascular: Cardiomegaly. No evidence of acute, significant cardiovascular disease. Pleura: No pleural fluid. No pneumothorax. Other findings: None. ABDOMEN AND PELVIS: Bowel: Gastric distention of uncertain etiology/ significance. Mild distention of proximal small bowel the overall appearance suggests ileus. Free air: None. Bones: Unremarkable. Other findings: None. IMPRESSION: Unremarkable radiographs of chest and abdomen. No evidence of mechanical bowel obstruction.
[2017-07-29] MEDS ORDERED: Simethicone 80 mg Chewtab PO PRN (15:34)
--- NOTE | 2017-07-29 16:13 | CT ---
PROCEDURE: CT HEAD WITHOUT CONTRAST. HISTORY: ischemic stroke COMPARISON: July 25, 2017 CT brain July 25, 2017 CT head neck TECHNIQUE: Axial computed tomography images were obtained through the head/brain without intravenous contrast. Coronal and sagittal reconstructed images. Radiation dose: Total exam DLP = 913.70 mGy-cm. This CT exam was performed using one or more of the following dose reduction techniques: Automated exposure control, adjustment of the mA and/or kV according to patient size, and/or use of iterative reconstruction technique. FINDINGS: HEMORRHAGE: No intracranial hemorrhage. BRAIN: Acute, nonhemorrhagic area of cortical infarction posterior right parietal lobe. This corresponds to branch of the right posterior cerebral artery evidence of old left parieto-occipital infarct unchanged. VENTRICLES: Unremarkable. No hydrocephalus. CALVARIUM: Unremarkable. PARANASAL SINUSES: Unremarkable as visualized. No significant inflammatory changes. MASTOID AIR CELLS: Unremarkable as visualized. No inflammatory changes. OTHER FINDINGS: Scalp contusion right supra orbital region without underlying or adjacent calvarial fracture or intracranial abnormality. This is consistent with history kindly provided by 8 nurse involved with the care and management of this individual IMPRESSION: Acute nonhemorrhagic infarct right posterior parietal region. Critical results protocol: Study completed 15:19 Results conveyed verbally at 16:05. With call back per institutional protocol with nurse involved in the care and management this individual Tanika Duque Interpretation finalized and available for review 16:07
[2017-07-29] MEDS: Amiodarone 900 MG in Dextrose 5% In Water 500 ML IVPB SCH (17:31)
--- NOTE | 2017-07-29 20:38 | PN ---
PROCEDURE DATE: 07/29/2017 CRITICAL CARE PROGRESS NOTE LOCATION: The patient in ICU, bed 425. SUBJECTIVE: The patient is seen and evaluated at the bedside. Events since admission noted. Past medical, surgical, and social history reviewed. Nursing notes and other consultants' note reviewed. A 77-year-old male with chronic obstructive pulmonary disease, diabetes mellitus type 2, chronic atrial fibrillation, prior deep venous thrombosis/PE, status post IVC filter, admitted complaining of left upper extremity and left lower extremity weakness, status post fall at home, sustained nondisplaced fracture of left fibula, also noted to have subacute PE. Currently on heparin drip. Repeat CT chest pending. Overnight, normotensive, afebrile. Telemetry shows some atrial fibrillation with rapid ventricular response. Noted to have shot run of non-sustained V-tach/SVT with aberrancy. This morning, the patient felt nausea while undergoing physical therapy, no vomiting, now had a large bowel movement with less abdominal discomfort. PHYSICAL EXAMINATION: VITAL SIGNS: Temperature 97.5, heart rate of 160, blood pressure 134/79, mean arterial pressure 97, respiratory rate 18 to 23, oxygen saturation 95% to 97% on oxygen supplement 3 L nasal cannula. Intake 2004, output 700, positive balance 1305. Weight 210 pounds. HEAD, EYE, EAR, NOSE AND THROAT: Pupils reactive to light and accommodation. Extraocular muscles are intact. Conjunctivae pink. Sclerae white. NECK: Supple. Bruits on the right temporal area, more prominent than admission. CHEST: Bilateral breath sounds. Scattered rhonchi bilaterally. Fine crepitations at the bases. HEART: Rhythm irregular, tachycardic. No audible murmur. ABDOMEN: Bowel sounds present, soft, mild distention improved after the bowel movement. EXTREMITIES: Full range of motion. NEUROLOGICAL: Left lower extremity and left upper extremity with Jesus bandage in place. Alert, awake, follows commands appropriately. Noted left arm numbness and left facial droop. SKIN: Without rash. CURRENT MEDICATIONS: Amiodarone drip discontinued on p.o. 200 mg daily, Lipitor 40 mg daily, digoxin 0.25 mg p.o. daily, Colace 100 mg twice daily, Pepcid 20 mg twice daily, heparin drip at 17 mL/hour titrating as per protocol to maintain PTT 1.5 times control, Accu-Chek with regular insulin coverage, Toradol 15 mg IV q.6 p.r.n. for pain, lactulose 20 gm p.o. daily, Xopenex 0.63 mg q.8 hours, magnesium oxide 400 mg p.o. b.i.d., Reglan 5 mg IV q.6 p.r.n., Lipitor 40 mg p.o. daily, . IMPRESSION: 1. Neurologic: Alert, awake, oriented to name, place and time. Acute cerebrovascular accident with left facial droop. Dysarthria improved. Left-sided numbness and weakness. Noted right frontal bruise. A repeat CT head ordered. Given Decadron 10 mg x1, Keppra 500 mg IV x1. Follow up CT head. 2. Acute renal failure, improved. History of paroxysmal atrial fibrillation with rapid ventricular response. Currently on digoxin and amiodarone. Follow digoxin level as the patient is on amiodarone and can increase the digoxin level. Current digoxin level is 1. Appreciate Cardiology followup. Remains blood pressure in the acceptable range. 3. Diabetes mellitus type 2. Continue Accu-Chek with regular insulin coverage. 4. Non-displaced malleolar fracture, left, on conservative management. Seen by Podiatry in consult. 5. Chronic obstructive pulmonary disease, on DuoNeb 0.63 mg q.8, Spiriva, and Mucomyst. Continue heparin until the CT chest is repeated to rule out acute pulmonary embolism. 5. Abdominal x-ray shows gastric and bowel ileus. However, the patient just had a large bowel movement. We will continue to monitor for further nausea and vomiting. Continue Zofran and Reglan as needed. Nuno Spain MD
[2017-07-30] MEDS: Heparin 25,000units in D5W 25,000 UNITS/250 ML BAG IV SCH (01:39)
[2017-07-30 04:26] LABS: BASO % 0.1 % (0.0-2.0); HEMATOCRIT 36.3 % (35.0-51.0); LYMPH # 0.5 K/uL (1.0-4.3); LYMPH % 6.5 % (20.0-40.0); MEAN CELL VOLUME 94.1 fl (80.0-94.0); MEAN CORPUSCULAR HEMOGLOBIN 31.6 pg (27.0-31.0); MEAN CORPUSCULAR HGB CONC 33.6 g/dL (33.0-37.0); MEAN PLATELET VOLUME 9.1 fl (7.2-11.7); MONO # 0.3 K/uL (0.0-0.8); MONO % 3.3 % (0.0-10.0); NEUT # 7.2 K/uL (1.8-7.0); NEUT % 90.1 % (50.0-75.0); NRBC % 0.1 % (0.0-0.0); PLATELET COUNT 169 K/uL (130-400); RED CELL DISTRIBUTION WIDTH 14.8 % (11.5-14.5)
[2017-07-30 04:27] LABS: ALB/GLOB RATIO 0.9 (1.0-2.1); ALKALINE PHOSPHATASE 62 U/L (38-126); ALT/SGPT 43 U/L (21-72); AST/SGOT 46 U/L (17-59); BILIRUBIN,TOTAL 1.1 mg/dl (0.2-1.3); BLOOD UREA NITROGEN 21 mg/dl (9-20); CALCIUM 8.7 mg/dL (8.4-10.2); CARBON DIOXIDE 23 mmol/L (22-30); CHLORIDE 106 mmol/L (98-107); GFR AFRICAN-AMERICAN > 60; GLUCOSE,RANDOM 196 mg/dL (75-110); POTASSIUM 4.8 MMOL/L (3.6-5.0); SODIUM 137 mmol/l (132-148); TOTAL PROTEIN 6.8 G/DL (6.3-8.2)
[2017-07-30 05:33] LABS: NEUTROPHIL 84 % (42-75); TOTAL CELLS COUNTED 100
[2017-07-30] MEDS: Insulin Lispro (humaLOG) 100 Units/ml Inj SC SCH ×4 (06:43→22:39)
[2017-07-30] MEDS: Levalbuterol 0.63 MG/3 ML Inhal Soln UD INH SCH (08:07)
[2017-07-30] MEDS: Acetylcysteine 20% Inhal Soln (4ml) INH SCH (08:07)
--- NOTE | 2017-07-30 08:44 | RAD ---
HISTORY: NA. COMPARISON: No prior studies available for comparison. FINDINGS: Note that the current study is limited by motion artifact. BOWEL: Distended loop of bowel left upper quadrant of the abdomen likely represents air-filled stomach. BONES: Multilevel degenerative spondylosis of the lower thoracic and lumbar spine. OTHER FINDINGS: None. IMPRESSION: Limited motion degraded study. Findings consistent with distended air-filled stomach. No obstruction seen.
--- NOTE | 2017-07-30 09:11 | CP.PCM.PN ---
Subjective - Date & Time of Evaluation Date of Evaluation: 07/30/17 Time of Evaluation: 09:08 - Subjective Subjective: Podiatry Consult Note- Dr. Roche 77 y/o male seen and evaluated at bedside on acute floor for non-displaced left ankle fracture sustained secondary to a fall. Patient denies of any acute overnight events. Patient is AAOx3 and is in NAD. Patient denies of any pain to the left lower extremity. Denies of any new complains. Denies of any recent F/N/ V/C/SOB/CP. Objective - Vital Signs/Intake and Output Vital Signs (last 24 hours): Temp Pulse Resp BP Pulse Ox 98 F 88 20 161/93 H 96 07/30/17 08:00 07/30/17 08:00 07/30/17 08:00 07/30/17 08:00 07/30/17 08:00 Intake and Output: 07/30/17 07/30/17 06:59 18:59 Intake Total 250 Balance 250 - Medications Medications: Current Medications Acetaminophen (Tylenol 325 Mg Supp) 325 mg [place] Q6 PRN PRN Reason: Fever >100.4 F Acetaminophen (Tylenol 325mg Tab) 650 mg PO Q6 PRN PRN Reason: Pain, moderate (4-7) Last Admin: 07/27/17 16:25 Dose: 650 mg Acetylcysteine (Acetylcysteine 20%) 2 ml INH RBID [facility] Last Admin: 07/30/17 08:07 Dose: Not Given Amiodarone HCl (Cordarone) 200 mg PO DAILY [facility] Last Admin: 07/29/17 17:24 Dose: 200 mg Apixaban (Eliquis) 5 mg PO BID [facility] PRN Reason: Protocol Stop: 08/06/17 09:01 Atorvastatin Calcium (Lipitor) 40 mg PO DAILY [facility] Last Admin: 07/29/17 09:40 Dose: 40 mg Digoxin (Lanoxin Elixir Soln) 0.25 mg PO DAILY [facility] Last Admin: 07/29/17 09:40 Dose: 0.25 mg Docusate Sodium (Colace) 100 mg PO BID [facility] Last Admin: 07/29/17 17:31 Dose: Not Given Famotidine (Pepcid) 20 mg PO BID [facility] Last Admin: 07/29/17 17:26 Dose: 20 mg Amiodarone HCl 450 mg/ (Dextrose) 259 mls @ 34.53 mls/hr IVPB .Q7H31M MUNA; 1 MG /MIN PRN Reason: Protocol Last Admin: 07/28/17 17:07 Dose: Not Given Insulin Human Lispro (Humalog) 0 units SC Q6H MUNA PRN Reason: Protocol Last Admin: 07/30/17 06:45 Dose: 2 units Lactulose (Enulose) 20 gm PO DAILY PRN PRN Reason: Constipation Last Admin: 07/28/17 14:44 Dose: 20 gm Levalbuterol HCl (Xopenex) 0.63 mg INH RQ8 [facility] Last Admin: 07/30/17 08:07 Dose: Not Given Levalbuterol HCl (Xopenex) 0.63 mg INH Q4H PRN PRN Reason: Shortness of Breath Last Admin: 07/28/17 12:00 Dose: 0.63 mg Magnesium Oxide (Mag-Ox) 400 mg PO BID [facility] Last Admin: 07/29/17 17:26 Dose: 400 mg Metoclopramide HCl (Reglan) 5 mg IVP Q6 PRN PRN Reason: Nausea/Vomiting Last Admin: 07/29/17 06:45 Dose: 5 mg Simethicone (Mylicon Chew Tab) 80 mg PO QID PRN PRN Reason: Flatulence Last Admin: 07/29/17 17:24 Dose: 80 mg Tiotropium [place] (Spiriva) 18 mcg INH DAILY [facility] Last Admin: 07/29/17 09:41 Dose: 18 mcg - Labs Labs: 07/30/17 04:00 07/30/17 04:00 PT 13.5 Seconds (9.8-13.1) H 07/25/17 21:02 INR 1.2 (0.9-1.2) 07/25/17 21:02 APTT 57.9 Seconds (25.6-37.1) H D 07/30/17 04:00 - Constitutional Appears: Well, Non-toxic, No Acute Distress - Extremities Exam Extremities Exam: absent: Calf Tenderness Additional comments: Wynn compressive dressing is clean, dry and intact. Cap refill time is < 3 sec to all digits, Active ROM intact at MTPJ - Neurological Exam Neurological Exam: Alert, Awake, Oriented x3 - Psychiatric Exam Psychiatric exam: Normal Affect, Normal Mood Assessment and Plan - Assessment and Plan (Free Text) Assessment: 77 y/o male seen and evaluated for left non-displaced lateral malleolus fracture Plan: Patient examined and evaluated in ICU Charts, labs, vitals reviewed X-rays reviewed- nondisplaced lateral malleolus fracture left Discussed plan in detail with attending Dr. Melchor Wynn Compression dressing to left LE maintained Keep dressing clean, dry, intact. Patient to be NWB to the LLE Will continue to follow while in house
--- NOTE | 2017-07-30 10:06 | CP.PCM.PN ---
Subjective - Date & Time of Evaluation Date of Evaluation: 07/30/17 Time of Evaluation: 09:00 - Subjective Subjective: Pt feels better tolerated PO diet nausea resolved abd pain resolved was previously constipated - now having diarrhea after he was given so laxative ( had 5 BMs) no YOUNG no Dizziness focal neuro deficits resolved Pt's weakness and numbness improved, dysarthria improved no CP no SOB Objective - Vital Signs/Intake and Output Vital Signs (last 24 hours): Temp Pulse Resp BP Pulse Ox 98 F 88 20 161/93 H 96 07/30/17 08:00 07/30/17 08:00 07/30/17 08:00 07/30/17 08:00 07/30/17 08:00 Intake and Output: 07/30/17 07/30/17 06:59 18:59 Intake Total 250 Balance 250 - Medications Medications: Current Medications Acetaminophen (Tylenol 325 Mg Supp) 325 mg [place] Q6 PRN PRN Reason: Fever >100.4 F Acetaminophen (Tylenol 325mg Tab) 650 mg PO Q6 PRN PRN Reason: Pain, moderate (4-7) Last Admin: 07/27/17 16:25 Dose: 650 mg Acetylcysteine (Acetylcysteine 20%) 2 ml INH RBID [facility] Last Admin: 07/30/17 08:07 Dose: Not Given Amiodarone HCl (Cordarone) 200 mg PO DAILY [facility] Last Admin: 07/29/17 17:24 Dose: 200 mg Apixaban (Eliquis) 5 mg PO BID [facility] PRN Reason: Protocol Stop: 08/06/17 09:01 Atorvastatin Calcium (Lipitor) 40 mg PO DAILY [facility] Last Admin: 07/29/17 09:40 Dose: 40 mg Digoxin (Lanoxin Elixir Soln) 0.25 mg PO DAILY [facility] Last Admin: 07/29/17 09:40 Dose: 0.25 mg Docusate Sodium (Colace) 100 mg PO BID [facility] Last Admin: 07/29/17 17:31 Dose: Not Given Famotidine (Pepcid) 20 mg PO BID [facility] Last Admin: 07/29/17 17:26 Dose: 20 mg Amiodarone HCl 450 mg/ (Dextrose) 259 mls @ 34.53 mls/hr IVPB .Q7H31M [facility]NA; 1 MG /MIN PRN Reason: Protocol Last Admin: 07/28/17 17:07 Dose: Not Given Insulin Human Lispro (Humalog) 0 units SC Q6H [facility] PRN Reason: Protocol Last Admin: 07/30/17 06:45 Dose: 2 units Lactulose (Enulose) 20 gm PO DAILY PRN PRN Reason: Constipation Last Admin: 07/28/17 14:44 Dose: 20 gm Levalbuterol HCl (Xopenex) 0.63 mg INH RQ8 [facility] Last Admin: 07/30/17 08:07 Dose: Not Given Levalbuterol HCl (Xopenex) 0.63 mg INH Q4H PRN PRN Reason: Shortness of Breath Last Admin: 07/28/17 12:00 Dose: 0.63 mg Magnesium Oxide (Mag-Ox) 400 mg PO BID [facility] Last Admin: 07/29/17 17:26 Dose: 400 mg Metoclopramide HCl (Reglan) 5 mg IVP Q6 PRN PRN Reason: Nausea/Vomiting Last Admin: 07/29/17 06:45 Dose: 5 mg Simethicone (Mylicon Chew Tab) 80 mg PO QID PRN PRN Reason: Flatulence Last Admin: 07/29/17 17:24 Dose: 80 mg Tiotropium [place] (Spiriva) 18 mcg INH DAILY [facility] Last Admin: 07/29/17 09:41 Dose: 18 mcg - Labs Labs: 07/30/17 04:00 07/30/17 04:00 PT 13.5 Seconds (9.8-13.1) H 07/25/17 21:02 INR 1.2 (0.9-1.2) 07/25/17 21:02 APTT 57.9 Seconds (25.6-37.1) H D 07/30/17 04:00 - Constitutional Appears: No Acute Distress, Chronically Ill - Head Exam Head Exam: NORMOCEPHALIC - Eye Exam Eye Exam: EOMI, Normal appearance Pupil Exam: NORMAL ACCOMODATION - ENT Exam ENT Exam: Mucous Membranes Dry, Normal External Ear Exam - Neck Exam Neck Exam: Full ROM. absent: Meningismus - Respiratory Exam Respiratory Exam: Rales, Rhonchi, NORMAL BREATHING PATTERN. absent: Wheezes, Respiratory Distress - Cardiovascular Exam Cardiovascular Exam: Tachycardia, Irregular Rhythm, +S1, +S2 - GI/Abdominal Exam GI & Abdominal Exam: Sl distended, soft, Normal Bowel Sounds. absent: Tenderness - Extremities Exam Extremities Exam: Normal Capillary Refill Additional comments: Left foot wrapped in VIDHI bandage - Neurological Exam Neurological Exam: Alert, Awake, Oriented x3 Neuro motor strength exam: Left Upper Extremity: 4, Right Upper Extremity: 4, Left Lower Extremity: 4, Right Lower Extremity: 4 - Psychiatric Exam Psychiatric exam: Normal Mood - Skin Skin Exam: Dry, Normal Color, Warm ecchymoses Assessment and Plan (1) Acute CVA (cerebrovascular accident) Status: Acute (2) Pulmonary embolism Status: Acute (3) ARF (acute renal failure) Status: Acute (4) Closed left ankle fracture Status: Acute (5) Multiple injuries due to trauma Status: Acute (6) COPD (chronic obstructive pulmonary disease) Status: Chronic (7) DM2 (diabetes mellitus, type 2) Status: Chronic - Assessment and Plan (Free Text) Assessment: 77-year-old man,former heavy cigarette smoker with a longstanding , COPD, atrial fibrillation, history of PE and DVt s/p IVC filter on Pradaxa , DM , HTN brought to ER for evaluation after a fall from 5 flights of stairs. As per patient he was taking the stairs up to his apartment when he felt left arm and left leg weakness and numbness. He fell down the stairs and sustained multiple injuries . He was brought to the ED and a code stroke was called for left sided weakness and an initial NIHSS of 8. CT scan of the head did not show any acute findings and CTA of the head/neck was negative for intracranial thrombus, but was found to have a pulmonary embolism on left main and descending pulmonary artery . He was started on heparin drip and admitted to ICU . Imaging of pelvis , left arm , wrist , neck all showed no fractures except left ankle non displaced malleolar fracture . Neuro was consulted His numbness and weakness has improved . Afib on monitor with uncontrolled rate - 80-120s 1. Acute CVA presented with left facial droop, dysarthria,left side numbness and weakness. At present most of his weakness and numbness improved Neuro eval appreciated Allow permissive hypertension patient passed swallow eval Continue Statin, ASA patient could not tolerate MRI head. MRA neck showed 30-40 % stenotic lesion to left carotid bifurcation Rpt Head CT showed Acute right parietal lobe infarct PT/OT / speech eval 2. Subacute PE patient has history of PE , DVT s/p IVC filter and was on Pradaxa ( failure on Pradaxa?) Started on heparin drip Wull switch to Eliquis 5 mg bid 3. ARF improved, most likely prerenal Continue IVF Crea 1.9 on admission now 1.0 4. A fib with RVR rate uncontrolled patient has history of chronic afib and was on metoprolol and cardizem at home both metoprolol and cardizem on hold to allow permissive hypertension as per Neuro , ok to slowly restart BB - start Toprol XL 25 mg daily started on Digoxin 0.25 mg po daily Was on Amiodarone drip - changed to PO cardiology consult appreciated 5.DM2 started diet accuchecks, insulin coverage f/u Hgb A1c 6. Non displaced left malleolar Ankle Fx pain control ankle wrapped in VIDHI bandage podiatry consult appreciated NWB to LLE PT consult 7. COPD (chronic obstructive pulmonary disease) pulmonary consulted changed Duonebs to xopenex Started mucomyst and spiriva as per pulmonary 8. Ileus Abdominal Obst xray : Ileus Zofran PRN start Simethicone + BM 9. DVT prophylaxis Acute Eliquis
[2017-07-30] MEDS: Digoxin 0.05 mg/mL Elixir 5mL PO SCH (10:29)
[2017-07-30] MEDS: Tiotropium 18 mcg Cap For Inhalation INH SCH (10:30)
--- NOTE | 2017-07-30 11:04 | CP.PCM.PN ---
Subjective - Date & Time of Evaluation Date of Evaluation: 07/30/17 Time of Evaluation: 10:57 - Subjective Subjective: Seen on rounds in the telemetry unit. The patient is currently lying in bed semierect with no complaints. He did have bowel movement yesterday after being out of bed and feels improved in that regard today. His speech is fluent although he appears to be slightly confused at times. He is moving all 4 extremities but coordination in the left upper extremity is still lacking. The left lower extremity remains in an immobilizing dressing and the left toes are warm to touch. Capillary refill appears satisfactory. No cyanosis. The pharynx is pink and mucous membranes are moist. The neck is supple and trachea is midline. No neck vein distention. Mild hyperresonance to percussion of the anterior chest wall bilaterally. Breath sounds are diminished bilaterally. Occasional dry rales heard in the lower lobes posteriorly. No audible wheezing. No bronchial breathing. The heart sounds are distant and the rhythm is irregular. He remains tachycardic at 110+ beats per minute. The abdomen is still slightly distended although improved from the day before. Bowel sounds are present. Percussion note is tympanitic. CT scan repeated yesterday showed no hemorrhagic conversion of the right parietal infarct. There is noted and old left parieto-occipital infarct as well. Started on liquids this morning 5 mg by mouth twice a day. Heparin is discontinued. We'll request patient be out of bed as tolerated and begin physical therapy. Will request V/Q lung scan to clarify whether there has been a pulmonary embolism. Metoprolol at low dose will be instituted today to control heart rate. His home medications included Cardizem 240 mg once daily as well as 100 mg of metoprolol daily We'll discontinue scheduled levalbuterol in attempt to help reduce the cardiac rhythm. Acetylcysteine will be discontinued as well. Continue ipratropium bromide once daily. Objective - Vital Signs/Intake and Output Vital Signs (last 24 hours): Temp Pulse Resp BP Pulse Ox 98 F 88 20 161/93 H 96 07/30/17 08:00 07/30/17 10:28 07/30/17 08:00 07/30/17 10:28 07/30/17 08:00 Intake and Output: 07/29/17 07/30/17 23:59 11:59 Intake Total 611 Balance 611 - Medications Medications: Current Medications Acetaminophen (Tylenol 325 Mg Supp) 325 mg [place] Q6 PRN PRN Reason: Fever >100.4 F Acetaminophen (Tylenol 325mg Tab) 650 mg PO Q6 PRN PRN Reason: Pain, moderate (4-7) Last Admin: 07/27/17 16:25 Dose: 650 mg Amiodarone HCl (Cordarone) 200 mg PO DAILY [facility] Last Admin: 07/30/17 10:28 Dose: 200 mg Apixaban (Eliquis) 5 mg PO BID [facility] PRN Reason: Protocol Stop: 08/06/17 09:01 Last Admin: 07/30/17 10:29 Dose: 5 mg Atorvastatin Calcium (Lipitor) 40 mg PO DAILY [facility] Last Admin: 07/30/17 10:30 Dose: 40 mg Digoxin (Lanoxin Elixir Soln) 0.25 mg PO DAILY [facility] Last Admin: 07/30/17 10:29 Dose: 0.25 mg Famotidine (Pepcid) 20 mg PO BID [facility] Last Admin: 07/30/17 10:30 Dose: 20 mg Insulin Human Lispro (Humalog) 0 units SC Q6H [facility] PRN Reason: Protocol Last Admin: 07/30/17 06:45 Dose: 2 units Lactulose (Enulose) 20 gm PO DAILY PRN PRN Reason: Constipation Last Admin: 07/28/17 14:44 Dose: 20 gm Levalbuterol HCl (Xopenex) 0.63 mg INH Q4H PRN PRN Reason: Shortness of Breath Last Admin: 07/28/17 12:00 Dose: 0.63 mg Metoclopramide HCl (Reglan) 5 mg IVP Q6 PRN PRN Reason: Nausea/Vomiting Last Admin: 07/29/17 06:45 Dose: 5 mg Metoprolol Succinate (Toprol Xl) 25 mg PO DAILY [facility] Simethicone (Mylicon Chew Tab) 80 mg PO QID PRN PRN Reason: Flatulence Last Admin: 07/29/17 17:24 Dose: 80 mg Tiotropium [place] (Spiriva) 18 mcg INH DAILY [facility] Last Admin: 07/30/17 10:30 Dose: 18 mcg - Labs Labs: 07/30/17 04:00 07/30/17 04:00 PT 13.5 Seconds (9.8-13.1) H 07/25/17 21:02 INR 1.2 (0.9-1.2) 07/25/17 21:02 APTT 57.9 Seconds (25.6-37.1) H D 07/30/17 04:00 Assessment and Plan (1) CVA (cerebral vascular accident) Status: Acute (2) Pulmonary embolism Status: Acute (3) Closed left ankle fracture Status: Acute (4) Multiple injuries due to trauma Status: Acute (5) COPD (chronic obstructive pulmonary disease) Status: Chronic (6) DM2 (diabetes mellitus, type 2) Status: Chronic
[2017-07-30] MEDS: Metoprolol Succinate 25 mg XL Tab PO SCH (12:10)
--- NOTE | 2017-07-30 18:51 | CARD ---
APPROVED REPORT EXAM: Two-dimensional and M-mode echocardiogram with Doppler and color Doppler. Other Information Quality : FairRhythm : NSR Technically limited study due to smoking. INDICATION CVA/TIA 2D DIMENSIONS IVSd1.01 (0.7-1.1cm)LVDd4.88 (3.9-5.9cm) LVOT Diameter2.28 (1.8-2.4cm)PWd0.95 (0.7-1.1cm) IVSs1.18 (0.8-1.2cm)LVDs3.48 (2.5-4.0cm) FS (%) 28.6 %PWs1.09 (0.8-1.2cm) Mitral Valve E/A ratio0.0 TDI E/Lateral E'0.0E/Medial E'0.0 Tricuspid Valve TR Peak [id number] Peak Gr.32mmHg [id number] LEFT VENTRICLE The left ventricle is normal size. There is normal left ventricular wall thickness. Left ventricle systolic function is mildly impaired. The Ejection Fraction is - 45-50%. Generalized - mild hypokinesia. The patient is in atrial fibrillation. No left ventricle thrombus noted on this study. There is no ventricular septal defect visualized. There is no left ventricular aneurysm. There is no mass noted in the left ventricle. RIGHT VENTRICLE The right ventricle is at the upper limits of normal in size. There is normal right ventricular wall thickness. The right ventricular systolic function is normal. ATRIA The left atrium is mildly dilated. There is no thrombus suspected in the left atrium. The right atrium size is at the upper limits of normal. The interatrial septum is intact with no evidence for an atrial septal defect. AORTIC VALVE The aortic valve is mildly thickened. No aortic regurgitation is present. There is no aortic valvular stenosis. MITRAL VALVE The mitral valve leaflets are mildly thickened. There is no evidence of mitral valve prolapse. There is no mitral valve stenosis. Color doppler studies show artifact but there appears to be at least mild mitral regurgitation. TRICUSPID VALVE The tricuspid valve is normal in structure. Color doppler studies show artefact but there appears to be at least mild tricuspid regurgitation. The right ventricular systolic pressure is - 41 mmHg. There is no tricuspid valve prolapse or vegetation. There is no tricuspid valve stenosis. PULMONIC VALVE The pulmonic valve is not well visualized. Doppler studies of the PV were not performed. GREAT VESSELS The aortic root is normal in size. The IVC is normal in size and collapses >50% with inspiration. PERICARDIAL EFFUSION There is a small anterior echo free space. There is no pleural effusion. <Conclusion> The study was a technically difficult study. The left ventricle is normal in size and wall thickness. Left ventricle systolic function is mildly impaired. The Ejection Fraction is - 45-50%. The left atrium is mildly dilated. The mitral and aortic valves are mildly thickened but not stenotic. There is at least mild regurgitation of the mitral and tricuspid valves.
--- NOTE | 2017-07-30 19:13 | CP.PCM.PN ---
Subjective - Date & Time of Evaluation Date of Evaluation: 07/30/17 Time of Evaluation: 14:00 - Subjective Subjective: Mr. Cruz was seen and examined today at bedside. He was was sitting up and complained of slight left leg pain. There were no acute events overnight. Objective - Vital Signs/Intake and Output Vital Signs (last 24 hours): Temp Pulse Resp BP Pulse Ox 98.0 F 97 H 17 161/87 H 95 07/30/17 18:48 07/30/17 18:48 07/30/17 18:48 07/30/17 18:48 07/30/17 18:48 - Medications Medications: Current Medications Acetaminophen (Tylenol 325 Mg Supp) 325 mg [place] Q6 PRN PRN Reason: Fever >100.4 F Acetaminophen (Tylenol 325mg Tab) 650 mg PO Q6 PRN PRN Reason: Pain, moderate (4-7) Last Admin: 07/27/17 16:25 Dose: 650 mg Amiodarone HCl (Cordarone) 200 mg PO DAILY [facility] Last Admin: 07/30/17 10:28 Dose: 200 mg Apixaban (Eliquis) 5 mg PO BID [facility] PRN Reason: Protocol Stop: 08/06/17 09:01 Last Admin: 07/30/17 16:42 Dose: 5 mg Atorvastatin Calcium (Lipitor) 40 mg PO DAILY [facility] Last Admin: 07/30/17 10:30 Dose: 40 mg Digoxin (Lanoxin Elixir Soln) 0.25 mg PO DAILY [facility] Last Admin: 07/30/17 10:29 Dose: 0.25 mg Famotidine (Pepcid) 20 mg PO BID [facility] Last Admin: 07/30/17 16:44 Dose: 20 mg Insulin Human Lispro (Humalog) 0 units SC ACCU-CHECK [facility] PRN Reason: Protocol Lactulose (Enulose) 20 gm PO DAILY PRN PRN Reason: Constipation Last Admin: 07/28/17 14:44 Dose: 20 gm Levalbuterol HCl (Xopenex) 0.63 mg INH Q4H PRN PRN Reason: Shortness of Breath Last Admin: 07/28/17 12:00 Dose: 0.63 mg Metoclopramide HCl (Reglan) 5 mg IVP Q6 PRN PRN Reason: Nausea/Vomiting Last Admin: 07/30/17 16:44 Dose: 5 mg Metoprolol Succinate (Toprol Xl) 25 mg PO DAILY [facility] Last Admin: 07/30/17 12:10 Dose: 25 mg Simethicone (Mylicon Chew Tab) 80 mg PO QID PRN PRN Reason: Flatulence Last Admin: 07/29/17 17:24 Dose: 80 mg Tiotropium [place] (Spiriva) 18 mcg INH DAILY [facility] Last Admin: 07/30/17 10:30 Dose: 18 mcg - Labs Labs: 07/30/17 04:00 07/30/17 04:00 PT 13.5 Seconds (9.8-13.1) H 07/25/17 21:02 INR 1.2 (0.9-1.2) 07/25/17 21:02 APTT 57.9 Seconds (25.6-37.1) H D 07/30/17 04:00 - Neurological Exam Additional comments: Neurologically unchanged compared with previous examination. Assessment and Plan (1) CVA (cerebral vascular accident) Assessment & Plan: Continue current treatment plan. May start normalizing blood pressure as needed per the primary team. Plan to transfer to acute rehab when stable. Status: Acute
[2017-07-31] MEDS: Insulin Lispro (humaLOG) 100 Units/ml Inj SC SCH ×4 (06:36→22:04)
--- NOTE | 2017-07-31 08:16 | CP.PCM.PN ---
Subjective - Date & Time of Evaluation Date of Evaluation: 07/31/17 Time of Evaluation: 08:13 - Subjective Subjective: Mr. Cruz was seen and examined at the bedside. He is alert, oriented in all spheres. He states of feeling tired this morning. He denies any headache, dizziness, lightheadedness, nausea, or vomiting. He further claims of physical therapy helping him out of the bed to chair for 2 days already. There was no untoward events overnight. Objective - Vital Signs/Intake and Output Vital Signs (last 24 hours): Temp Pulse Resp BP Pulse Ox 97.4 F L 81 18 164/88 H 96 07/31/17 05:19 07/31/17 05:19 07/31/17 05:19 07/31/17 05:19 07/31/17 05:19 - Medications Medications: Current Medications Acetaminophen (Tylenol 325 Mg Supp) 325 mg [place] Q6 PRN PRN Reason: Fever >100.4 F Acetaminophen (Tylenol 325mg Tab) 650 mg PO Q6 PRN PRN Reason: Pain, moderate (4-7) Last Admin: 07/30/17 22:59 Dose: 650 mg Amiodarone HCl (Cordarone) 200 mg PO DAILY [facility] Last Admin: 07/30/17 10:28 Dose: 200 mg Apixaban (Eliquis) 5 mg PO BID [facility] PRN Reason: Protocol Stop: 08/06/17 09:01 Last Admin: 07/30/17 16:42 Dose: 5 mg Atorvastatin Calcium (Lipitor) 40 mg PO DAILY [facility] Last Admin: 07/30/17 10:30 Dose: 40 mg Digoxin (Lanoxin Elixir Soln) 0.25 mg PO DAILY [facility] Last Admin: 07/30/17 10:29 Dose: 0.25 mg Famotidine (Pepcid) 20 mg PO BID [facility] Last Admin: 07/30/17 16:44 Dose: 20 mg Insulin Human Lispro (Humalog) 0 units SC ACCU-CHECK [facility] PRN Reason: Protocol Last Admin: 07/31/17 06:36 Dose: Not Given Lactulose (Enulose) 20 gm PO DAILY PRN PRN Reason: Constipation Last Admin: 07/28/17 14:44 Dose: 20 gm Levalbuterol HCl (Xopenex) 0.63 mg INH Q4H PRN PRN Reason: Shortness of Breath Last Admin: 07/28/17 12:00 Dose: 0.63 mg Metoclopramide HCl (Reglan) 5 mg IVP Q6 PRN PRN Reason: Nausea/Vomiting Last Admin: 07/30/17 16:44 Dose: 5 mg Metoprolol Succinate (Toprol Xl) 25 mg PO DAILY [facility] Last Admin: 07/30/17 12:10 Dose: 25 mg Simethicone (Mylicon Chew Tab) 80 mg PO QID PRN PRN Reason: Flatulence Last Admin: 07/29/17 17:24 Dose: 80 mg Tiotropium [place] (Spiriva) 18 mcg INH DAILY [facility] Last Admin: 07/30/17 10:30 Dose: 18 mcg - Labs Labs: 07/30/17 04:00 07/30/17 04:00 PT 13.5 Seconds (9.8-13.1) H 07/25/17 21:02 INR 1.2 (0.9-1.2) 07/25/17 21:02 APTT 57.9 Seconds (25.6-37.1) H D 07/30/17 04:00 - Constitutional Appears: No Acute Distress - Head Exam Head Exam: ATRAUMATIC - Neurological Exam Neurological Exam: Alert, Awake, CN II-XII Intact, Oriented x3 Neuro motor strength exam: Left Upper Extremity: 4, Right Upper Extremity: 5, Left Lower Extremity: 4, Right Lower Extremity: 5 Additional comments: Neurological unchanged from previous examination. Assessment and Plan (1) CVA (cerebral vascular accident) Assessment & Plan: Case discussed with Dr. Slaughter, continue all current medical, physical, and occupational therapies. There is no new recommendation from neurology. Status: Acute
[2017-07-31] MEDS: Digoxin 0.05 mg/mL Elixir 5mL PO SCH (09:16)
[2017-07-31] MEDS: Metoprolol Succinate 25 mg XL Tab PO SCH (09:17)
[2017-07-31] MEDS: Tiotropium 18 mcg Cap For Inhalation INH SCH (09:17)
--- NOTE | 2017-07-31 09:54 | CP.PCM.PN ---
Subjective - Date & Time of Evaluation Date of Evaluation: 07/31/17 Time of Evaluation: 09:53 - Subjective Subjective: Seen on AM rounds, at the bedside. He has been quite inactive, needs encouragement to participate in activities. Vital signs remain stable. Still RVR a fib. Offers no complaints of SOB or cough. No chest discomfort. Still has unsettled abdominal feeling, poor appetite. Awaiting official reading on VQ scan, but I do not see evidence of acute PE. Low dose metoprolol has been added to the regimen for improved rate control. Chest findings remain essentially the same; No audible wheezing with very much decreased breath sounds bilaterally. Few sonorous rhonchi in dependant areas bilaterally. Needs physical therapy. Better rate control. Definitive decision about whether there was a PE or not. Discussed with hospitalist. Objective - Vital Signs/Intake and Output Vital Signs (last 24 hours): Temp Pulse Resp BP Pulse Ox 97.7 F 104 H 18 153/86 H 95 07/31/17 08:00 07/31/17 08:00 07/31/17 08:00 07/31/17 09:15 07/31/17 08:00 - Medications Medications: Current Medications Acetaminophen (Tylenol 325 Mg Supp) 325 mg [place] Q6 PRN PRN Reason: Fever >100.4 F Acetaminophen (Tylenol 325mg Tab) 650 mg PO Q6 PRN PRN Reason: Pain, moderate (4-7) Last Admin: 07/30/17 22:59 Dose: 650 mg Amiodarone HCl (Cordarone) 200 mg PO DAILY [facility] Last Admin: 07/31/17 09:15 Dose: 200 mg Apixaban (Eliquis) 5 mg PO BID [facility] PRN Reason: Protocol Stop: 08/06/17 09:01 Last Admin: 07/31/17 09:15 Dose: 5 mg Atorvastatin Calcium (Lipitor) 40 mg PO DAILY [facility] Last Admin: 07/31/17 09:16 Dose: 40 mg Digoxin (Lanoxin Elixir Soln) 0.25 mg PO DAILY [facility] Last Admin: 07/31/17 09:16 Dose: 0.25 mg Famotidine (Pepcid) 20 mg PO BID [facility] Last Admin: 07/31/17 09:16 Dose: 20 mg Insulin Human Lispro (Humalog) 0 units SC ACCU-CHECK [facility] PRN Reason: Protocol Last Admin: 07/31/17 06:36 Dose: Not Given Lactulose (Enulose) 20 gm PO DAILY PRN PRN Reason: Constipation Last Admin: 07/28/17 14:44 Dose: 20 gm Levalbuterol HCl (Xopenex) 0.63 mg INH Q4H PRN PRN Reason: Shortness of Breath Last Admin: 07/28/17 12:00 Dose: 0.63 mg Metoclopramide HCl (Reglan) 5 mg IVP Q6 PRN PRN Reason: Nausea/Vomiting Last Admin: 07/30/17 16:44 Dose: 5 mg Metoprolol Succinate (Toprol Xl) 25 mg PO DAILY [facility] Last Admin: 07/31/17 09:17 Dose: 25 mg Simethicone (Mylicon Chew Tab) 80 mg PO QID PRN PRN Reason: Flatulence Last Admin: 07/29/17 17:24 Dose: 80 mg Tiotropium [place] (Spiriva) 18 mcg INH DAILY [facility] Last Admin: 07/31/17 09:17 Dose: 18 mcg - Labs Labs: 07/30/17 04:00 07/30/17 04:00 PT 13.5 Seconds (9.8-13.1) H 07/25/17 21:02 INR 1.2 (0.9-1.2) 07/25/17 21:02 APTT 57.9 Seconds (25.6-37.1) H D 07/30/17 04:00 Assessment and Plan (1) CVA (cerebral vascular accident) Status: Acute (2) Pulmonary embolism Status: Acute (3) Closed left ankle fracture Status: Acute (4) Multiple injuries due to trauma Status: Acute (5) COPD (chronic obstructive pulmonary disease) Status: Chronic (6) DM2 (diabetes mellitus, type 2) Status: Chronic
--- NOTE | 2017-07-31 11:05 | NM ---
COMPARISON: 07.25.17 single-view chest and CT scans TECHNIQUE: 40.2 mCi technetium 99-m DTPA aerosol. 5.8 mCI technetium 99-m MAA administered intravenously. FINDINGS: VENTILATION COMPONENT: Markedly heterogeneous ventilation affecting both lungs left greater than right. PERFUSION COMPONENT: Primarily matched defects corresponding to the ventilatory abnormalities. IMPRESSION: Intermediateprobability ventilation perfusion scan for pulmonary embolism.
[2017-07-31] MEDS ORDERED: Metoprolol Succinate 25 mg XL Tab PO STA (11:19)
--- NOTE | 2017-07-31 11:34 | CP.PCM.PN ---
Subjective - Date & Time of Evaluation Date of Evaluation: 07/31/17 Time of Evaluation: 11:15 - Subjective Subjective: Pt complains of abd discomfort and nausea poor PO intake bec of this, No fever, no vomiting- previous abd xray showed Ileus Pt has been having liquid BM sine he was given Lactulose for constipation Neurologically stable denies CP no SOB Objective - Vital Signs/Intake and Output Vital Signs (last 24 hours): Temp Pulse Resp BP Pulse Ox 97.7 F 104 H 18 153/86 H 95 07/31/17 08:00 07/31/17 08:00 07/31/17 08:00 07/31/17 09:15 07/31/17 08:00 - Medications Medications: Current Medications Acetaminophen (Tylenol 325 Mg Supp) 325 mg [place] Q6 PRN PRN Reason: Fever >100.4 F Acetaminophen (Tylenol 325mg Tab) 650 mg PO Q6 PRN PRN Reason: Pain, moderate (4-7) Last Admin: 07/30/17 22:59 Dose: 650 mg Amiodarone HCl (Cordarone) 200 mg PO DAILY [facility] Last Admin: 07/31/17 09:15 Dose: 200 mg Apixaban (Eliquis) 5 mg PO BID [facility] PRN Reason: Protocol Stop: 08/06/17 09:01 Last Admin: 07/31/17 09:15 Dose: 5 mg Atorvastatin Calcium (Lipitor) 40 mg PO DAILY [facility] Last Admin: 07/31/17 09:16 Dose: 40 mg Famotidine (Pepcid) 20 mg PO BID [facility] Last Admin: 07/31/17 09:16 Dose: 20 mg Insulin Human Lispro (Humalog) 0 units SC ACCU-CHECK [facility] PRN Reason: Protocol Last Admin: 07/31/17 06:36 Dose: Not Given Levalbuterol HCl (Xopenex) 0.63 mg INH Q4H PRN PRN Reason: Shortness of Breath Last Admin: 07/28/17 12:00 Dose: 0.63 mg Metoclopramide HCl (Reglan) 5 mg IVP Q6 PRN PRN Reason: Nausea/Vomiting Last Admin: 07/30/17 16:44 Dose: 5 mg Metoprolol Succinate (Toprol Xl) 50 mg PO DAILY [facility] Metoprolol Succinate (Toprol Xl) 25 mg PO STAT [facility] Stop: 07/31/17 11:20 Simethicone (Mylicon Chew Tab) 80 mg PO QID PRN PRN Reason: Flatulence Last Admin: 07/29/17 17:24 Dose: 80 mg Tiotropium [place] (Spiriva) 18 mcg INH DAILY [facility] Last Admin: 07/31/17 09:17 Dose: 18 mcg - Labs Labs: 07/30/17 04:00 07/30/17 04:00 PT 13.5 Seconds (9.8-13.1) H 07/25/17 21:02 INR 1.2 (0.9-1.2) 07/25/17 21:02 APTT 57.9 Seconds (25.6-37.1) H D 07/30/17 04:00 - Constitutional Appears: No Acute Distress, Chronically Ill - Head Exam Head Exam: NORMOCEPHALIC - Eye Exam Eye Exam: EOMI, Normal appearance Pupil Exam: NORMAL ACCOMODATION - ENT Exam ENT Exam: Mucous Membranes Dry, Normal External Ear Exam - Neck Exam Neck Exam: Full ROM. absent: Meningismus - Respiratory Exam Respiratory Exam: Rales, Rhonchi, NORMAL BREATHING PATTERN. absent: Wheezes, Respiratory Distress - Cardiovascular Exam Cardiovascular Exam: Tachycardia, Irregular Rhythm, +S1, +S2 - GI/Abdominal Exam GI & Abdominal Exam: Sl distended, soft, Normal Bowel Sounds. absent: Tenderness - Extremities Exam Extremities Exam: Normal Capillary Refill Additional comments: Left foot wrapped in VIDHI bandage - Neurological Exam Neurological Exam: Alert, Awake, Oriented x3 Neuro motor strength exam: Left Upper Extremity: 4, Right Upper Extremity: 4, Left Lower Extremity: 4, Right Lower Extremity: 4 - Psychiatric Exam Psychiatric exam: Normal Mood - Skin Skin Exam: Dry, Normal Color, Warm ecchymoses Assessment and Plan (1) Acute CVA (cerebrovascular accident) Status: Acute (2) Pulmonary embolism Status: Acute (3) ARF (acute renal failure) Status: Acute (4) Closed left ankle fracture Status: Acute (5) Multiple injuries due to trauma Status: Acute (6) COPD (chronic obstructive pulmonary disease) Status: Chronic (7) DM2 (diabetes mellitus, type 2) Status: Chronic - Assessment and Plan (Free Text) Assessment: 77-year-old man,former heavy cigarette smoker with a longstanding , COPD, atrial fibrillation, history of PE and DVt s/p IVC filter on Pradaxa , DM , HTN brought to ER for evaluation after a fall from 5 flights of stairs. As per patient he was taking the stairs up to his apartment when he felt left arm and left leg weakness and numbness. He fell down the stairs and sustained multiple injuries . He was brought to the ED and a code stroke was called for left sided weakness and an initial NIHSS of 8. CT scan of the head did not show any acute findings and CTA of the head/neck was negative for intracranial thrombus, but was found to have a pulmonary embolism on left main and descending pulmonary artery . He was started on heparin drip and admitted to ICU . Imaging of pelvis , left arm , wrist , neck all showed no fractures except left ankle non displaced malleolar fracture . Neuro was consulted . His numbness and weakness has improved . A Fib on Tele monitor : HR 80 to low 100s 1. Acute CVA presented with left facial droop, dysarthria,left side numbness and weakness. At present most of his weakness and numbness improved Neuro eval appreciated Allowed permissive hypertension - ok now to slowly restart HTN meds as per Neuro patient passed swallow eval Continue Statin, ASA patient could not tolerate MRI head. MRA neck showed 30-40 % stenotic lesion to left carotid bifurcation Rpt Head CT showed Acute right parietal lobe infarct PT/OT / speech eval Plan to d/c pt to [facility] once mediaclly stable 2. Subacute PE patient has history of PE , DVT s/p IVC filter and was on Pradaxa ( failure on Pradaxa?) Started on heparin drip Switched to Eliquis 5 mg bid as rec by Dr Slaughter V/Q scan : indeterminate Discussed with Dr Gray - may need to eventually do CTA 3. ARF improved, most likely prerenal Continue IVF Crea 1.9 on admission now 1.0 4. A fib with RVR rate uncontrolled patient has history of chronic afib and was on metoprolol and cardizem at home both metoprolol and cardizem held to allow permissive hypertension as per Neuro , ok to slowly restart BB - started Toprol XL 50 mg daily Pt was placed on Amiodarone and Digoxin instead however unclear if Digoxin may be the etiology for pt's nausea and abd discomfort Will cont Amiodarone D/c Digoxin Increase Toprol to 50 mg and Add low dose Cardizem in am 5.DM2 started diet accuchecks, insulin coverage will hold off any oral Hypoglycemics bec pt has very poor PO intake 6. Non displaced left malleolar Ankle Fx pain control ankle wrapped in VIDHI bandage podiatry consult appreciated NWB to LLE PT consulted 7. COPD (chronic obstructive pulmonary disease) pulmonary consulted changed Duonebs to xopenex cont mucomyst and spiriva 8. Ileus Abdominal Obst xray : Ileus Pt on Reglan started Simethicone + BM 9. DVT prophylaxis Acute Eliquis
[2017-08-01 05:29] LABS: HEMATOCRIT 39.9 % (35.0-51.0); MEAN CELL VOLUME 94.6 fl (80.0-94.0); MEAN CORPUSCULAR HEMOGLOBIN 31.2 pg (27.0-31.0); RED CELL DISTRIBUTION WIDTH 14.2 % (11.5-14.5); WHITE BLOOD COUNT 8.7 K/uL (4.8-10.8)
[2017-08-01 05:55] LABS: ALB/GLOB RATIO 0.9 (1.0-2.1); BILIRUBIN,TOTAL 1.2 mg/dl (0.2-1.3); CALCIUM 8.3 mg/dL (8.4-10.2); POTASSIUM 4.4 MMOL/L (3.6-5.0); TOTAL PROTEIN 6.6 G/DL (6.3-8.2)
[2017-08-01] MEDS: Insulin Lispro (humaLOG) 100 Units/ml Inj SC SCH ×2 (06:26→14:45)
[2017-08-01] MEDS ORDERED: diltiaZEM 120 mg/24 Hours CD Cap PO SCH (09:00)
[2017-08-01] MEDS ORDERED: Metoprolol Succinate 50 mg XL Tab PO SCH (09:00)
--- NOTE | 2017-08-01 09:03 | CP.PCM.PN ---
Subjective - Date & Time of Evaluation Date of Evaluation: 08/01/17 Time of Evaluation: 08:54 - Subjective Subjective: Mr. Cruz was seen and examined at the bedside. He is alert, oriented in all spheres. He denies any headache, but feeling of generalized uncomfortable for laying most of the time in bed. He further denies any numbness, weakness. nausea , or vomiting. 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 There was no untoward events overnight. Objective - Vital Signs/Intake and Output Vital Signs (last 24 hours): Temp Pulse Resp BP Pulse Ox 98.6 F 105 H 20 164/96 H 97 08/01/17 08:27 08/01/17 08:27 08/01/17 08:27 08/01/17 08:27 08/01/17 08:27 - Medications Medications: Current Medications Acetaminophen (Tylenol 325 Mg Supp) 325 mg [place] Q6 PRN PRN Reason: Fever >100.4 F Acetaminophen (Tylenol 325mg Tab) 650 mg PO Q6 PRN PRN Reason: Pain, moderate (4-7) Last Admin: 07/30/17 22:59 Dose: 650 mg Amiodarone HCl (Cordarone) 200 mg PO DAILY [facility] Last Admin: 07/31/17 09:15 Dose: 200 mg Apixaban (Eliquis) 5 mg PO BID [facility] PRN Reason: Protocol Stop: 08/06/17 09:01 Last Admin: 07/31/17 17:19 Dose: 5 mg Atorvastatin Calcium (Lipitor) 40 mg PO DAILY [facility] Last Admin: 07/31/17 09:16 Dose: 40 mg Diltiazem HCl (Cardizem Cd) 120 mg PO DAILY [facility] Famotidine (Pepcid) 20 mg PO BID [facility] Last Admin: 07/31/17 17:20 Dose: 20 mg Insulin Human Lispro (Humalog) 0 units SC ACCU-CHECK [facility] PRN Reason: Protocol Last Admin: 08/01/17 06:26 Dose: Not Given Levalbuterol HCl (Xopenex) 0.63 mg INH Q4H PRN PRN Reason: Shortness of Breath Last Admin: 07/28/17 12:00 Dose: 0.63 mg Metoclopramide HCl (Reglan) 5 mg IVP Q6 PRN PRN Reason: Nausea/Vomiting Last Admin: 07/30/17 16:44 Dose: 5 mg Metoprolol Succinate (Toprol Xl) 50 mg PO DAILY [facility] Mupirocin (Bactroban Ointment) 1 applic TOP BID [facility] Last Admin: 07/31/17 18:44 Dose: Not Given Simethicone (Mylicon Chew Tab) 80 mg PO QID PRN PRN Reason: Flatulence Last Admin: 07/29/17 17:24 Dose: 80 mg Tiotropium [place] (Spiriva) 18 mcg INH DAILY [facility] Last Admin: 07/31/17 09:17 Dose: 18 mcg - Labs Labs: 08/01/17 04:20 08/01/17 04:20 PT 13.5 Seconds (9.8-13.1) H 07/25/17 21:02 INR 1.2 (0.9-1.2) 07/25/17 21:02 APTT 57.9 Seconds (25.6-37.1) H D 07/30/17 04:00 - Constitutional Appears: No Acute Distress - Head Exam Head Exam: ATRAUMATIC - Neurological Exam Neurological Exam: Alert, Awake, Oriented x3 Neuro motor strength exam: Left Upper Extremity: 3, Right Upper Extremity: 3, Left Lower Extremity: 5, Right Lower Extremity: 5 Additional comments: Neurological unchanged from previous examination. Assessment and Plan (1) CVA (cerebral vascular accident) Assessment & Plan: Case discussed with Dr. Slaughter, continue all current medical, physical, and occupational therapies. There is no new recommendation from neurology. Status: Acute
--- NOTE | 2017-08-01 09:48 | CP.PCM.PN ---
Subjective - Date & Time of Evaluation Date of Evaluation: 08/01/17 Time of Evaluation: 09:48 - Subjective Subjective: Seen in 413 this morning with his present. Had a BM today, but still complains of unsettled feeling with nausea and no appetite. Activity has been lacking, he needs to be strongly encouraged to participate in PT activities. Official reading on VQ scan reads 'intermediate probability'. He will need a CTA of the lungs at some time to settle the issue. He remains on Eliquis without any problem. Metoprolol increased to 50MG and Cardizem 120MG added this morning. Heart rate has responded nicely at 88 BPM. Lanoxin has been discontinued today (not given this morning). Ecchymosis over the right side of the forehead has extended slightly to the pre auricular level. His tongue is coated and the mucous membranes are dry. Neck is supple and trachea midline. Breath sounds are unchanged; diminished bilaterally w/o audible wheezing. Few dry rales in lower lobes and dependant rhonchi in lower lobes. Hopefully his nausea and stomach upset will subside. His oral intake has been poor. He needs encouragement to increase his PT. CTA of the lungs when his BUN improves. Objective - Vital Signs/Intake and Output Vital Signs (last 24 hours): Temp Pulse Resp BP Pulse Ox 98.6 F 105 H 20 164/96 H 97 08/01/17 08:27 08/01/17 08:27 08/01/17 08:27 08/01/17 08:27 08/01/17 08:27 - Medications Medications: Current Medications Acetaminophen (Tylenol 325 Mg Supp) 325 mg [place] Q6 PRN PRN Reason: Fever >100.4 F Acetaminophen (Tylenol 325mg Tab) 650 mg PO Q6 PRN PRN Reason: Pain, moderate (4-7) Last Admin: 07/30/17 22:59 Dose: 650 mg Amiodarone HCl (Cordarone) 200 mg PO DAILY [facility] Last Admin: 07/31/17 09:15 Dose: 200 mg Apixaban (Eliquis) 5 mg PO BID [facility] PRN Reason: Protocol Stop: 08/06/17 09:01 Last Admin: 07/31/17 17:19 Dose: 5 mg Atorvastatin Calcium (Lipitor) 40 mg PO DAILY [facility] Last Admin: 07/31/17 09:16 Dose: 40 mg Diltiazem HCl (Cardizem Cd) 120 mg PO DAILY [facility] Famotidine (Pepcid) 20 mg PO BID [facility] Last Admin: 07/31/17 17:20 Dose: 20 mg Insulin Human Lispro (Humalog) 0 units SC ACCU-CHECK [facility] PRN Reason: Protocol Last Admin: 08/01/17 06:26 Dose: Not Given Levalbuterol HCl (Xopenex) 0.63 mg INH Q4H PRN PRN Reason: Shortness of Breath Last Admin: 07/28/17 12:00 Dose: 0.63 mg Metoclopramide HCl (Reglan) 5 mg IVP Q6 PRN PRN Reason: Nausea/Vomiting Last Admin: 07/30/17 16:44 Dose: 5 mg Metoprolol Succinate (Toprol Xl) 50 mg PO DAILY [facility] Mupirocin (Bactroban Ointment) 1 applic TOP BID [facility] Last Admin: 07/31/17 18:44 Dose: Not Given Simethicone (Mylicon Chew Tab) 80 mg PO QID PRN PRN Reason: Flatulence Last Admin: 07/29/17 17:24 Dose: 80 mg Tiotropium [place] (Spiriva) 18 mcg INH DAILY [facility] Last Admin: 07/31/17 09:17 Dose: 18 mcg - Labs Labs: 08/01/17 04:20 08/01/17 04:20 PT 13.5 Seconds (9.8-13.1) H 07/25/17 21:02 INR 1.2 (0.9-1.2) 07/25/17 21:02 APTT 57.9 Seconds (25.6-37.1) H D 07/30/17 04:00 Assessment and Plan (1) CVA (cerebral vascular accident) Status: Acute (2) Pulmonary embolism Status: Acute (3) Closed left ankle fracture Status: Acute (4) Multiple injuries due to trauma Status: Acute (5) COPD (chronic obstructive pulmonary disease) Status: Chronic (6) DM2 (diabetes mellitus, type 2) Status: Chronic
[2017-08-01] MEDS: Tiotropium 18 mcg Cap For Inhalation INH SCH (09:50)
--- NOTE | 2017-08-01 11:06 | CP.PCM.PN ---
Subjective - Date & Time of Evaluation Date of Evaluation: 08/01/17 Time of Evaluation: 10:00 - Subjective Subjective: AAO x 3 for possible transfer to [facility] remains in AF @ controlled rate Objective - Vital Signs/Intake and Output Vital Signs (last 24 hours): Temp Pulse Resp BP Pulse Ox 98.6 F 105 H 20 164/96 H 97 08/01/17 08:27 08/01/17 09:51 08/01/17 08:27 08/01/17 09:51 08/01/17 08:27 - Medications Medications: Current Medications Acetaminophen (Tylenol 325 Mg Supp) 325 mg [place] Q6 PRN PRN Reason: Fever >100.4 F Acetaminophen (Tylenol 325mg Tab) 650 mg PO Q6 PRN PRN Reason: Pain, moderate (4-7) Last Admin: 07/30/17 22:59 Dose: 650 mg Amiodarone HCl (Cordarone) 200 mg PO DAILY [facility] Last Admin: 08/01/17 09:50 Dose: 200 mg Apixaban (Eliquis) 5 mg PO BID [facility] PRN Reason: Protocol Stop: 08/06/17 09:01 Last Admin: 08/01/17 09:50 Dose: 5 mg Atorvastatin Calcium (Lipitor) 40 mg PO DAILY [facility] Last Admin: 08/01/17 09:51 Dose: 40 mg Diltiazem HCl (Cardizem Cd) 120 mg PO DAILY [facility] Last Admin: 08/01/17 09:51 Dose: 120 mg Famotidine (Pepcid) 20 mg PO BID [facility] Last Admin: 08/01/17 09:51 Dose: 20 mg Insulin Human Lispro (Humalog) 0 units SC ACCU-CHECK [facility] PRN Reason: Protocol Last Admin: 08/01/17 06:26 Dose: Not Given Levalbuterol HCl (Xopenex) 0.63 mg INH Q4H PRN PRN Reason: Shortness of Breath Last Admin: 07/28/17 12:00 Dose: 0.63 mg Metoclopramide HCl (Reglan) 5 mg IVP Q6 PRN PRN Reason: Nausea/Vomiting Last Admin: 07/30/17 16:44 Dose: 5 mg Metoprolol Succinate (Toprol Xl) 50 mg PO DAILY [facility] Last Admin: 08/01/17 09:51 Dose: 50 mg Mupirocin (Bactroban Ointment) 1 applic TOP BID [facility] Last Admin: 08/01/17 09:49 Dose: 1 applic Simethicone (Mylicon Chew Tab) 80 mg PO QID PRN PRN Reason: Flatulence Last Admin: 07/29/17 17:24 Dose: 80 mg Tiotropium [place] (Spiriva) 18 mcg INH DAILY [facility] Last Admin: 08/01/17 09:50 Dose: 18 mcg - Labs Labs: 08/01/17 04:20 08/01/17 04:20 PT 13.5 Seconds (9.8-13.1) H 07/25/17 21:02 INR 1.2 (0.9-1.2) 07/25/17 21:02 APTT 57.9 Seconds (25.6-37.1) H D 07/30/17 04:00 Assessment and Plan (1) CVA (cerebral vascular accident) Status: Acute (2) Left fibular fracture Status: Acute (3) COPD (chronic obstructive pulmonary disease) Status: Chronic (4) DM2 (diabetes mellitus, type 2) Status: Chronic
[2017-08-01 12:34] VITALS: RESP 18
--- NOTE | 2017-08-01 15:54 | CP.PCM.DIS ---
Provider - Provider Date of Admission: 07/25/17 23:06 Attending physician: Sharmaine Overton MD Primary care physician: Dr. Jett Gray Consults: Dr. Roche- orthopedics Dr. Slaughter- neurology Dr. Flores- Cardiology Dr. Gray- pulmonary Time Spent in preparation of Discharge (in minutes): 30 Hospital Course - Lab Results Lab Results: Micro Results 07/29/17 19:11 Naris MRSA Culture (Admit) - Final MRSA DETECTED Most Recent Lab Values WBC 8.7 K/uL (4.8-10.8) 08/01/17 04:20 RBC 4.21 Mil/uL (4.40-5.90) L 08/01/17 04:20 Hgb 13.2 g/dL (12.0-18.0) 08/01/17 04:20 Hct 39.9 % (35.0-51.0) 08/01/17 04:20 MCV 94.6 fl (80.0-94.0) H 08/01/17 04:20 MCH 31.2 pg (27.0-31.0) H 08/01/17 04:20 MCHC 33.0 g/dL (33.0-37.0) 08/01/17 04:20 RDW 14.2 % (11.5-14.5) 08/01/17 04:20 Plt Count 180 K/uL (130-400) 08/01/17 04:20 MPV 9.1 fl (7.2-11.7) 07/30/17 04:00 Neut % (Auto) 90.1 % (50.0-75.0) H 07/30/17 04:00 Lymph % (Auto) 6.5 % (20.0-40.0) L 07/30/17 04:00 [place] % (Auto) 3.3 % (0.0-10.0) 07/30/17 04:00 Eos % (Auto) 0.0 % (0.0-4.0) 07/30/17 04:00 Baso % (Auto) 0.1 % (0.0-2.0) 07/30/17 04:00 Neut # 7.2 K/uL (1.8-7.0) H 07/30/17 04:00 Lymph # 0.5 K/uL (1.0-4.3) L 07/30/17 04:00 [place] # 0.3 K/uL (0.0-0.8) 07/30/17 04:00 Eos # 0.0 K/uL (0.0-0.7) 07/30/17 04:00 Baso # 0.0 K/uL (0.0-0.2) 07/30/17 04:00 Neutrophils % (Manual) 84 % (42-75) H 07/30/17 04:00 Band Neutrophils % 3 % (0-2) H 07/30/17 04:00 Lymphocytes % (Manual) 7 % (20-50) L 07/30/17 04:00 Monocytes % (Manual) 6 % (0-10) 07/30/17 04:00 Platelet Estimate Normal (NORMAL) 07/30/17 04:00 Anisocytosis (manual) Slight 07/30/17 04:00 Ovalocytes Slight 07/30/17 04:00 PT 13.5 Seconds (9.8-13.1) H 07/25/17 21:02 INR 1.2 (0.9-1.2) 07/25/17 21:02 APTT 57.9 Seconds (25.6-37.1) H D 07/30/17 04:00 Sodium 141 mmol/l (132-148) 08/01/17 04:20 Potassium 4.4 MMOL/L (3.6-5.0) 08/01/17 04:20 Chloride 107 mmol/L (98-107) 08/01/17 04:20 Carbon Dioxide 25 mmol/L (22-30) 08/01/17 04:20 Anion Gap 13 (10-20) 08/01/17 04:20 BUN 30 mg/dl (9-20) H 08/01/17 04:20 Creatinine 1.4 mg/dl (0.8-1.5) 08/01/17 04:20 Est GFR ( Amer) 59 08/01/17 04:20 Est GFR (Non-Af Amer) 49 08/01/17 04:20 POC Glucose (mg/dL) 101 mg/dL (65-110) 08/01/17 11:11 Random Glucose 103 mg/dL (75-110) 08/01/17 04:20 Hemoglobin A1c 5.9 % (4.2-6.5) 07/25/17 21:06 Calcium 8.3 mg/dL (8.4-10.2) L 08/01/17 04:20 Magnesium 2.7 MG/DL (1.6-2.3) H 07/30/17 10:25 Total Bilirubin 1.2 mg/dl (0.2-1.3) 08/01/17 04:20 AST 51 U/L (17-59) 08/01/17 04:20 ALT 78 U/L (21-72) H D 08/01/17 04:20 Alkaline Phosphatase 61 U/L (38-126) 08/01/17 04:20 Troponin I < 0.0120 ng/mL (0.00-0.120) 07/26/17 10:39 NT-Pro-B Natriuret Pep 1710 pg/ml (0-900) H 07/25/17 21:02 Total Protein 6.6 G/DL (6.3-8.2) 08/01/17 04:20 Albumin 3.2 g/dL (3.5-5.0) L 08/01/17 04:20 Globulin 3.4 gm/dL (2.2-3.9) 08/01/17 04:20 Albumin/Globulin Ratio 0.9 (1.0-2.1) L 08/01/17 04:20 Triglycerides 135 mg/DL (0-149) 07/25/17 21:02 Cholesterol 183 mg/dL (0-199) 07/25/17 21:02 LDL Cholesterol Direct 131 mg/dL (0-129) H 07/25/17 21:02 HDL Cholesterol 32 MG/DL (30-70) 07/25/17 21:02 Urine Color Yellow (YELLOW) 07/26/17 11:39 Urine Clarity Slighty-cloudy (Clear) 07/26/17 11:39 Urine pH 5.0 (5.0-8.0) 07/26/17 11:39 Ur Specific [place] 1.039 (1.003-1.030) H 07/26/17 11:39 Urine Protein Negative mg/dL (NEGATIVE) 07/26/17 11:39 Urine Glucose (UA) Neg mg/dL (Normal) 07/26/17 11:39 Urine Ketones Negative mg/dL (NEGATIVE) 07/26/17 11:39 Urine Blood Negative (NEGATIVE) 07/26/17 11:39 Urine Nitrate Negative (NEGATIVE) 07/26/17 11:39 Urine Bilirubin Negative (NEGATIVE) 07/26/17 11:39 Urine Urobilinogen 0.2-1.0 mg/dL (0.2-1.0) 07/26/17 11:39 Ur Leukocyte Esterase Neg Beb[place]/uL (Negative) 07/26/17 11:39 Urine Microscopic WBC < 1 /hpf (0-5) 07/26/17 11:39 Ur Squamous Epith Cells < 1 /hpf (0-5) 07/26/17 11:39 Digoxin 1.5 ng/mL (0.8-2.0) 07/31/17 05:20 Alcohol, Quantitative < 10 mg/dl (0-10) 07/25/17 21:02 Blood Type A POSITIVE 07/25/17 21:02 Antibody Screen Negative 07/25/17 21:02 BBK History Checked Patient has bt 07/25/17 21:02 - Hospital Course Hospital Course: 77-year-old man,former heavy cigarette smoker with a longstanding , COPD, atrial fibrillation, history of PE and DVt s/p IVC filter on Pradaxa , DM , HTN brought to ER for evaluation after a fall from 5 flights of stairs. As per patient he was taking the stairs up to his apartment when he felt left arm and left leg weakness and numbness. He fell down the stairs and sustained multiple injuries . He was brought to the ED and a code stroke was called for left sided weakness and an initial NIHSS of 8. CT scan of the head did not show any acute findings and CTA of the head/neck was negative for intracranial thrombus, but was found to have a pulmonary embolism on left main and descending pulmonary artery . He was started on heparin drip and admitted to ICU . Imaging of pelvis, left arm , wrist , neck all showed no fractures except left ankle non displaced malleolar fracture for which Dr. Roche was consulted. The patient did have episodes of atrial fibrillation with rapid ventricular response during his stay. For this Dr. Flores was consulted from cardiology and started Amiodarone bolus and drip- now the patient is maintained on po amiodarone. Digoxin was not tolerated by the patient as he began having nausea and abdominal discomfort after starting it. He was also noted to have an ileus which improved with reglan and Lactulose- he started having liquid stools after Lactulose. Repeat CT of the head on 07/28 did show an acute right parietal infarct. As per neuro, statin and aspirin were continued. PT/OT/ST were started- Patient did pass swallow evaluation on 07/28. Physical therapy recommends subacute rehabilitation upon discharge for further strengthening. The patient is to be discharged to [facility] in [facility] today. He states that he feels a little better today. He is having frequent BM's. Denies fever, chills , abdominal pain. Hemodynamically and neurologically stable at this time. Denies sob, cp. C/o occasional nausea 1. Acute CVA presented with left facial droop, dysarthria,left side numbness and weakness. At present most of his weakness and numbness improved Neuro eval appreciated Allowed permissive hypertension - ok now to slowly restart HTN meds as per Neuro patient passed swallow eval Continue Statin, ASA patient could not tolerate MRI head. MRA neck showed 30-40 % stenotic lesion to left carotid bifurcation Rpt Head CT showed Acute right parietal lobe infarct PT/OT / speech eval D/C to [facility] today- patient is stable from a cardiac standpoint for discharge as stated by Dr. Flores. 2. Subacute PE patient has history of PE , DVT s/p IVC filter and was on Pradaxa ( failure on Pradaxa?) Started on heparin drip Switched to Eliquis 5 mg bid as rec by Dr Slaughter V/Q scan : indeterminate 3. ARF improved, most likely prerenal Continue IVF Crea 1.9 on admission now 1.0 4. A fib with RVR rate uncontrolled patient has history of chronic afib and was on metoprolol and cardizem at home both metoprolol and cardizem held to allow permissive hypertension as per Neuro , ok to slowly restart BB - started Toprol XL 50 mg daily Pt was placed on Amiodarone and Digoxin instead however unclear if Digoxin may be the etiology for pt's nausea and abd discomfort Will cont Amiodarone. Cardizem also added. 5.DM2 started diet accuchecks, insulin coverage will hold off any oral Hypoglycemics bec pt has very poor PO intake 6. Non displaced left malleolar Ankle Fx pain control ankle wrapped in VIDHI bandage podiatry consult appreciated NWB to LLE PT[facility]OT at [facility] 7. COPD (chronic obstructive pulmonary disease) continue Xopenex as recommended by pulmonary. cont mucomyst and spiriva 8. Ileus Abdominal Obst xray : Ileus Pt on Reglan started Simethicone + BM 9. DVT prophylaxis Acute Eliquis Discharge Exam - Head Exam Head Exam: ATRAUMATIC - Additional Findings Additional findings: Physical exam: Constitutional- cooperative, awake, alert. Head- NCAT, PERRL Eye- PERRL, normal accommodation ENT- normal exam, MMM. Neck- normal inspection, supple, no JVD Respiratory- CTAB, no wheezes rales rhonchi Cardiovascular- Irregular rate and rhythm +S1, +S2 no MRG GI/Abdominal- protuberant, normal bowel sounds, soft, no mass, no hsm Skin- warm, dry Extremities Exam- Left leg in VIDHI bandage. normal capillary refill, normal inspection Neurological Exam- alert, stable gait Psych- normal mood, normal affect Discharge Plan - Follow Up Plan Condition: CRITICAL Disposition: REHAB FACILITY/REHAB UNIT
[2017-08-01 16:29] VITALS: BP 149/94; PULSE 97; TEMP 97.3; O2SAT 97
== END 2017-08-01 17:05 | DRG 64 ==
LOC: H.ER 20:19 → H.ERHOLD 23:06 → H.ICU/CCU 07-26 01:35 → H.TEL 07-29 18:41
PROVIDERS: ADMIT Internal Medicine; ATTEND Internal Medicine
PROC: 3E0234Z Introduction of Serum, Toxoid and Vaccine into Muscle, Percutaneous Approach (ICD-10-PCS; principal; 2017-07-26)
DX: I63.9 Cerebral infarction, unspecified (principal); I26.99 Other pulmonary embolism without acute cor pulmonale; N17.9 Acute kidney failure, unspecified; K56.7 Ileus, unspecified; I47.2 Ventricular tachycardia; I47.1 Supraventricular tachycardia; I48.0 Paroxysmal atrial fibrillation; G81.94 Hemiplegia, unspecified affecting left nondominant side; S82.65XA Nondisplaced fracture of lateral malleolus of left fibula, initial encounter for closed fracture; I48.2 Chronic atrial fibrillation; E86.0 Dehydration; E11.9 Type 2 diabetes mellitus without complications; I69.392 Facial weakness following cerebral infarction; I69.322 Dysarthria following cerebral infarction; W10.9XXA Fall (on) (from) unspecified stairs and steps, initial encounter; I10 Essential (primary) hypertension; M19.042 Primary osteoarthritis, left hand; J44.9 Chronic obstructive pulmonary disease, unspecified; Z79.01 Long term (current) use of anticoagulants; Z79.82 Long term (current) use of aspirin; Z87.891 Personal history of nicotine dependence; Z87.01 Personal history of pneumonia (recurrent); Z86.711 Personal history of pulmonary embolism; Z86.718 Personal history of other venous thrombosis and embolism; Z23 Encounter for immunization; Y92.009 Unspecified place in unspecified non-institutional (private) residence as the place of occurrence of the external cause